=== PATIENT | female | born 1970 | race African-American/Black ===

== ENCOUNTER 2025-03-31 13:42 | Outpatient (CLI) | payer OTHER, MEDICAID, SELFPAY ==
--- OUTSIDE RECORDS SUMMARY | 2025-03-31 13:49 | XMS_ITS | Encounter Summary ---
Author Organization [facility] Address 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
--- OUTSIDE RECORDS SUMMARY | 2025-03-31 13:49 | XMS_ITS | Encounter Summary ---
Author Organization [facility] Address [address] [place] [address] Care Team Providers Care Validation Leader Name Role Phone Mannie Bhakta MD Primary Care Provider [phone] Encounter Details Date Type Department Care Team (Latest Contact Info) Description 06/18/[address] 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
--- OUTSIDE RECORDS SUMMARY | 2025-03-31 13:50 | XMS_ITS | CONTINUITY OF CARE DOCUMENT ---
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 completed - Dov Macario DO Syncope vasovagal seems likely active Dov Macario DO Palpitations active Dov Macario DO Dizziness completed - Dov Macario DO Carotid artery stenosis - bilateral active Dov Macario DO Hypercholesterolemia active Dov Macario DO Chest pain-type to be determined completed - Dov Macario DO Cardiology examination active Greg Macario DO ENCOUNTERS Date Type Provider Location Encounter Diag nosis 1 - 1 In-person encounter Office Visit Dov Barry Renaldo DO [place] [facility] 0 - 0 In-person encounter Office Visit Dov Presleyon Renaldo [place] [facility] Cardiology examination 9 - 9 In-person encounter Office Visit Dov Presleyon Renaldo DO [place] [facility] 9 - 9 In-person encounter Office Visit Dov Macario DO [facility] Office Leukopenia to see hematologi . 2 - 2 In-person encounter Office Visit Dov Macario DO [facility] 8 - 8 In-person encounter Office Visit Dov Macario DO [facility] Chest pain-type to be determined 9 - 7 In-person encounter Office Visit Allan [facility] 1 - 1 In-person encounter Office Visit Dov Macario DO [facility] 5 - 5 In-person encounter Office Visit Dov Macario DO [facility] Office 1 - 1 In-person encounter Office Visit Dov Macario DO [facility] DizzinessChest pain-type to be determined 9 - 9 In-person encounter Office Visit Dov Macario DO [facility] 8 - 8 In-person encounter Office Visit Dov Macario DO [facility] Office Dyspnea on exertionChest mary ann n atypicalCarotid artery stenosis - bilateralHypercholesterolemia 6 - 6 In-person encounter Office Visit Dov Macario DO [facility] Syncope vasovagal seems likelyPalpitations 4 - 4 In-person encounter Office Visit Dov [facility] Chest pain-type to be determinedClaudication Intermittent 5 - 5 In-person encounter Office Visit Dov Macario DO [facility] Family Hx heart disease VITAL SIGNS Date Observation Value Provider Body Mass Index (Ratio) 24.62 kg/m2 [facility] Barry Renaldo blood pressure, diastolic 73 mm[Hg] [facility], systolic 120 mm[Hg] Maggie [facility]St[facility] oxygen saturation, oximetry 99 % [facility] pulse rate 66 /min [facility] respiratory rate E&M 12 /min [facility] weight E&M 139 [lb_av] [facility] height E&M 63 [in_i] [facility] blood pressure, cuff size regular chicho Worrell Body Mass Index (Ratio) 25.15 kg/m2 [facility] Barry Renaldo blood pressure, diastolic 70 mm[Hg] Li nkLogic blood pressure, systolic 104 mm[Hg] Delilah kLogic blood pressure, diastolic 70 mm[Hg] Luanne motta Jaramillo blood pressure, systolic 104 mm[Hg] Yoli sin Jaramillo blood pressure, cuff size regular Luanne arorae Jaramillo pulse rate 70 /min [facility] Conrad s oxygen saturation, oximetry 98 % Janina Jaramillo weight E&M 142 [lb_av] Janina Conrad s height E&M 63 [in_i] Haigler Conrad s Body Mass Index (Ratio) 26.04 kg/m2 [facility] Barry Renaldo [place] blood pressure, diastolic 75 mm[Hg] Anju Frey blood pressure, systolic 102 mm[Hg] [facility] in [facility] pulse rate 62 /min [facility] oxygen saturation, oximetry 97 % [facility] respiratory rate E&M 16 /min [facility] blood pressure, cuff size regular [facility] weight E&M 147 [lb_av] [facility] height E&M 63 [in_i] [facility] Body Mass Index (Ratio) 27.63 kg/m2 [facility] blood pressure, diastolic 66 mm[Hg] An [facility] blood pressure, systolic 97 mm[Hg] Any pooja Max pulse rate 65 /min Radha Max oxygen saturation, oximetry 99 % Radha Max weight E&M 156 [lb_av] Radha Max blood pressure, cuff size large An marialuisa Max height E&M 63 [in_i] Radha Max Body Mass Index (Ratio) 27.81 kg/m2 [facility] Barry [facility] blood pressure, diastolic 62 mm[Hg] Yenni nkLog blood pressure, systolic 94 mm[Hg] Delilah kLog blood pressure, cuff size regular [facility] blood pressure, diastolic 62 mm[Hg] Ke rri [facility]he [facility] blood pressure, systolic 94 mm[Hg] Melania ri Jno oxygen saturation, oximetry 99 % Connie Jon respiratory rate E&M 14 /min Connie esparza pulse rate 74 /min Connie Suhail [facility] weight E&M 157 [lb_av] Connie Kimberleynenfe lder height E&M 63 [in_i] Connie Jang lder Body Mass Index (Ratio) 26.32 kg/m2 Allan Hancock MD blood pressure, diastolic 60 mm[Hg] Polly Zayas blood pressure, systolic 110 mm[Hg] Nelly Zayas oxygen saturation, oximetry 98 % Raji Zayas respiratory rate E&M 16 /min Floridalma Zayas pulse rate 86 /min Raji Edouard nssebastian weight E&M 148.6 [lb_av] Raji sommerson height E&M 63 [in_i] Raji Edouard nson Body Mass Index (Ratio) 26.04 kg/m2 Pramichell Leera DO blood pressure, diastolic 54 mm[Hg] Li nkLogic blood pressure, systolic 92 mm[Hg] Delilah kLogic blood pressure, resting No Rey ty [place] blood pressure, cuff size regular Kr isty Jose E weight E&M 147 [lb_av] Corazon Jose E respiratory rate E&M 18 /min Corazon [place] pulse rate 67 /min Corazon Jose E blood pressure, diastolic 54 mm[Hg] Kr isty [place] blood pressure, systolic 92 mm[Hg] Kri sty Jose E oxygen saturation, oximetry 99 % Corazon Jose E height E&M 63 [in_i] Corazon Jose E Body Mass Index (Ratio) 22.49 kg/m2 April Reddy Renaldo DO blood pressure, cuff size regular Kr isty [place] blood pressure, diastolic 60 mm[Hg] Kr isty [place] blood pressure, systolic 100 mm[Hg] Kri sty [place] pulse rate 87 /min Corazon oxygen saturation, oximetry 100 % Corazon respiratory rate E&M 19 /min Cor[place]on weight E&M 127 [lb_av] Corazon height E&M 63 [in_i] Corazon Body Mass Index (Ratio) 21.61 kg/m2 [facility] Barry Macario weight E&M 122 [lb_av] [facility] E&M 63 [in_i] [facility] Body Mass Index (Ratio) 23.03 kg/m2 [facility] Barry [facility] blood pressure, diastolic 70 mm[Hg] Jerry Northby blood pressure, systolic 102 mm[Hg] Jasmyne dario oxygen saturation, oximetry 95 % Corazon respiratory rate E&M 16 /min Corazon pulse rate 58 /min [place] blood pressure, cuff size regular Jerry sanford weight E&M 130 [lb_av] Corazon height E&M 63 [in_i] Corazon Body Mass Index (Ratio) 23.38 kg/m2 [facility] Barry [facility] pulse rate 57 /min [facility]ei [facility] oxygen saturation, oximetry 98 % Alexei Rodriguez blood pressure, diastolic 58 mm[Hg] Chaz Rodriguez blood pressure, systolic 94 mm[Hg] Rhiannon Rodriguez blood pressure, resting No Rhiannonr martha Rodriguez respiratory rate E&M 16 /min Alexei Rodriguez height E&M 63 [in_i] Alexei [facility] weight E&M 132 [lb_av] Alexei Mayers ski ALLERGIES No Known Drug Allergies RESULTS Date Observation Value Provider Reference Range Interpretation Location free thyroxine index 2.5 LinkLogic 1.2-4.9 triiodothyronine resin uptake 30 % LinkLogic 24-39 thyroxine, serum, total 8.4 ug/dL LinkLogic 4.5-12.0 thyroid stimulating hormone, serum 0.631 u[IU]/mL LinkLogic 0.450-4.500 lipoprotein, beta, serum, point, quantitative, calculated 163 mg/dL Link[facility]ic 0-99 High HDL cholesterol, serum 62 mg/dL LinkLogic >39 triglyceride, serum, random 63 mg/dL LinkLogic 0-149 cholesterol, serum 236 mg/dL Link[facility]ic 100-199 High alanine aminotransferase (SGPT), serum 16 1/L Link[facility]ic 0-32 aspartate aminotransferase (SGOT), serum 17 1/L Link[facility]ic 0-40 alkaline phosphatase, serum 73 1/L [facility] 44-121 bilirubin, serum, total 0.8 mg/dL [facility] 0.0-1.2 globulin, serum 2.9 [facility] 1.5-4.5 albumin, serum 4.8 g/dL [facility]ic 3.8-4.9 protein, total, serum 7.7 g/dL [facility] 6.0-8.5 calcium, serum 9.8 mg/dL [facility]ic 8.7-10.2 carbon dioxide, venous blood 21 mmol/L Link[facility]ic 20-29 chloride, serum 103 mmol/L Link[facility]ic 96-106 potassium, serum 4.1 mmol/L LinkLogic 3.5-5.2 sodium, serum 141 mmol/L Link[facility]ic 026-405 2136/03/ 16 urea nitrogen/creatinine ratio, serum 18 Link[facility]ic 9-23 creatinine, serum 0.76 mg/dL [facility]ic 0.57-1.00 urea nitrogen, blood 14 mg/dL Link[facility]ic 6-24 blood glucose, random 83 mg/dL Link[facility]ic 70-99 basophil count, absolute 0.0 x10E3/uL LinkLogic 0.0-0.2 Eosinophil Absolute Count 0.0 X10E3/UL LinkLogic 0.0-0.4 monocyte count, blood, automated 0.4 X10E3/UL LinkLogic 0.1-0.9 lymphocyte count, blood, automated 0.9 X10E3/UL Link[facility]ic 0.7-3.1 Absolute Neutrophils 2.1 X10E3/UL LinkLogic 1.4-7.0 basophils as percent of blood leukocytes 0 % LinkLogic Not Estab. eosinophils as percent of blood leukocytes 1 % LinkLogic Not Estab. monocytes as percent of blood leukocytes 10 % LinkLogic Not Estab. lymphocytes as percent of blood leukocytes 27 % LinkLogic Not Estab. neutrophils as percent of blood leukocytes 62 % LinkLogic Not Estab. platelet count 235 X10E3/UL [facility] 704-853 5677/03/ 15 red blood cell distribution width 12.3 % Link[facility]ic 11.7-15.4 mean corpuscular hemoglobin concentration, RBC 33.5 G/DL Link[facility]ic 31.5-35.7 mean corpuscular hemoglobin, RBC 32.9 pg LinkLogic 26.6-33.0 mean corpuscular volume, RBC 98 fL LinkLogic 79-97 High hematocrit, blood 38.2 % LinkLogic 34.0-46.6 hemoglobin, blood 12.8 g/dL LinkLogic 11.1-15.9 erythrocyte (RBC) count 3.89 X10E6/UL LinkLogic 3.77-5.28 leukocyte count, blood 3.4 X10E3/UL LinkLogic 3.4-10.8 Estimated Glomerular Filtration Rate (calc) 105 mL/min/{ 1.73_m2} [place] [address] cholesterol, non-HDL, total 95 mg/dL [place] [address] HDL CHOLESTEROL 54 mg/dL LinkLogic >=40 Normal , [place] [address] triglyceride, serum, fasting 54 mg/dL LinkLogic <=149 Normal , [place] [address] cholesterol, serum 149 mg/dL LinkLogic 30-199 Normal , [place] [address] aspartate aminotransferase (SGOT), serum 30 1/L LinkLogic 10-45 Normal [place] [address] alanine aminotransferase (SGPT), serum 30 1/L LinkLogic 7-45 Normal , [place] [address] Alkaline phosphatase 62 LinkLogic 40-130 Normal C, [place] [address] albumin, serum 4.3 g/dL LinkLogic 3.5-5.0 Normal [place] [address] protein, total, serum 7.3 g/dL LinkLogic 6.5-8.5 Normal [place] [address] bilirubin, serum, total 0.4 mg/dL LinkLogic 0.1-1.2 Normal [place] [address] calcium, serum 8.4 mg/dL LinkLogic 8.5-10.3 Low C, [place] [address] blood glucose, random 107 mg/dL LinkLogic 70-199 Normal , [place] [address] creatine, serum 0.66 mg/dL LinkLogic 0.60-1.10 Normal C, [place] [address] urea nitrogen, blood 11 mg/dL LinkLogic 8-25 Normal C, [place] [address] anion gap, serum 12 mmol/L LinkLogic 2-15 Normal C, [place] [address] carbon dioxide, venous blood 20 mmol/L LinkLogic 22-32 Low C, [place] [address] chloride, serum 105 mmol/L LinkLogic 97-110 Normal , [place] [address] potassium, serum 4.3 MMOL/L LinkLogic 3.3-4.9 Normal , [place] [address] sodium, serum 137 mmol/L LinkLogic 135-145 Normal C, [place] [address] thyroid stimulating hormone, serum 1.40 MCIUNIT/ ML LinkLogic 0.30-4.20 Normal , [place] [address] Absolute Basophils 0.0 K/CUMM LinkLogic 0.0-0.1 Normal , [place] [address] Absolute Monocytes 0.4 K/CUMM LinkLogic 0.2-0.8 Normal , [place] [address] Absolute Lymphocytes 1.1 K/CUMM LinkLogic 0.8-3.3 Normal , [place] [address] Absolute Neutrophils 2.5 K/CUMM LinkLogic 1.7-6.5 Normal C, [place] [address] nucleated red blood cells as percent of blood leukocytes 0.00 K/CUMM LinkLogic 0.00-0.01 Normal red blood cell distribution width, size density 39.4 fL LinkLogic 35.7-48.1 Normal mean corpuscular hemoglobin concentration, RBC 34.4 G/DL LinkLogic 32.3-35.7 Normal mean corpuscular hemoglobin, RBC 32.6 pg LinkLogic 27.1-33.3 Normal mean corpuscular volume, RBC 94.9 fL LinkLogic 81.3-96.4 Normal erythrocyte count, whole blood 3.89 M/CUMM LinkLogic 3.90-5.20 Low mean platelet volume 9.8 fL LinkLogic 9.1-12.3 Normal platelet count 264 10*3/uL LinkLogic 150-400 Normal hematocrit, blood 36.9 % LinkLogic 35.6-45.5 Normal hemoglobin, blood 12.7 g/dL LinkLogic 11.9-15.5 Normal Estimated Glomerular Filtration Rate (calc) 108 mL/min/{ 1.73_m2} LinkLogic C, [place] [address] cholesterol, non-HDL, total 102 mg/dL LinkLogic C, [place] [address] HDL CHOLESTEROL 63 mg/dL LinkLogic >=40 Normal , [place] [address] triglyceride, serum, fasting 51 mg/dL LinkLogic <=149 Normal C, [place] [address] cholesterol, serum 165 mg/dL LinkLogic 30-199 Normal , [place] [address] aspartate aminotransferase (SGOT), serum 17 1/L LinkLogic 10-45 Normal C, [place] [address] alanine aminotransferase (SGPT), serum 21 1/L LinkLogic 7-45 Normal C, [place] [address] Alkaline phosphatase 66 LinkLogic 40-130 Normal C, [place] [address] albumin, serum 4.3 g/dL LinkLogic 3.5-5.0 Normal C, [place] [address] protein, total, serum 7.1 g/dL LinkLogic 6.5-8.5 Normal , [place] [address] bilirubin, serum, total 0.9 mg/dL LinkLogic 0.1-1.2 Normal , [place] [address] calcium, serum 8.4 mg/dL LinkLogic 8.5-10.3 Low C, [place] [address] blood glucose, random 102 mg/dL LinkLogic 70-199 Normal , [place] [address] creatine, serum 0.62 mg/dL LinkLogic 0.60-1.10 Normal , [place] [address] urea nitrogen, blood 12 mg/dL LinkLogic 8-25 Normal C, [place] [address] anion gap, serum 12 mmol/L LinkLogic 2-15 Normal C, [place] [address] carbon dioxide, venous blood 22 mmol/L LinkLogic 22-32 Normal C, [place] [address] chloride, serum 105 mmol/L LinkLogic 97-110 Normal C, [place] [address] potassium, serum 4.1 MMOL/L LinkLogic 3.3-4.9 Normal C, [facility] [address] [facility] [address] sodium, serum 139 mmol/L LinkLogic 135-145 Normal C, [address] [address] lipoprotein, beta, serum, point, quantitative, calculated 135 mg/dL LinkLogic 0-99 High HDL cholesterol, serum 65 mg/dL LinkLogic >39 triglyceride, serum, random 73 mg/dL LinkLogic 0-149 cholesterol, serum 213 mg/dL LinkLogic 100-199 High alanine aminotransferase (SGPT), serum 10 1/L LinkLogic 0-32 aspartate aminotransferase (SGOT), serum 13 1/L LinkLogic 0-40 alkaline phosphatase, serum 52 1/L LinkLogic 39-117 bilirubin, serum, total 0.9 mg/dL LinkLogic 0.0-1.2 albumin/globulin ratio, serum 1.7 LinkLogic 1.2-2.2 globulin, serum 2.5 LinkLogic 1.5-4.5 albumin, serum 4.2 g/dL LinkLogic 3.8-4.8 protein, total, serum 6.7 g/dL LinkLogic 6.0-8.5 calcium, serum 8.8 mg/dL LinkLogic 8.7-10.2 carbon dioxide, venous blood 23 mmol/L LinkLogic 20-29 chloride, serum 105 mmol/L LinkLogic 96-106 potassium, serum 4.4 mmol/L LinkLogic 3.5-5.2 sodium, serum 137 mmol/L LinkLogic 458-595 8055/04/ 17 urea nitrogen/creatinine ratio, serum 14 LinkLogic 9-23 eGFR if 109 mL/min/{ 1.73_m2} LinkLogic >59 eGFR if not 95 mL/min/{ 1.73_m2} LinkLogic >59 creatinine, serum 0.74 mg/dL LinkLogic 0.57-1.00 urea nitrogen, blood 10 mg/dL LinkLogic 6-24 blood glucose, random 104 mg/dL LinkLogic 65-99 High lipoprotein, beta, serum, point, quantitative, calculated 91 mg/dL LinkLogic 0-99 HDL cholesterol, serum 63 mg/dL LinkLogic >39 triglyceride, serum, random 47 mg/dL LinkLogic 0-149 cholesterol, serum 164 mg/dL LinkLogic 100-199 HISTORY OF MEDICATION USE Medication Status Instructions Dates Provider Indications Com ments magnesium oxide 250 mg magnesium tablet active Take 1 tablet by mouth every night Dov Macario DO Zetia 10 mg tablet active Take 1 tablet by mouth once a day Dov Macario DO rosuvastatin 20 mg tablet completed Take 1 tablet by mouth every night due for follow up - Dov Macario DO rosuvastatin 20 mg tablet completed Take 1 tablet by mouth every night - Connie Webb Protonix 40 mg tablet,delayed release (DR/EC) completed Take 1 tablet by mouth once a day - Allan Hancock MD rosuvastatin 20 mg tablet completed Take 1 tablet by mouth once a day - Dov Macario DO Crestor 20 mg tablet completed 1 tablet by mouth once a day - Dov Macario DO aspirin 81 mg tablet,delayed release (DR/EC) active 1 tablet by mouth once a day Dov Macario DO IBUPROFEN 200 MG ORAL TABLET completed as needed - Eleanor Marcelo SOCIAL HISTORY Date Observation Value Provider smoking status Never smoker Radha Max smoking status Never smoker Connie tapia social history E&M S moking History: Adolfo mi has never smoked. Allan Hancock MD social history reviewed E&M philippe herreraed - no changes required Allan Hancock MD smoking status Never smoker Raji Tinoco smoking status Never smoker Corazon Dorantes smoking status Never smoker Corazon Dorantes smoking status Never smoker Eleanor sims smoking status Never smoker Corazon Dorantes smoking status Never smoker Alexei Gracie simeon FAMILY HISTORY Family Member Condition Father Family History of Co ronary Artery Disease: Mother Family History of Re nal Disease: Mother Family History of Hy pertension: INSURANCE PROVIDERS Payer name Policy type / Coverage type [place] [employer] party ID [employer] Commercial insurance co [facility] [id number] [facility] Medicaid 1 [id number] ADVANCE DIRECTIVES Name Date DISCUSSED - NO DECISION MADE TREATMENT PLAN Date Name Performer [id number],C, L DL 135 Trigs 73 in . L abs 03/23: chem ok, LDL 92 Trigs 51 r echeck in this upcoming march range g oal LDL < 70 Her updated medication list for this problem includes: Rosuvastatin 20 Mg Tablet (Rosuvastatin) ..... Take 1 tablet by mouth once a day Dov Barry Renaldo [place] [id number],C, m oderate bilateral 02/2020 c ta denied r epeat duplex moderate ica dz bilaterally r epeat in Carotid duplex 02/21 moderate LICA stenosis. a spirin o n statin Dov Macario DO [id number],C, n ormal telesentry i advised her to decrease caffeine intake. H er updated medication list for this problem includes: Aspirin 81 Mg Tablet,delayed Release (dr/ec) (Aspirin) ..... 1 tablet by mouth once a day Dov Macario DO [id number],C, n ormal telesentry i advised her to decrease caffeine intake. H er updated medication list for this problem includes: Aspirin 81 Mg Tablet,delayed Release (dr/ec) (Aspirin) ..... 1 tablet by mouth once a day Dov Macario [id number],C,L DL 135 Trigs 73 in 21. H er updated medication list for this problem includes: Rosuvastatin 20 Mg Tablet (Rosuvastatin) ..... Take 1 tablet by mouth once a day Dov Macario DO [id number],C, m oderate bilateral 02/2020 c ta denied r epeat duplex 21 moderate ica dz bilaterally r epeat in Carotid duplex 02/21 moderate LICA stenosis. a spirin o n statin Dov Barrysebastian Macario DO [id number],B, n ormal telesentry last month i advised her to decrease caffeine intake. H er updated medication list for this problem includes: Aspirin 81 Mg Tablet,delayed Release (dr/ec) (Aspirin) ..... 1 tablet by mouth once a day Allan Hancock MD [id number],B, n ormal telesentry last month i advised her to decrease caffeine intake. Allan Hancock MD [id number],C, m oderate bilateral 02/2020 c ta denied r epeat duplex 21 moderate ica dz bilaterally per Dr Macario r epeat in a spirin o n statin Allan Hancock MD [id number],C, H er updated medication list for this problem includes: Rosuvastatin 20 Mg Tablet (Rosuvastatin) ..... Take 1 tablet by mouth once a day Allan Hancock MD [id number],C, R derrickiewed her past testing including negative nuc reg 08/2020, CCS 0 in 08/2020, normal telesentry 07/2021, normal echo 02/2020. I suspect her symptoms are noncardiac etiology. Will try her on protonix which may help if GERD Prevention / risk reduction of CAD based on AHA/ACC guidelines involving Smoking, Blood Pressure control, Lipid management, Physical activity, Weight management, Diabetes management, use of antiplatelet / anticoagulant agents, Renin Angiotensin-aldosterone system blockers, beta blockers, and compliance with medications discussed with patient. Her updated medication list for this problem includes: Aspirin 81 Mg Tablet,delayed Release (/ec) (Aspirin) ..... 1 tablet by mouth once a day Allan Hancock MD [id number],C, t gab in 02/2020 was nml, nsr h aving more palps Dov Macario DO [id number],C, m oderate bilateral 02/2020 c ta denied r epeat duplex 21 moderate ica dz bilaterally r epeat in a spirin o n statin Dov Macario DO [id number],C, L abs 08/21 LDL 91, Trigs 47 h as pvd started crestor 20 takes every other day r echeck 21: LDL 135 Trigs 73 h ad been off statin will resume (has carotid dz) Her updated medication list for this problem includes: Rosuvastatin 20 Mg Tablet (Rosuvastatin) ..... Take 1 tablet by mouth once a day Dov Macario DO Cardiology: L DL 135 Trigs 73 in . L abs 03/23: chem ok, LDL 92 Trigs 51 r echeck in this upcoming march range L DL 84 in 11/24 n ot tolerating rosuvastatin - does not tolerate L abs 12/26: LDL 158, chem ok LFTs ok g oal LDL < 70 t ry zetia L abs : LDL 163, tsh ok, chem ok, cbc ok. h as not been on zetia will resend. This visit has been a part of the consistent, comprehensive, and ongoing management of the chronic medical condition(s) listed above for patient. Dov Macario DO Cardiology: n ormal telesentry i advised her to decrease caffeine intake. she feels like its' caffeine related. 1 week tele pending try mg at night m ay consider low dose bb but has resting hr 60s and hesitant to try new meds. Her updated medication list for this problem includes: Aspirin 81 Mg Tablet,delayed Release (dr/ec) (Aspirin) ..... 1 tablet by mouth once a day Dov Macario DO Cardiology: m oderate bilateral 02/2020 c ta denied r epeat duplex 21 moderate ica dz bilaterally r epeat in 22 Carotid duplex 02/21 moderate LICA stenosis. m oderate in 23 r echeck 24 mild plaque r epeat 26 range. a spirin dnt statin t ry zetia L abs : LDL 163, tsh ok, chem ok, cbc ok h as not been on zetia will resend. Dov Macario DO Cardiology: m oderate bilateral 02/2020 c ta denied r epeat duplex 21 moderate ica dz bilaterally r epeat in 22 Carotid duplex 02/21 moderate LICA stenosis. m oderate in 23 r echeck 24 mild plaque r epeat 26 range. a spirin dnt statin t ry zetia r echeck lipid Dov Macario DO Cardiology: L DL 135 Trigs 73 in . L abs 03/23: chem ok, LDL 92 Trigs 51 r echeck in this upcoming march range L DL 84 in 11/24 n ot tolerating rosuvastatin - does not tolerate L abs 12/26: LDL 158, chem ok LFTs ok g oal LDL < 70 t ry zetia r echeck per pcp around fall 2023 range. This visit has been a part of the consistent, comprehensive, and ongoing management of the chronic medical condition(s) listed above for patient. Dov Macario DO Cardiology:normal te lesentry i advised her to decrease caffeine intake. 1 week tele try mg at night m vonnie millersider low dose bb Her updated medication list for this problem includes: Aspirin 81 Mg Tablet,delayed Release (dr/ec) (Aspirin) ..... 1 tablet by mouth once a day Dov Macario DO Cardiology: n ormal telesentry i advised her to decrease caffeine intake. H er updated medication list for this problem includes: Aspirin 81 Mg Tablet,delayed Release (dr/ec) (Aspirin) ..... 1 tablet by mouth once a day Dov Macario DO Cardiology: m oderate bilateral 02/2020 c ta denied r epeat duplex 21 moderate ica dz bilaterally r epeat in 22 Carotid duplex 4 moderate LICA stenosis. m oderate in 23 r echeck 24 mild plaque r epeat 26 range. a spirin dnt statin t ry zetia r echeck lipid This visit has been a part of the consistent, comprehensive, and ongoing management of the chronic medical condition(s) listed above for patient. Dov Macario DO Cardiology: L DL 135 Trigs 73 in 21. L abs 03/23: chem ok, LDL 92 Trigs 51 r echeck in this upcoming march range L DL 84 in 11/24 n ot tolerating rosuvastatin - does not tolerate L abs 12/26: LDL 158, chem ok LFTs ok g oal LDL < 70 t ry zetia r echeck per pcp around fall 2023 range. This visit has been a part of the consistent, comprehensive, and ongoing management of the chronic medical condition(s) listed above for patient. Dov Macario DO Cardiology: n ormal telesentry i advised her to decrease caffeine intake. H er updated medication list for this problem includes: Aspirin 81 Mg Tablet,delayed Release (dr/ec) (Aspirin) ..... 1 tablet by mouth once a day Dov Macario DO Cardiology: m oderate bilateral 02/2020 c ta denied r epeat duplex 21 moderate ica dz bilaterally r epeat in 22 Carotid duplex 4 moderate LICA stenosis. m oderate in 23 r echeck 24 a spirin o n statin Dov Macario DO Cardiology: L DL 135 Trigs 73 in 21. L abs 03/23: chem ok, LDL 92 Trigs 51 r echeck in this upcoming march range L DL 84 in 11/24 n ot tolerating rosuvastatin - does not tolerate L abs 12/26: LDL 158, chem ok LFTs ok g oal LDL < 70 c onsider [facility] prevent. she is interested. has first degree relatives with cad/mi < 55. will check lpa and crp. a scvd currently 1% H er updated medication list for this problem includes: Rosuvastatin 20 Mg Tablet (Rosuvastatin) ..... Take 1 tablet by mouth once a day Dov Macario TeleHealth: L DL 135 Trigs 73 in 21. L abs 03/23: chem ok, LDL 92 Trigs 51 r echeck in this upcoming march range g oal LDL < 70 Her updated medication list for this problem includes: Rosuvastatin 20 Mg Tablet (Rosuvastatin) ..... Take 1 tablet by mouth once a day Dov Macario TeleHealth: m oderate bilateral 02/2020 c ta denied r epeat duplex 21 moderate ica dz bilaterally r epeat in 22 Carotid duplex 02/21 moderate LICA stenosis. a spirin o n statin Dov Macario TeleHealth: n ormal telesentry i advised her to decrease caffeine intake. H er updated medication list for this problem includes: Aspirin 81 Mg Tablet,delayed Release (dr/ec) (Aspirin) ..... 1 tablet by mouth once a day Dov Macario Cardiology: n ormal telesentry i advised her to decrease caffeine intake. H er updated medication list for this problem includes: Aspirin 81 Mg Tablet,delayed Release (dr/ec) (Aspirin) ..... 1 tablet by mouth once a day Dovvalente Macario Cardiology:LDL 135 T rigs 73 in 21. H er updated medication list for this problem includes: Rosuvastatin 20 Mg Tablet (Rosuvastatin) ..... 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 a spirin o n statin Dov Macario Cardiology: n ormal telesentry last month i advised her to decrease caffeine intake. H er updated medication list for this problem includes: Aspirin 81 Mg Tablet,delayed Release (dr/ec) (Aspirin) ..... 1 tablet by mouth once a day Allan Hancock MD Cardiology: n ormal telesentry last month i advised her to decrease caffeine intake. 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 Take 1 tablet by mouth once a day Allan Hancock MD Cardiology: R eviewed her past testing including negative nuc reg 08/2020, CCS 0 in 08/2020, normal telesentry 07/2021, normal echo 02/2020. I suspect her symptoms are noncardiac etiology. Will try her on protonix which may help if GERD Prevention / risk reduction of CAD based on AHA/ACC guidelines involving Smoking, Blood Pressure control, Lipid management, Physical activity, Weight management, Diabetes management, use of antiplatelet / anticoagulant agents, Renin Angiotensin-aldosterone system blockers, beta blockers, and compliance with medications discussed with patient. Her updated medication list for this problem includes: Aspirin 81 Mg Tablet,delayed Release (/ec) (Aspirin) ..... 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 Take 1 tablet by mouth once a day Dov Macario DO TeleHealth: t gab in 02/2020 was nml, nsr no significant arrhtyhmias Dov Macario DO TeleHealth: L abs 08/21 LDL 91, Trigs 47 h as pvd started crestor 20 takes every other day r echspring I spent between 11-20 minutes discussing with the patient regarding symptoms, available test results, and plan of care. Her updated medication list for this problem includes: Crestor 20 Mg Oral Tablet (Rosuvastatin calcium) ..... One tab. daily Dov Macario DO TeleHealth: m oderate bilateral 02/2020 c ta denied r epeat duplex 21 a spirin o n statin Dov Macario DO TeleHealth: t gab in 02/2020 was nml, nsr no significant arrhtyhmias Dov Macario DO TeleHealth: m oderate bilateral c ta denied r epeat duplex 21 a spirin n eeds statin Dov Macario DO TeleHealth: L abs 08/21 LDL 91, Trigs 47 h as pvd started crestor 20 r echspring I spent between 11-20 minutes discussing with the patient regarding symptoms, available test results, and plan of care. Her updated medication list for this problem includes: Crestor 20 Mg Oral Tablet (Rosuvastatin calcium) ..... One tab. daily Dov Macario DO Cardiology:stress te st c oronary ca score c ont aspirin s tatin s eilo family history of heart dz Dov Macario DO Cardiology: n o meds o n tele e cho ok s tress test ok e nt eval? Dov Macario DO Cardiology: c heck panel now then in f/u h as pvd start crestor 20 Dov Macario DO Cardiology: m oderate bilaterl c ta denied r epeat duplex 21 a spirin n eeds statin Dov Macario DO TeleHealth:check bowen el l ikely needs statin has pvd Dov Macario DO TeleHealth:tele pending Dov Macario DO TeleHealth:no meds o n tele e cho ok s tress test ok e nt eval? Dov Macario DO TeleHealth:moderate bilaterl c ta denied r epeat duplex 21 a spirin l ikely needs statin Dov Macario DO TeleHealth: l ess likely cardiac r eassuring tests I spent greater than 20 minutes discussing with the patient regarding symptoms, available test results, and plan of care. Dov Macario DO TeleHealth: e cho s tress c xr all good Dov Macario DO TeleHealth: l ess likely cardiac r eassuring tests I spent between 10-20 minutes discussing with the patient regarding symptoms, available test results, and plan of care. Dov Macario DO Cardiology:less like ly cardiac r eassuring tests Dov Macario DO Cardiology: e cho s tress c xr all good Dov Macario DO Cardiology:adolph Dov ventura DO Cardiology:echo s tress n eed labs c xr Dov Macario DO Cardiology:echo s tress n eed labs c xr Dov Macario Date Name LIPID PANEL CBC (INCLUDES DIFF/P LT) TSH, free T4, total T3 COMPREHENSIVE METABO LIC PANEL, W/EGFR Monitor - Telemetry (Mobile Cardiac) EKG Carotid Duplex Bilat eral Lipoprotein (a) LIPID PANEL CRP, high sensitivit y Monitor - Telemetry (Mobile Cardiac) Carotid Duplex Bilat eral TSH, free T4, total T3 HEMOGLOBIN A1c COMPREHENSIVE METABO LIC PANEL, W/EGFR CBC (INCLUDES DIFF/P LT) LIPID PANEL LIPID PANEL COMPREHENSIVE METABO LIC PANEL, W/EGFR Carotid Duplex Bilat eral Monitor - Telemetry (Mobile Cardiac) COMPREHENSIVE METABO LIC PANEL, W/EGFR LIPID PANEL COMPREHENSIVE METABO LIC PANEL, W/EGFR LIPID PANEL Carotid Duplex Bilat eral LIPID PANEL COMPREHENSIVE METABO LIC PANEL, W/EGFR CT, Coronary Calcium Score Carotid Duplex Bilat eral Stress Exercise Card iolite LIPID PANEL CT Angio, Carotids Complete Echo Carotid Duplex Bilat eral Carotid Duplex Bilat eral Mobile Cardiac Tele X-Ray, Chest - Routi ne Arterial Duplex Bi-L ower EX STR - Nuclear Complete Echo HISTORY OF PROCEDURES Procedure Date Procedure Name Provider Procedure Notes S tatus Complex e/m visit ad d on Dov Barry Renaldo DO completed EKG Dov Barry Ch lorenzo DO completed Complex e/m visit ad d on Dov Barry Renaldo DO completed EKG Dov Barry Ch lorenzo DO completed Complex e/m visit ad d on Dov Barry Renaldo DO completed EKG Dov Barry Ch lorenzo DO completed Event Monitor Dov Barry Ch lorenzo DO completed Schedule Followup Allan Hancock MD PC 2 mo com pleted EKG Dov Barry Ch lorenzo DO completed CT- Coronary CA score Dovrojelio rawls Renaldo DO completed Stress EKG Dov Barry Ch lorenzo DO completed Cardiolite, 2 units Sandip Leone MD completed SPECT Images Sandip Leone MD complet ed CT- Coronary CA score Dov Macario DO completed EKG Dov Reddy Ch lorenzo DO completed Event Monitor Dov Reddy Ch lorenzo DO completed EKG Dov Reddy Ch lorenzo DO completed Cardiolite, 2 units Dov Macario DO completed SPECT Images Sandip Leone MD complet ed Stress EKG Sandip Leone MD completed EKG Dov ventura DO completed
--- OUTSIDE RECORDS SUMMARY | 2025-03-31 13:50 | XMS_ITS | Encounter Summary ---
Author Organization [facility] Health Address [address] [place] [address] Care Team Providers Care Manager Technical Services Name Role Phone Alie Stack NEMATOLOGY TEACHER-ROUSTABOUT HAND Primary Care Provider Encounter Details Date Type Department Care Team (Late st Contact Info) Description 08/04/2018 [facility] Outpatient Visit [facility] [address] [place] [address] [place] [id number] [id number] Social History Tobacco Use Types Packs/Day Years Used Date Smoking Tobacco: Never Smokeless Tobacco: Never Alcohol Use Standard Drinks/Week Comments Yes 2.5 (1 standard drink = 0.6 oz p ure alcohol) Comments No Sex and Gender Information Value Date Recorded Sex Assigned at Not on file Legal Sex Female 6:27 AM NANETTE Gender Identity Not on file Sexual Orientation Not on file documented as of this encounter Functional Status * Is person deaf or have serious hearing difficulty? Answer Date of Assessment Author No 11/13/2017 10:06 AM Yudith Sylvester RN * Is person blind or have serious difficulty seeing? Answer Date of Assessment Author No 11/13/2017 10:06 AM Yudith Sylvester RN * Does person have serious difficulty walking/climbing stairs? Answer Date of Assessment Author No 11/13/2017 10:06 AM Yudith Sylvester RN * Does person have difficulty dressing/bathing? Answer Date of Assessment Author No 11/13/2017 10:06 AM Yudith Sylvester RN * Does person have difficulty doing errands alone? Answer Date of Assessment Author No 11/13/2017 10:06 AM Yudith Sylvester RN documented as of this encounter Mental Status * Does person have difficulty concentrating/remembering/making decisions? Answer Entry Date Author No 11/13/2017 10:06 AM Yudith Sylvester RN documented in this encounter Plan of Treatment Not on file documented as of this encounter Visit Diagnoses Not on filedocumented in this encounter Additional Health Concerns Infection Onset Date Last Indicated Resolved Time COVID-19 Under Investigation 05/15/2020 05/15/2020 05/16/2020 2:18 PM CDT COVID-19 Under Investigation 08/03/2023 08/03/2023 08/04/2023 2:45 AM CDT documented as of this encounter Care Teams Manager Technical Services Relationship Specialty Start Date End Date Alie Stack, NEMATOLOGY TEACHER-ROUSTABOUT HAND [address] [facility] [address] [place] [phone] PCP - General 11/19/21 documented as of this encounter
--- OUTSIDE RECORDS SUMMARY | 2025-03-31 13:50 | XMS_ITS | Referral Summary ---
Author Organization [facility] Address [address] [place] [address] Care Team Providers Care Wood Die Maker Name Role Phone Nicky Woodard PT Unavailable Unavailable Kelsea Reyes PT Unavailable Unavailable Claude Alegria MD Unavailable [phone] Teo Reyes PT Unavailable Unavailable Niya Bush NP Primary Care Provider [phone] Encounters Date Type Department Care Team Description 03/27/20 6:40 PM CDT - 03/27/20 9:56 PM CDT Emergency [facility] Emergency Department [address] [place] [address] Lisa Frances MD Abdominal pain, generalized (Primary Dx); Enteritis Discharge Disposition: Discharge to home or self care 03/18/20 10:44 AM CDT - 03/18/20 11:59 PM CDT Hospital Encounter [facility] [address] [place] [address] Pelvic and perineal pain Discharge Disposition: Discharge to home or self care 02/29/20 Results Follow-Up [facility] Gastroenterology at [address] [place] [address] Rian Flores DO Surgical pathology 02/24/20 11:40 AM CDT - 02/24/20 12:20 PM CDT Surgery [facility] [address] [place] [address] Klucka, Rian T., DO ESOPHAGOGASTRODUODENOSCOPY BIOPSY 02/24/20 11:37 AM CDT Anesthesia Event [facility] [address] [place] [address] Mariangel Voss MD Zirkelbach, Cecilia A., CRNA 02/24/20 10:29 AM CDT - 02/24/20 1:17 PM CDT Hospital Encounter [facility] [address] [place] [address] Rian Flores, Gastroesophageal reflux disease, unspecified whether esophagitis present; Abdominal pain Discharge Disposition: Discharge to home or self care 02/22/20 Telephone [facility] Gastroenterology at [address] [place] [address] Suzy Herrera 02/11/20 Telephone [facility] Gastroenterology at [address] [place] [address] Suzy Herrera 01/04/20 Telephone [facility] Gastroenterology at [address] [place] [address] Lindsay Campoverde LPN 01/04/20 Telephone [facility] Gastroenterology at [address] [place] [address] Lindsay Campoverde LPN 01/04/20 Results Follow-Up [facility] Gastroenterology at [address] [place] [address] Rian Flores, DO CT Abdomen and Pelvis Enterography W Contrast 01/03/20 2:02 PM BEATER ENGINEER HELPER - 01/03/20 11:59 PM BEATER ENGINEER HELPER Hospital Encounter [facility] Imaging and Radiology [address] [place] [address] Abdominal pain; Abnormal finding on GI tract imaging Discharge Disposition: Discharge to home or self care from Last 3 Months Allergies Active Allergy Reactions Criticality Noted Date Comments Amoxicillin Dizziness Low 08/03/2023 Metronidazole Other (See comments),Rash High 03/30/2019 RASH WITH NAUSEA AND VOMITING Medications rosuvastatin (CRESTOR) 20 mg tablet Take 1 tablet (20 mg total) by mouth daily 11/12/19 21 Active lidocaine viscous (XYLOCAINE) 2 % solution Apply 15 mL to the mouth or throat every 4 (four) hours as needed (Sore throat) 100 mL 06/19/20 23 Active cyclobenzaprine (FLEXERIL) 5 mg tablet Take 1 tablet (5 mg total) by mouth 3 (three) times a day as needed for muscle spasms 30 tablet 08/04/20 23 Active aspirin 81 mg enteric coated tablet Take 1 tablet (81 mg total) by mouth daily Active ondansetron ODT (ZOFRAN-ODT) 4 mg disintegrating tablet Take 1 tablet (4 mg total) by mouth every 8 (eight) hours as needed for nausea or vomiting 30 tablet 10/15/20 23 Active ketoconazole (NIZORAL) 2 % cream Apply topically 2 (two) times a day 60 g 2 01/21/20 24 Active albuterol HFA (PROVENTIL HFA,VENTOLIN HFA,PROAIR HFA) 90 mcg/actuation inhaler Inhale 2 puffs every 6 (six) hours as needed for wheezing or shortness of breath 1 each 2 06/07/20 24 Active ezetimibe (ZETIA) 10 mg tablet Take 1 tablet (10 mg total) by mouth daily Active omeprazole (PriLOSEC) 40 mg capsule Take 1 capsule (40 mg total) by mouth daily 90 capsule 3 02/24/20 25 026 Active hyoscyamine (LEVSIN) 0.125 mg SL tabletIndications :Urinary Incontinence Take 1 tablet (0.125 mg total) by mouth every 6 (six) hours as needed for cramping 120 tablet 3 02/24/20 25 025 Active dicyclomine (BENTYL) 20 mg tablet Take 1 tablet (20 mg total) by mouth 2 (two) times a day 20 tablet 03/27/20 25 026 Active promethazine (PHENERGAN) 25 mg tablet Take 1 tablet (25 mg total) by mouth every 6 (six) hours as needed for nausea 20 tablet 03/27/20 25 Active traMADoL (ULTRAM) 50 mg tablet Take 1 tablet (50 mg total) by mouth every 6 (six) hours as needed for pain 12 tablet 03/27/20 25 Active dicyclomine (BENTYL) 10 mg capsule Take 1 capsule (10 mg total) by mouth 4 (four) times a day as needed (Pain.) 360 capsule 3 12/27/19 25 025 Discontinued Active Problems Problem Noted Date Diagnosed Date Lumbar facet arthropathy 02/16/2024 Statin intolerance 12/21/2023 Vitamin D deficiency 12/03/2023 Palpitations 09/01/2023 Vertigo 09/01/2023 MATTEO (obstructive sleep apnea) 09/01/2023 Multiple thyroid nodules 08/10/2023 Assessment & Plan (08/10/2023 10:40 AM CDT): Large TR3 nodule on L thyroid measuring 5.4 x 3.3 x 2.6 cm. She is currently euthyroid, with TSH 1.22 and FT4 1.07 and FT3 2.7. - Discussed possibility of FNA as per patient preference -- If she does not want to proceed with FNA, repeat thyroid US in 1 year - Asked patient to bring in herbs that she takes to next visit to determine if any may contain iodine Low vitamin D level 08/10/2023 Assessment & Plan (08/10/2023 10:40 AM CDT): Last 25-OH D was 13. Fatigue likely 2/2 vit D deficiency. - Continue vitamin D 2000 IU daily - Start vitamin D 28061 IU weekly Bilateral carotid artery stenosis 06/22/2023 Neurological symptoms 06/22/2023 Encounter for screening for malignant neoplasm o f colon 04/24/2023 Abdominal pain 04/24/2023 Pharyngoesophageal dysphagia 02/24/2023 Prediabetes 01/19/2023 Overview (01/19/2023): at goal and unlikely to be contributing Assessment & Plan (12/21/2023 2:39 PM BEATER ENGINEER HELPER): Lab Results Component Value Date HGBA1C 5.4 12/03/2023 HGBA1C 5.7 (H) 11/04/2022 HGBA1C 5.4 10/14/2017 Lab Results Component Value Date LDLCALC 158 (H) 12/03/2023 CREATININE 0.80 12/03/2023 Stable continue same regimen Assessment & Plan (12/03/2023 3:07 PM BEATER ENGINEER HELPER): Lab Results Component Value Date HGBA1C 5.7 (H) 11/04/2022 HGBA1C 5.4 10/14/2017 Lab Results Component Value Date LDLCALC 84 11/04/2022 CREATININE 0.71 11/25/2023 Stable continue same regimen Assessment & Plan (10/15/2023 3:12 PM BEATER ENGINEER HELPER): Lab Results Component Value Date HGBA1C 5.7 (H) 11/04/2022 HGBA1C 5.4 10/14/2017 Lab Results Component Value Date LDLCALC 84 11/04/2022 CREATININE 0.73 06/19/2023 Stable continue same regimen Assessment & Plan (07/16/2023 12:05 PM CDT): Lab Results Component Value Date HGBA1C 5.7 (H) 11/04/2022 HGBA1C 5.4 10/14/2017 Lab Results Component Value Date LDLCALC 84 11/04/2022 CREATININE 0.73 06/19/2023 Stable continue same regimen Interstitial cystitis 12/02/2022 Assessment & Plan (12/02/2022 4:53 PM BEATER ENGINEER HELPER): Not quite at goal - states that she knows what triggers it Mixed hyperlipidemia 08/26/2022 Assessment & Plan (12/21/2023 2:39 PM BEATER ENGINEER HELPER): Lab Results Component Value Date CHOL 245 (H) 12/03/2023 CHOL 149 11/04/2022 CHOL 207 (H) 08/26/2022 Lab Results Component Value Date HDL 61 12/03/2023 HDL 54 11/04/2022 HDL 60 08/26/2022 Lab Results Component Value Date LDLCALC 158 (H) 12/03/2023 LDLCALC 84 11/04/2022 LDLCALC 127 08/26/2022 Lab Results Component Value Date TRIG 130 12/03/2023 TRIG 54 11/04/2022 TRIG 99 08/26/2022 No results found for: POCCHDLR No results found for: POCNONHDL No results found for: POCCHLPL Elevated and worse ldl Diet and exericse discussed States she can't take statins Assessment & Plan (01/19/2023 2:54 PM CDT): Lab Results Component Value Date CHOL 149 11/04/2022 CHOL 207 (H) 08/26/2022 CHOL 165 03/03/2022 Lab Results Component Value Date HDL 54 11/04/2022 HDL 60 08/26/2022 HDL 63 03/03/2022 Lab Results Component Value Date LDLCALC 84 11/04/2022 LDLCALC 127 08/26/2022 LDLCALC 92 03/03/2022 Lab Results Component Value Date TRIG 54 11/04/2022 TRIG 99 08/26/2022 TRIG 51 03/03/2022 No results found for: POCCHDLR No results found for: POCNONHDL No results found for: POCCHLPL Chronic bilateral low back pain with left-sided sciatica 08/26/2022 Assessment & Plan (12/21/2023 2:27 PM BEATER ENGINEER HELPER): Worsening sx Was not called by pain mgmt Will place new referral Assessment & Plan (12/02/2022 4:54 PM BEATER ENGINEER HELPER): Not at goal at this time - has tried gabapentin previously with no improvement Pain in joints of both feet 10/29/2020 Nausea 09/03/2020 Fatigue 09/03/2020 Plantar fasciitis 11/10/2019 S/P total hysterectomy 07/12/2019 Mass of left breast 11/13/2017 Numbness and tingling of left upper extremity 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 GERD (gastroesophageal reflux disease) 4 Assessment & Plan (12/03/2023 3:08 PM BEATER ENGINEER HELPER): New sx Likely gerd Start omeprazole 40 mg bid x 2 weeks 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 4 or more times a week 02/22/2025 Q2: How many drinks containi ng alcohol do you have on a typical day when you are drinking? 3 or 4 Q3: How often do you have si x or more drinks on one occasion? Less than monthly 02/22/2025 PHQ-2 Answer Date Recorded PHQ-2 Total Score (If total score is 3 or more points, staff should administer the PHQ-9) 1 02/16/2024 PHQ-9 Answer Date Recorded PHQ-9 Total Score 2 02/16/2024 Personal Safety Answer Date Recorded Have you ever been in or are you currently in a harmful physical or emotional relationship or is someone making you feel afraid or unsafe? Denies 03/27/2025 Comments No Sex and Gender Information Value Date Recorded Sex Assigned at Not on file Legal Sex Female 12:33 PM BEATER ENGINEER HELPER Gender Identity Not on file Sexual Orientation Not on file Last Filed Vital Signs Vital Sign Reading Time Taken Comments Blood Pressure 113/68 03/27/2025 9:35 PM CDT Pulse 70 03/27/2025 9:30 PM CDT Temperature 36.9 C (98.5 F) 03/27/2025 6:14 PM CDT Respiratory Rate 18 03/27/2025 8:15 PM CDT Oxygen Saturation 98% 03/27/2025 9:30 PM CDT Inhaled Oxygen Concentration - - Weight 61.2 kg (135 lb) 03/27/2025 6:14 PM CDT Height 157.5 cm (5' 2) 03/27/2025 6:14 PM CDT Body Mass Index 24.69 03/27/2025 6:14 PM CDT Plan of Treatment Not on file Procedures Procedure Name Priority Date/Time Associated Diagnosis Comments URINALYSIS AND REFLEX TO MICROSCOPIC AND CULTURE Routine 03/27/2025 9:[address] ABDOMEN PELVIS W CONTRAST ED 8:29 PM CDT EGFR STAT 03/27/2025 7:28 PM CDT DIFFERENTIAL AUTO STAT 03/27/2025 7:28 PM CDT LIPASE STAT 03/27/2025 7:28 PM CDT COMPREHENSIVE METABOLIC PANEL STAT 7:28 PM CDT CBC WITH AUTO DIFFERENTIAL STAT 03/27 7:28 PM CDT POCT HCG, URINE Routine 03/27/2025 7:03 PM CDT US PELVIS W ENDOVAGINAL Schedule Routine, Read Routine (OP Routine) 03/18/2025 11:31 AM CDT Pelvic and perineal pain COLONOSCOPY 02/23/2025 11:32 AM CDT Gastroesophagea l reflux disease, unspecified whether esophagitis present Abdominal pain Case Notes PATIENT DOES NOT WANT BIOPSIES TAKEN OR HER ESOPHAGUS DILATED DURING PROCEDURE ESOPHAGOGASTRODUODENOSCOPY BIOPSY 02/23/2025 11:32 AM CDT Gastroesophagea l reflux disease, unspecified whether esophagitis present Abdominal pain Case Notes PATIENT DOES NOT WANT BIOPSIES TAKEN OR HER ESOPHAGUS DILATED DURING PROCEDURE EGD 02/23/2025 10:40 AM CDT COLONOSCOPY 02/23/2025 10:38 AM CDT SURGICAL PATHOLOGY STAT 02/23/2025 10:38 AM CDT Gastroesophagea l reflux disease, unspecified whether esophagitis present Abdominal pain SCAN - LABS 01/13/2025 CT ENTEROGRAPHY W CONTRAST Schedule Routine, Read Routine (OP Routine) 01/02/2025 4:16 PM BEATER ENGINEER HELPER Abdominal pain Abnormal finding on GI tract imaging from Last 3 Months Results * (ABNORMAL) Urinalysis reflex to microscopic and culture Urine (03/27/2025 9:12 PM CDT) Color, ur Straw Yellow Comment:[facility] [place] [address] Clarity, ur Clear Clear CERNER CH Comment:Testing performed by : [facility], [place] [address] Specific gravity, ur >1.050(A) 1.003 - 1.030 CERNER CH Comment:[facility] [address] [place] [address] pH, urine 7.0 CERNER CH Comment: Interpretive Data U rine pH is affected by diet, medications, systemic acid-base disturbances, and renal tubular function. pH may affect urinary stone formation. For example, urine pH below 6.0 may help reduce the tendency for calcium phosphate stones and pH greater than 6.0 may reduce the tendency for uric acid stone formation. Source: [facility] [employer] Current Interpretive Data was last revised on 2017 Testing [facility] [place] [address] Protein, ur ql Negative Negative CERNER CH Comment:Testing performed [facility], [place] [address] Glucose, ur ql Negative Negative CERNER CH Comment:Testing performed [facility] : [facility], [place] [address] Ketones, ur Negative Negative CERNER CH Comment:Testing performed [facility] : [facility], [place] [address] Bilirubin, ur Negative Negative CERNER CH Comment:Testing performed [facility], [place] [address] Blood, ur Negative Negative CERNER CH Comment:Testing performed [facility], [place] [address] Urobilinogen, ur <2.0 <2.0 mg/dL CERNER CH Comment:Testing performed [facility], [place] [address] Nitrite, ur Negative Negative CERNER CH Comment:Testing performed [facility], [place] [address] Leukocyte esterase, ur Negative Negative CERNER CH Comment:Testing performed [facility], [place] [address] UA reflex comment Reflex conditions for microscopic UA and culture not met. CERNER CH Comment:Testing performed by : [facility], [address], [place] [address] Urine 03/27/2025 9:12 PM CDT 03/27/2025 9:14 PM CDT Lisa Frances MD LAB MICROBIOLOGY - GENE RAL ORDERABLES Final Result [facility] [address] [place] [address] * CT Abdomen Pelvis W Contrast (03/27/2025 8:29 PM CDT) Anatomical Region Laterality Modality Body N/A Computed Tomogra phy 03/27/2025 8:23 PM CDT Impressions 03/28/2025 8:15 AM CDT NO ACUTE INTRA-ABDOMINAL FINDINGS Stat report by [facility] Electronically signed by: Mike Alvarado M.D. Narrative 03/28/2025 8:15 AM CDT EXAMINATION: CT ABDOMEN PELVIS W CONTRAST DATE: 03/27/2025 8:10 PM CLINICAL HISTORY: Abdominal pain, acute, nonlocalized TECHNIQUE: Axial CT imaging of the abdomen and pelvis performed with 75mL of Optiray 350 intravenous contrast. 2-D Reformatted images are obtained. COMPARISON: None FINDINGS: LOWER THORAX: The lung bases are clear. LIVER: Normal in appearance as visualized. BILIARY: Normal appearance of the gallbladder with no biliary ductal dilatation. as visualized. SPLEEN: Normal in appearance as visualized. PANCREAS: Normal in appearance ADRENALS: Normal in appearance KIDNEYS: Normal renal outlines. No sign of hydronephrosis. GI TRACT: There is no gastric antral mucosal and/or wall thickening. The small bowel is normal in caliber with minimal fluid retention. The colon is unremarkable. No free intraperitoneal air is present. APPENDIX: Normal in appearance ABDOMINAL WALL: Unremarkable RETROPERITONEUM/LYMPH/MESENTERIC NODES: No retroperitoneal or mesenteric lymphadenopathy identified. VESSELS: The great vessels of the abdomen are unremarkable. PELVIC ORGANS: There is a decompressed under distended urinary bladder, unable to evaluate the significance of the wall thickening. BONES: The visualized osseous structures are intact. No suspicious osteolytic or osteoblastic lesions. . Procedure Note Mike Alvarado MD - 03/28/2025 EXAMINATION: CT ABDOMEN PELVIS W CONTRAST DATE: 03/27/2025 8:10 PM CLINICAL HISTORY: Abdominal pain, acute, nonlocalized TECHNIQUE: Axial CT imaging of the abdomen and pelvis performed with 75mL of Optiray 350 intravenous contrast. 2-D Reformatted images are obtained. COMPARISON: None FINDINGS: LOWER THORAX: The lung bases are clear. LIVER: Normal in appearance as visualized. BILIARY: Normal appearance of the gallbladder with no biliary ductal dilatation. as visualized. SPLEEN: Normal in appearance as visualized. PANCREAS: Normal in appearance ADRENALS: Normal in appearance KIDNEYS: Normal renal outlines. No sign of hydronephrosis. GI TRACT: There is no gastric antral mucosal and/or wall thickening. The small bowel is normal in caliber with minimal fluid retention. The colon is unremarkable. No free intraperitoneal air is present. APPENDIX: Normal in appearance ABDOMINAL WALL: Unremarkable RETROPERITONEUM/LYMPH/MESENTERIC NODES: No retroperitoneal or mesenteric lymphadenopathy identified. VESSELS: The great vessels of the abdomen are unremarkable. PELVIC ORGANS: There is a decompressed under distended urinary bladder, unable to evaluate the significance of the wall thickening. BONES: The visualized osseous structures are intact. No suspicious osteolytic or osteoblastic lesions. . IMPRESSION: NO ACUTE INTRA-ABDOMINAL FINDINGS Stat report by [facility] Electronically signed by: Mike Alvarado M.D. Lisa Frances MD IMG CT PROCEDURES Final Result * eGFR (03/27/2025 7:28 PM CDT) eGFR >90 >=60 mL/min/1. 73 m2 Comment: Interpretive Data Reference Interval Normal >/= 90 mL/min/1.73m2 Mildly decreased* 60 - 89 mL/min/1.73m2 Mildly to moderately decreased 45 - 59 mL/min/1.73m2 Moderately to severely decreased 30 - 44 mL/min/1.73m2 Severely decreased 15 - 29 mL/min/1.73m2 Kidney Failure < 15 mL/min/1.73m2 *Relative to young adult level Estimated glomerular filtration rate is determined by the 2020 CKD-EPI equation recommended by the National Kidney Foundation (A Unifying Approach to GFR Estimation: Recommendations of the NKF-ASK Task Force on Reassessing the Inclusion of Race in Diagnosing Kidney Disease, JASN 202). The CKD-EPI equation should not be used for patients with unstable renal function and has not been validated in children and those over 70. Current interpretive data was last reviewed 2021. Testing performed by: [facility], [address] [place] [address] [place] [address] Blood 03/27/2025 7:28 PM CDT 03/27/2025 7:46 PM CDT us Cliff Grier MD LAB BLOOD ORDERABLES Fin al Result [facility] [address] [place] [address] * Differential, auto (03/27/2025 7:28 PM CDT) Neutrophil abs 2.62 1.50 - 6.50 K/cumm Comment:Testing performed by : [facility], [address] [place], [place] [address] [place] [address] Imm gran abs 0.01 0.00 - 0.10 K/cumm CERNER Comment:Testing performed by : [address] [place] [address] Lymphocyte abs 1.44 0.80 - 3.30 K/cumm CERNER Comment:Testing performed by : [address] [place] [address] Monocyte abs 0.60 0.20 - 0.80 K/cumm CERNER CH Comment:Testing performed by : [address] [place] [address] Eosinophil abs 0.01 0.00 - 0.50 K/cumm CERNER Comment:Testing performed by : [address] [place] [address] Basophil abs 0.02 0.00 - 0.10 K/cumm CERNER Comment:Testing performed by : [facility] [address] [place], [place] [address] [place] [address] Neutrophil pct 55.8 % CERNER Comment: Interpretive Data Percent cell count reference ranges are not reported, since discordance with absolute values may lead to misinterpretation of CBC data. Current Interpretive Data was last revised on 2018. Testing performed by: [facility], [address] [place] [address] Imm gran pct 0.2 % CERNER Comment: Interpretive Data Percent cell count reference ranges are not reported, since discordance with absolute values may lead to misinterpretation of CBC data. Current Interpretive Data was last revised on 2018. Testing performed by: [facility], [place] [address] Lymphocyte pct 30.6 % CERNER Comment: Interpretive Data Percent cell count reference ranges are not reported, since discordance with absolute values may lead to misinterpretation of CBC data. Current Interpretive Data was last revised on 2018. Testing performed by: [facility], [facility] [place] [address] Monocyte pct 12.8 % CERNER Comment: Interpretive Data Percent cell count reference ranges are not reported, since discordance with absolute values may lead to misinterpretation of CBC data. Current Interpretive Data was last revised on 2018. Testing performed by: [facility], [address] [place] [address] Eosinophil pct 0.2 % CERNER Comment: Interpretive Data Percent cell count reference ranges are not reported, since discordance with absolute values may lead to misinterpretation of CBC data. Current Interpretive Data was last revised on 2018. Testing performed by: [facility], [place] [address] Basophil pct 0.4 % CERNER Comment: Interpretive Data Percent cell count reference ranges are not reported, since discordance with absolute values may lead to misinterpretation of CBC data. Current Interpretive Data was last revised on 2018. Testing performed by: [facility], [facility] [place] [address] Blood 03/27/2025 7:28 PM CDT 03/27/2025 7:46 PM CDT us Cliff Grier MD LAB BLOOD ORDERABLES Fin al Result [facility] [address] [place] [address] * CBC with auto differential (03/27/2025 7:28 PM CDT) [facility] WBC 4.70 3.80 - 9.90 K/cumm Comment:Testing performed by : [facility] [place] [address] Hgb 13.0 11.9 - 15.5 g/dL CERNER CH Comment:Testing performed by : [facility] [place] [address] Hct 36.7 35.6 - 45.5 % CERNER CH Comment:Testing performed by : [facility] [place] [address] Plt 255 150 - 400 K/cumm CERNER CH Comment:Testing performed by : [facility] [place] [address] MPV 9.2 9.1 - 12.3 fL CERNER CH Comment:Testing performed by : [facility] [place] [address] RBC 3.90 3.90 - 5.20 M/cumm CERNER CH Comment:Testing performed by : [facility] [place] [address] MCV 94.1 81.3 - 96.4 fL CERNER CH Comment:Testing performed by : [facility] [place] [address] MCH 33.3 27.1 - 33.3 pg CERNER CH Comment:Testing performed by : [facility] [place] [address] MCHC 35.4 32.3 - 35.7 g/dL CERNER CH Comment:Testing performed by : [facility] [place] [address] [address] [address] RDW CV 11.6 11.1 - 14.9 % CERNER CH Comment:Testing performed by : [facility] [place] [address] RDW SD 39.7 35.7 - 48.1 fL CERNER CH Comment:Testing performed by : [facility] [place] [address] NRBC abs 0.00 0.00 - 0.01 K/cumm CERNER CH Comment:Testing performed by : [facility] [place] [address] Blood Venous blood specimen / Unknown 03/27/2025 7:28 PM CDT 03/27/2025 7:46 PM CDT Lisa Frances MD LAB BLOOD ORDERABLES Fi nal Result Performing Organization Address [facility] de Phone Number [facility] [phone] [address] [facility] [employer] [place] [address] * Lipase (03/27/2025 7:28 PM CDT) Pathologist [facility] Lipase 20 10 - 99 Units/L Comment:[facility] [place] [address] Blood Venous blood specimen / Unknown 03/27/2025 7:28 PM CDT 03/27/2025 7:46 PM CDT Lisa Frances MD LAB BLOOD ORDERABLES Fi nal Result Performing Organization Address [facility] Phone Number [facility] [phone] [address] [facility] [employer] [place] [address] * Comprehensive metabolic panel (03/27/2025 7:28 PM CDT) Pathologist [facility] Sodium 138 135 - 145 mmol/L Comment:Testing performed [facility] [address] [place] [address] Potassium, pl 4.0 3.3 - 4.9 mmol/L CERNER CH Comment:Testing performed [facility] : [facility] [address] [place] [address] Chloride 103 97 - 110 mmol/L CERNER CH Comment:Testing performed [facility] : [facility] [address] [place] [address] CO2 24 22 - 32 mmol/L CERNER CH Comment:Testing performed [facility] : [facility] [address] [place] [address] Anion gap 11 2 - 15 mmol/L CERNER CH Comment:Testing performed [facility] : [facility] [address] [place] [address] BUN 13 6 - 25 mg/dL CERNER CH Comment:Testing performed by : [facility] [address], [place] [address] Creatinine 0.77 0.60 - 1.10 mg/dL CERNER CH Comment:Testing performed [facility] : [facility] [address] [place] [address] Glucose 95 70 - 199 mg/dL CERNER CH Comment: Interpretive Data Fasting glucose >/= 126 mg/dl is diagnostic for diabetes. Fasting is defined as no caloric intake for at least 8 hours. Fasting glucose between 100 mg/dl to 125 mg/dl is diagnostic of prediabetes. In a patient with classic symptoms of hyperglycemia or hyperglycemic crisis, a random glucose >/= 200 mg/dl is diagnostic for diabetes. In the absence of unequivocal hyperglycemia, results should be confirmed by repeat testing. The classification and Diagnosis of Diabetes Diabetes Care 2021; 46: S19-S40. Current interpretive data was last revised 2022. Testing performed [facility] [address] [place] [address] Calcium 9.2 8.5 - 10.3 mg/dL CERNER CH Comment:Testing performed by : [facility] [address] [place] [address] Bilirubin, total 0.5 0.1 - 1.2 mg/dL CERNER CH Comment:Testing performed by : [facility] [address] [place] [address] Protein, pl 7.1 6.5 - 8.5 g/dL CERNER CH Comment:Testing performed by : [facility] [address] [place] [address] Albumin 4.3 3.5 - 5.0 g/dL CERNER CH Comment:Testing performed by : [facility] [address] [place] [address] Alk phos 73 40 - 130 Units/L CERNER CH Comment:Testing performed by : [facility] [address] [place] [address] ALT 23 7 - 45 Units/L CERNER CH Comment:Testing performed by : [facility] [address] [place] [address] AST 22 10 - 45 Units/L CERNER CH Comment:Testing performed by : [facility] [address] [place] [address] Blood 03/27/2025 7:28 PM CDT 03/27/2025 7:46 PM CDT us Lisa Frances MD LAB BLOOD ORDERABLES Fi nal Result [facility] [address] [place] [address] * POCT hCG, urine (03/27/2025 7:03 PM CDT) HCG, ur, POC Negative Negative Lot Number [id number] QC Backgroud Clear Acceptable QC Control Line Acceptable Urine 03/27/2025 7:03 PM CDT Lisa Frances MD POINT OF CARE TEST ORDE RABLES Final Result * US Pelvis W Endovaginal (03/18/2025 11:31 AM CDT) Anatomical Region Laterality Modality Pelvis N/A Ultrasound 03/18/2025 11:5 4 AM CDT Impressions 03/18/2025 11:54 AM CDT Uterus and ovaries not identified on the transabdominal and transvaginal images. Patient status post hysterectomy by history. Electronically signed by: Patricia Mai M.D. Narrative 03/18/2025 11:54 AM CDT ULTRASOUND PELVIS WITH ENDOVAGINAL DATE: 03/18/2025 11:00 AM INDICATION: Pain in pelvis. R 10.2. Question prior hysterectomy. COMPARISON: None available TECHNIQUE: Sonographic images through the pelvis were obtained with the transabdominal and transvaginal probe. Grayscale imaging, color Doppler imaging, and spectral waveform analysis of the ovaries were obtained. FINDINGS: Transabdominal images: Uterus and ovaries not seen. There is no free fluid. No pelvic masses identified. Images through bladder are unremarkable. Transvaginal images: Uterus and ovaries not identified. Patient status post hysterectomy by history. No pelvic masses seen. No free fluid. Procedure Note Patricia Mai MD - 03/18/2025 ULTRASOUND PELVIS WITH ENDOVAGINAL DATE: 03/18/2025 11:00 AM INDICATION: Pain in pelvis. R 10.2. Question prior hysterectomy. COMPARISON: None available TECHNIQUE: Sonographic images through the pelvis were obtained with the transabdominal and transvaginal probe. Grayscale imaging, color Doppler imaging, and spectral waveform analysis of the ovaries were obtained. FINDINGS: Transabdominal images: Uterus and ovaries not seen. There is no free fluid. No pelvic masses identified. Images through bladder are unremarkable. Transvaginal images: Uterus and ovaries not identified. Patient status post hysterectomy by history. No pelvic masses seen. No free fluid. IMPRESSION: Uterus and ovaries not identified on the transabdominal and transvaginal images. Patient status post hysterectomy by history. Electronically signed by: Patricia Mai M.D. Mack Gambino MD [facility] US PROCEDURES Adela l Result * EGD (02/23/2025 10:40 AM CDT) Anatomical Region Laterality Modality Other Narrative Procedure Note Rian Flores, - 02/23/2025 10:40 AM CDT [facility] Patient Name: Andria Magaña Procedure Date: 02/23/2025 10:40 AM Date of : 1970 Admit Type: Outpatient Age: 54 Gender: Female Attending MD: Rian Flores D.O. Room: [facility] ENDOSCOPY ROOM 3 Note Status: Finalized Patient Profile: Refer to note in patient chart for documentation of history and physical. Procedure: Upper GI endoscopy Indications: Follow-up of gastro-esophageal reflux disease Referring MD: Macario Omer Providers: Rian Flores D.O. Impression: - Normal esophagus. - Normal stomach. Biopsied. - Normal examined duodenum. - Normal examined jejunum. Recommendation: - Await pathology results. - Return to my office as previously scheduled. Medicines: Monitored Anesthesia Care Complications: No immediate complications. Estimated Blood Loss: Estimated blood loss was minimal. Procedure: Pre-Anesthesia Assessment: - As per anesthesia. The benefits, risks, and alternatives to theprocedure and sedation were discussed and informed consentwas obtained. The scope was passed under direct vision. The Endoscope GIF-H190 [id number] was introduced through the mouth, and advanced to the proximal jejunum. The upper GI endoscopy was accomplished without difficulty. The patient tolerated the procedure well. Findings: The examined esophagus was normal. The entire examined stomach was normal. Biopsies were taken with acold forceps for Helicobacter pylori testing. The examined duodenum was normal. The examined jejunum was normal. Electronically signed by Rian Flores M.D. Rian Flores D.O. 02/23/2025 12:26:52 PM Number of Addenda: 0 Note Initiated On: 02/23/2025 10:40 AM Procedure Code(s): --- Professional --- 72816, Esophagogastroduodenoscopy, flexible, transoral; with biopsy, single or multiple --- Technical --- 00717, Esophagogastroduodenoscopy, flexible, transoral; with biopsy, single or multiple Diagnosis Code(s): --- Professional --- K21.9, Gastro-esophageal reflux disease without esophagitis --- Technical --- K21.9, Gastro-esophageal reflux disease without esophagitis CPT copyright 2020 [employer]. All rights reserved. The codes documented in this report are preliminary and upon cpc coder reviewmay be revised to meet current compliance requirements. Recognized by the [place] [employer] for promoting quality in endoscopy Rian Flores DO ENDOSCOPY PROCEDURES Final Res ult * Colonoscopy (02/23/2025 10:38 AM CDT) Anatomical Region Laterality Modality Other Narrative Procedure Note Rian Flores, DO - 02/23/2025 10:38 AM CDT [facility] Patient Name: Andria Magaña Procedure Date: 02/23/2025 10:38 AM Date of : 1970 Admit Type: Outpatient Age: 54 Gender: Female Attending MD: Rian Flores D.O. Room: [facility] ENDOSCOPY ROOM 3 Note Status: Finalized Patient Profile: Refer to note in patient chart for documentation of history and physical. Procedure: Colonoscopy Indications: Last colonoscopy: June 2023, Abnormal CT of theGI tract Referring MD: Niya Bush, F.N.P. Providers: Rian Flores D.O. Impression: - The examined portion of the ileum was normal. - The entire examined colon is normal on direct and retroflexion views. - No specimens collected. Recommendation: - Discharge patient to home. - Resume previous diet. - Continue present medications. - Repeat colonoscopy in 10 years for screening purposes. - Return to GI office as previously scheduled. Hyoscamine as needed every 6 hours. Call 2 weeks for biopsy report. Medicines: Monitored Anesthesia Care Complications: No immediate complications. Estimated Blood Loss: Estimated blood loss: none. Procedure: Pre-Anesthesia Assessment: - As per anesthesia. The benefits, risks and alternatives of theprocedure and sedation were discussed and informed consentwas obtained. All questions were answered. Please referto the signed informed consent document in the medical record. The bowel preparation used was Miralax via split dose instruction. The bowel preparation usedwas bisacodyl tablets via split dose instruction. The scope was passed under direct vision. The Pediatric Colonoscope PCF-H190L [id number] was introducedthrough the anus and advanced to the 10 cm into the ileum.The colonoscopy was performed without difficulty. The patient tolerated the procedure well. The qualityof the bowel preparation was good. The terminal ileum, ileocecal valve, appendiceal orifice, and rectumwere photographed. Findings: The perianal and digital rectal examinations were normal. The terminal ileum appeared normal. The entire examined colon appeared normal on direct and retroflexion views. Electronically signed by Rian Flores M.D. Rian Flores D.O. 02/23/2025 12:31:06 PM Number of Addenda: 0 Note Initiated On: 02/23/2025 10:38 AM Procedure Code(s): --- Professional --- 61764, Colonoscopy, flexible; diagnostic, including collection of specimen(s) by brushing or washing, when performed (separateprocedure) --- Technical --- 89435, Colonoscopy, flexible; diagnostic, including collection of specimen(s) by brushing or washing, when performed (separateprocedure) Diagnosis Code(s): --- Professional --- R93.3, Abnormal findings on diagnostic imaging of other parts of digestive tract --- Technical --- R93.3, Abnormal findings on diagnostic imaging of other parts of digestive tract CPT copyright 2020 [employer]. All rights reserved. The codes documented in this report are preliminary and upon cpc coder reviewmay be revised to meet current compliance requirements. Recognized by the [place] [employer] for promoting quality in endoscopy Rian Flores DO ENDOSCOPY PROCEDURES Final Res ult * Surgical pathology (02/23/2025 10:38 AM CDT) Tissue (Gastric/Stomach biopsy) 02/23/2025 12:00 PM CDT Narrative [facility] - 02/27/2025 3:41 PM CDT EPIC results best viewed via link to PDF [facility] Department of Pathology [address] [place] [address] Note to Patients: This report may contain a detailed description of human tissue sent by a health care provider to the laboratory for pathologic evaluation. The content of this report is essential for diagnosis and may provide important critical findings. This information may be unfamiliar to patients to review without a medical professional present. It is advised that the patient review this report in the presence of a health care provider who can answer questions and explain the details. Final Report Patient Name: ANDRIA MAGAÑA Address: [address] [place] [address] , [place], [place] [address] Gender: F : 1970 (Age: 54) Service: Gastro Location: [facility] Hospital #: [id number] Patient Type: [facility] Taken: 02/23/2025 Received: 02/24/2025 Accessioned: 02/24/2025 Reported: 02/27/2025 Physician(s):Dr. Rian Flores, D.O. Diagnosis: Gastric, biopsy: - Minimal chronic inactive gastritis. - No evidence of intestinal metaplasia, dysplasia, or malignancy. - Negative Helicobacter immunostain. Sanju Sauceda MD Report Electronically Reviewed and Signed Out By Sanju Sauceda MD 02/27/2025 15:41:12 Specimen(s) Received: A: Gastric biopsies Microscopic Description: Microscopic examination shows a minimal chronic inactive gastritis. There is no evidence of intestinal metaplasia, dysplasia, or malignancy. No definitive Helicobacter organisms are identified on routine H&E staining. A Helicobacter immunostain is performed with appropriately reactive controls on block A1 and is negative. Clinical History: GERD. Abdominal pain. EGD. Colonoscopy. Gross Description: The specimen is submitted in a single formalin filled container labeled ANDRIA FOSTER and gastric biopsies. It is 4 fragments of sneed tissue, each measuring 1 mm. All in one cassette. Miki Mosley R.N., P.A./Claude Orona M.D. REPORT IMAGES AND SCANNED DOCUMENTS, IF INCLUDED, ONLY VIEWABLE IN PDF VERSION OF REPORT The performance characteristics of some immunohistochemical stains, fluorescence in-situ hybridization tests and immunophenotyping by flow cytometry cited in this report (if any) were determined by the Surgical Pathology Department at [facility] as part of an ongoing clinical quality analyst program and in compliance with federally mandated regulations drawn from the Clinical Laboratory Improvement Act of 1988 (CLIA '88). Some of these tests rely on the use of analyte specific reagents and are subject to specific labeling requirements by the US Food and Drug Administration. Such diagnostic tests may only be performed in a facility that is certified by the Department of Health and Human Services as a high complexity laboratory under CLIA '88. The FDA has determined that such clearance or approval is not necessary. This test is used for clinical purposes. It should not be regarded as investigational or for research. Nevertheless, federal rules concerning the medical use of analyte specific reagents require that the following disclaimer be attached to the report: This test was developed and its performance characteristics determined by the Surgical Pathology Department [facility]. It has not been cleared or approved by the U. S. Food and Drug Administration. Note for decalcified specimens: This assay has not been validated on decalcified tissues. Results should be interpreted with caution given the possibility of false negativity on decalcified specimens Rian Flores DO LAB PATHOLOGY ORDERABLES Final Result [facility]Y [facility] [address] [place] [address] * SCAN - Express Fit (01/13/2025) us Provider Scanning Final Result * CT Abdomen and Pelvis Enterography W Contrast (01/02/2025 4:16 PM BEATER ENGINEER HELPER) Anatomical Region Laterality Modality Abdomen N/A Computed Tomogra phy 01/03/2025 10:2 5 AM BEATER ENGINEER HELPER Impressions 01/03/2025 10:25 AM BEATER ENGINEER HELPER No evidence of inflammatory bowel disease. Electronically signed by: Florian Lopez II, D.O. Narrative 01/03/2025 10:25 AM BEATER ENGINEER HELPER EXAMINATION: CT ENTEROGRAPHY W CONTRAST DATE: 01/02/2025 2:30 PM HISTORY: Inflammatory bowel disease. COMPARISON: 10/27/2024. TECHNIQUE: Transaxial computed tomographic images of the abdomen and pelvis were obtained after the administration of 93 mL of Optiray 350 intravenously. Multiplanar coronal and sagittal images were reformatted. Enterography protocol with balloon administered orally. FINDINGS: Lung bases are unremarkable. There is diffuse hepatic steatosis. The spleen, pancreas, adrenal glands, and kidneys are unremarkable. Mild bilateral hydroureteronephrosis without obstructing nephrolithiasis. Bladder is unremarkable. Hysterectomy. Fluid in the colon consistent with recent administration of the lumen. Appendix is normal in appearance. No definitive small bowel wall thickening. No fistula. No pathologic by size criteria lymphadenopathy. Mild atherosclerotic calcifications in the aorta and branch vessels. No acute osseous abnormality. No suspicious lytic or sclerotic lesions. Mild multilevel endplate changes in the visualized spine. Procedure Note Florian Lopez II, DO - 01/03/2025 EXAMINATION: CT ENTEROGRAPHY W CONTRAST DATE: 01/02/2025 2:30 PM HISTORY: Inflammatory bowel disease. COMPARISON: 10/27/2024. TECHNIQUE: Transaxial computed tomographic images of the abdomen and pelvis were obtained after the administration of 93 mL of Optiray 350 intravenously. Multiplanar coronal and sagittal images were reformatted. Enterography protocol with balloon administered orally. FINDINGS: Lung bases are unremarkable. There is diffuse hepatic steatosis. The spleen, pancreas, adrenal glands, and kidneys are unremarkable. Mild bilateral hydroureteronephrosis without obstructing nephrolithiasis. Bladder is unremarkable. Hysterectomy. Fluid in the colon consistent with recent administration of the lumen. Appendix is normal in appearance. No definitive small bowel wall thickening. No fistula. No pathologic by size criteria lymphadenopathy. Mild atherosclerotic calcifications in the aorta and branch vessels. No acute osseous abnormality. No suspicious lytic or sclerotic lesions. Mild multilevel endplate changes in the visualized spine. IMPRESSION: No evidence of inflammatory bowel disease. Electronically signed by: Florian Lopez II, D.O. Rian Flores DO IMG CT PROCEDURES Final Result from Last 3 Months Insurance IDPA IDPA Advance Directives For more information, please contact: [phone] * Full Code (Latest Code Status on File) Date Activated Date Inactivated Comments 02/23/2025 10:31 AM 02/23/2025 5:22 PM * Full Code Date Activated Date Inactivated Comments 02/23/2025 10:31 AM 02/23/2025 10:31 AM Care Teams Wood Die Maker Relationship Specialty Start Date End Date Rachelle, Niya A., MANAGER DRILLING [address] [address] PCP - General Family Medicine 02/22/25 Nicky Woodard, PT Physical Therapist Physical Therapy 11/05/17 Kelsea Reyes, PT Physical Therapist Physical Therapy 12/03/17 Claude Alegria MD [address] [place] [address] DR [address] [facility] [place] [address] Consulting Physician Neurology 12/07/17 Teo Reyes, PT Physical Therapist Physical Therapy 02/25/23
--- OUTSIDE RECORDS SUMMARY | 2025-03-31 13:50 | XMS_ITS | Clinical Summary ---
Author Organization [facility] Address [address] [place] [address] Care Team Providers Care Mold Stamper And Repairer Name Role Phone Alie Stack ANALYTICAL TECHNICIAN-AIR MARSHAL Primary Care Provider Source Comments [facility],non-owned Affiliates and Associated Physician Practices is amultiple site organization consisting of ambulatory clinics and hospital sitesin [place], [place], [place] and [place]. This disclosure is being madepursuant to the Care Everywhere program and may not contain all information available regarding this patient. Last updated 18.[facility] Allergies Active Allergy Reactions Criticality Noted Date Comments Amoxicillin GI Discomfort 08/03/2023 Metronidazole Other High 03/30/2019 RASH WITH NAUSEA AND VOMITING Medications * Be aware that medications may not be up to date on this document. Alwaysverify current medications with the patient. albuterol HFA (PROVENTIL; VENTOLIN; PROAIR) 108 (90 Base) MCG/ACT inhaler Take 2 puffs by mouth every 4 hours as needed 08/12/2021 Active ASPIRIN 81 PO Take 81 mg by mouth once daily Active Active Problems Problem Noted Date Diagnosed Date Chest pain 04/13/2021 Hypercholesterolemia 02/08/2020 Palpitations 01/26/2020 S/P total hysterectomy 07/12/2019 Mass of left breast 11/13/2017 Numbness and tingling of both feet 10/14/2017 Depressive disorder, not elsewhere classified GERD (gastroesophageal reflux disease) 4 Family History Medical History Relation Name Comments CAD (Coronary Artery Disease) Brother 1 Other Father Heart Problems 3 Stents Cancer - Breast Maternal Aunt Other Maternal Grandmother Brain T umor Hypertension Mother Pulmonary Embolism Mother Cancer - Breast Other Pat cousin Diabetes Other Pat cousin Hypertension Other Pat cousin Cancer - Breast Paternal Grandmother Cancer - Colon Paternal Grandmother Cancer - Breast Sister 1 Ann Other Sister 2 Talita Blood Clotts on the Brain Relation Name Status Comments Brother 1 Brother 2 Alive Brother 3 Alive Brother 4 Alive Father Alive Maternal Aunt (Age 66) Maternal Grandfather Maternal Grandmother Mother Alive Other Pat cousin Paternal Grandfather Paternal Grandmother Sister 1 Ann Alive Sister 2 Talita Alive Sister 3 Alive Sister 4 Alive Sister 5 Alive Sister 6 Alive Sister 7 Alive Social History Tobacco Use Types Packs/Day Years Used Date Smoking Tobacco: Never Smokeless Tobacco: Never Alcohol Use Standard Drinks/Week Comments Yes 3 (1 standard drink = 0.6 oz pur e alcohol) 2-3x per month AUDIT-C Answer Date Recorded Frequency of Alcohol Consumption 2-3 times a wee k 07/12/2019 Average Number of Drinks Not on file 019 Frequency of Binge Drinking Not on file 07/03 Comments No Sex and Gender Information Value Date Recorded Sex Assigned at Not on file Legal Sex Female 6:27 AM TOMBSTONE SETTER Gender Identity Not on file Sexual Orientation Not on file Last Filed Vital Signs Vital Sign Reading Time Taken Comments Blood Pressure 111/67 08/04/2023 3:31 AM CDT Pulse 76 08/04/2023 3:31 AM CDT Temperature 36.7 C (98 F) 08/03/2023 6:54 PM CDT Respiratory Rate 20 08/04/2023 3:31 AM CDT Oxygen Saturation 99% 08/04/2023 3:31 AM CDT Inhaled Oxygen Concentration - - Weight 70.3 kg (155 lb) 09/07/2024 11:13 AM TOMBSTONE SETTER Height 162.6 cm (5' 4) 09/07/2024 11:13 AM TOMBSTONE SETTER Body Mass Index 26.61 09/07/2024 11:13 AM TOMBSTONE SETTER Plan of Treatment Health Maintenance Due Date Last Done Comments LEILA (AGES 45-75) - COLON CA SCREENING [address] COLONOGRAPHY - COLON CA SCREENING 1970 FIT - COLON CA SCREENING 1970 FLEX SIG - COLON CA SCREENING 1970 LIPID TESTING 1970 HIV SCREENING 1985 HEPATITIS C SCREENING 08/22/1988 DTAP/TDAP/TD VACCINES (1 - Tdap) 1989 HEPATITIS B VACCINE (1 of 3 - 19+ 3-dose series) 1989 PNEUMOCOCCAL VACCINE 50+ (1 of 1 - PCV) 2020 ZOSTER VACCINE (1 of 2) 2020 COVID-19 VACCINE (1 - season) 2024 DEPRESSION SCREENING 11/02/2024 INFLUENZA VACCINE (Season Ended) 2025 SCREENING FOR DIABETES 08/03/2026 , 06/11/2023, 04/14/2021, Additional history exists MAMMOGRAM 09/07/2026 09/07/2024, 07/04, 07/17/2022, Additional history exists COLONOSCOPY - COLON CA SCREENING 06/18/2033 06/18/2023 Colorectal Cancer Screening 06/18/2033 HIB VACCINE Aged Out No longer eligi ble based on patient's age to complete this topic HPV VACCINE Aged Out No longer eligi ble based on patient's age to complete this topic MENINGOCOCCAL (Group B) VACCINE SHARED DECISION-MAKING Aged Out No longer eligible based on patient's age to complete this topic MENINGOCOCCAL GROUPS A/C/Y/W VACCINE Aged Out No longer eligible based on patient's age to complete this topic Procedures Procedure Name Priority Date/Time Associated Diagnosis Comments MAMMO BILAT IMPLANT SCREEN W JUAN Routine 09/07/2024 11:14 AM TOMBSTONE SETTER Encounter for screening mammogram for breast cancer COMPREHENSIVE METABOLIC PANEL STAT 08/03/2023 8:01 PM CDT from Last 3 Months or Most Recently Relevant to Health Maintenance Results * MAMMO BILAT IMPLANT SCREEN W JUAN (09/07/2024 11:14 AM TOMBSTONE SETTER) Anatomical Region Laterality Modality Breast Bilateral Mammography 09/07/2024 12:5 9 PM TOMBSTONE SETTER Impressions 09/07/2024 1:01 PM TOMBSTONE SETTER IMPRESSION: There is no mammographic evidence of malignancy. OVERALL FINAL ASSESSMENT: BI-RADS Category 1: Negative. Annual screening mammography is recommended. > Interpreting Provider: Sully Bacon MD on 09/07/2024 1:01 PM Narrative 09/07/2024 1:01 PM TOMBSTONE SETTER EXAMINATION: BILATERAL DIGITAL SCREENING MAMMOGRAM AND BILATERAL BREAST TOMOSYNTHESIS HISTORY: Screening. COMPARISON: Serial examinations dating back to 2020. TECHNIQUE: BILATERAL digital breast tomosynthesis (DBT) and synthetic 2D digital mammogram images were obtained (bilateral craniocaudal and mediolateral oblique projections) including computer aided detection (CAD.) BREAST PARENCHYMAL COMPOSITION:Category C: The breasts are heterogeneously dense which may obscure small masses. MAMMOGRAM FINDINGS: Negative there are stable bilateral subpectoral saline implants. us Mack Gambino MD MAMMO ORDERABLES Final Result * (ABNORMAL) COMPREHENSIVE METABOLIC PANEL (08/03/2023 8:01 PM CDT) Glucose 119(H) 70 - 105 mg/dL 08/03/2023 9:11 PM CDT [facility] Sodium 142 136 - 145 mmol/L 08/03/2023 9:11 PM CDT [facility] Potassium 3.8 3.5 - 5.1 mmol/L 08/03/2023 9:11 PM CDT [facility] Chloride 109(H) 98 - 107 mmol/L 08/03/2023 9:11 PM CDT [facility] CO2 23 22 - 29 mmol/L 08/03/2023 9:11 PM CDT [facility] Calcium 9.3 8.4 - 10.4 mg/dL 08/03/2023 9:11 PM CDT [facility] Anion Gap 10 6 - 16 mmol/L 08/03/2023 9:11 PM CDT [facility] BUN 8 7 - 26 mg/dL 08/03/2023 9:11 PM CDT [facility] Creatinine 0.79 0.57 - 1.11 mg/dL 08/03/2023 9:11 PM CDT [facility] Alkaline Phosphatase 79 40 - 150 U/L 08/03/2023 9:11 PM CDT [facility] ALT 20 0 - 55 U/L 08/03/2023 9:11 PM CDT [facility] AST 16 5 - 34 U/L 08/03/2023 9:11 PM CDT [facility] Protein Total 7.5 6.4 - 8.3 gm/dL 08/03/2023 9:11 PM CDT [facility] Albumin 4.1 3.4 - 5.0 gm/dL 08/03/2023 9:11 PM CDT [facility] Bilirubin Total 0.5 0.2 - 1.2 mg/dL 08/03/2023 9:11 PM CDT [facility] eGFR by CKD-EPI 90 >=90 mL/min/1.7 3 m2 08/03/2023 9:11 PM CDT [facility] Blood BLOOD SPECIMEN / Unknown Venipuncture / Unknown 08/03/2023 8:01 PM CDT 08/03/2023 8:56 PM CDT Kalani Del Toro PA-C LAB - CHEMISTRY ORDERABLES Fi nal Result [facility] [id number] [id number] from Last 3 Months or Most Recently Relevant to Health Maintenance Advance Directives * Full Code (Latest Code Status on File) Date Activated Date Inactivated Comments 04/13/2021 10:27 PM 04/14/2021 11:38 AM Care Teams Mold Stamper And Repairer Relationship Specialty Start Date End Date Aile Stack, ANALYTICAL TECHNICIAN-AIR MARSHAL [address] [facility] [address] [place] [address] [phone] PCP - General 11/19/21
--- OUTSIDE RECORDS SUMMARY | 2025-03-31 13:50 | XMS_ITS | Clinical Summary ---
Author Organization [facility] Address [address] [facility], [place] [address] Phone Care Team Providers Care Curriculum Designer Name Role Phone Mario Alberto Bernstein DPM Unavailable [phone] Niya Bush APRN, FISCAL CLERK Primary Care Provider Allergies Active Allergy Reactions Criticality Noted Date Comments Metronidazole Other (see Comments) High 03/30/2019 RASH WITH NAUSEA AND VOMITING RASH WITH NAUSEA AND VOMITING Penicillins Other (see Comments),Vomiting,Hives ,Nausea High 08/03/2023 Medications acetaminophen (TYLENOL) 325 MG Tablet Take 325 mg by mouth every 4 hours as needed. Active omeprazole (PRILOSEC) 40 MG CAPSULE DELAYED RELEASE Take 40 mg by mouth daily. 9 Active raNITIdine (ZANTAC) 300 MG Tablet Take 1 Tab by mouth nightly. 30 Tab 3 9 Active Additional Information Patient not taking.Reported on 08/29/2019 ASPIRIN POIndications:pow paris Take by mouth. Indications: powder Active VITAMIN E PO Take 1 Tab by mouth daily. Active Calcium Polycarbophil (FIBER-CAPS PO) Take 1 Cap by mouth daily. Active Probiotic Product (PROBIOTIC DAILY PO) Take 1 Tab by mouth daily. Active ALBUTEROL SULFATE HFA IN take by inhalation. Active BISACODYL PO Take by mouth. Ac tive sucralfate (CARAFATE) 1 GM Tablet Take 1 g by mouth every 6 hours. Active traMADol (ULTRAM) 50 MG TabletIndications :Injury of jaw Take 1 Tablet by mouth every 6 hours as needed for Moderate or more severe pain. 15 Tablet 4 Active ondansetron (ZOFRAN-ODT) 4 MG TABLET DISPERSIBLE Take 1 Tablet by mouth every 8 hours as needed for Nausea - 1st line. 10 Tablet 4 Active dicyclomine (BENTYL) 20 MG Tablet Take 1 Tablet by mouth every 6 hours. 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 Heart Disease Father Hypertension Father Chronic Lung Disease Mother Congestive Heart Failure Mother Hypertension Mother Colon Cancer Paternal Grandmother Breast Cancer Sister Relation Name Status Comments Brother 1 Brother 2 Father Alive Mother Paternal Grandmother Sister Alive Social History Tobacco Use Types Packs/Day Years Used Date Smoking Tobacco: Never Smokeless Tobacco: Never Tobacco Cessation:Counseling Given: Not Answered Alcohol Use Standard Drinks/Week Comments Not Currently 0 (1 standard drink = 0.6 oz pure alcohol) use to drink 5 heavy drinks per day still drinks wine ONCE OR TWICE A MONTH PHQ-2 Answer Date Recorded PHQ-2 Score 0 07/11/2019 Sexually Active Control Partners Comments Not Currently Comments No Sex and Gender Information Value Date Recorded Sex Assigned at Not on file Legal Sex Female 9:15 PM CDT Gender Identity Not on file Sexual Orientation Not on file Last Filed Vital Signs Vital Sign Reading Time Taken Comments Blood Pressure 110/64 10/31/2024 4:30 PM MACHINE CRATER Pulse 65 10/31/2024 4:30 PM MACHINE CRATER Temperature 37 C (98.6 F) 10/31/2024 4:30 PM MACHINE CRATER Respiratory Rate 16 10/31/2024 4:30 PM MACHINE CRATER Oxygen Saturation 100% 10/31/2024 4:30 PM MACHINE CRATER Inhaled Oxygen Concentration - - Weight 63 kg (139 lb) 10/31/2024 12:03 PM MACHINE CRATER Height 157.5 cm (5' 2) 10/31/2024 12:03 PM MACHINE CRATER Body Mass Index 25.42 10/31/2024 12:03 PM MACHINE CRATER Plan of Treatment Health Maintenance Due Date Last Done Comments Hepatitis C Virus (HCV) Screening 1970 TdaP Immunization 1970 Hepatitis B Immunization (1 of 3 - 19+ 3-dose series) 1989 Cologuard 2020 Immunochemical Fecal Occult Blood 2020 Pneumococcal Immunization (50+ years) (1 of 1 - PCV) 2020 Zoster Immunization (1 of 2) 2020 Influenza Immunization (#1) 2024 SARS-COV-2 Immunization (1 - 2023- season) 2024 Mammogram 09/07/2025 09/07/2024, 04/2024, 07/29/2023, Additional history exists Colonoscopy 06/18/2028 06/18/2023, 10/04, 04/06/2019 Colorectal Cancer Screening 06/18/2028 Respiratory Syncytial Virus (RSV) Immunization (Adult) (1 - 1-dose 75+ series) 2045 06/18/2023, 10/04, 04/06/2019 Discussion re Starting/Frequency of Mammograms Discontinued 09/07/2024, 07/29/2023, 07/17/2022, Additional history exists Meningococcal Immunization (ACWY) Aged Out No longer eligible based on patient's age to complete this topic Rotavirus Immunization Aged Out No lo nger eligible based on patient's age to complete this topic Insurance [place]ID [place] Member Subscriber Plan / Payer (Ef fective 2024-Present) Name:Andria Magaña Relation to Subscriber:Self Name:Andria Magaña Payer ID:[id number] Group ID:Not on file Type:Not on file Address: [address] Care Teams Curriculum Designer Relationship Specialty Start Date End Date Niya Bush APRN, FISCAL CLERK [address] [place] [address] PCP - General Advanced Practice Nurse 10/31/24 Mario Alberto Bernstein DPM Consulting Physician Podiatry 07/14/17
--- OUTSIDE RECORDS SUMMARY | 2025-03-31 13:50 | XMS_ITS | Clinical Summary ---
Author Organization [facility] Address [address] [place] [address] Care Team Providers Care Nuclear Operator Name Role Phone Unavailable Primary Care Provider Unavailabl e Allergies Active Allergy Reactions Criticality Noted Date Comments Amoxicillin Dizziness,Nausea and Vomiting Low 08/03/2023 Metronidazole Other (See Comments),Rash High 03/30/2019 RASH WITH NAUSEA AND VOMITING RASH WITH NAUSEA AND VOMITING RASH WITH NAUSEA AND VOMITING Penicillins Hives High 04/11/2024 Medications ibuprofen (MOTRIN) 600 mg tablet TAKE 1 TABLET BY MOUTH EVERY 6 HOURS NEEDED FOR MILD PAIN 60 Tablet 1 08/21/2015 Active Active Problems Problem Noted Date Diagnosed Date GERD (gastroesophageal reflux disease) 4 Depressive disorder, not elsewhere classified 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 Encounters Date Type Department Care Team Description 03/23/2025 External Device Data [facility]CTION Provider, Abstract 03/22/2025 External Device Data [facility] Provider, Abstract 03/21/2025 External Device Data [facility] Provider, Abstract 03/07/2025 External Device Data [facility] Provider, Abstract 01/18/2025 External Device Data [facility] Provider, Abstract 01/10/2025 External Device Data [facility] Provider, Abstract 01/10/2025 External Device Data [facility] Provider, Abstract 01/07/2025 External Device Data [facility]CTION Provider, Abstract 01/06/2025 External Device Data [facility] ABSTRACTION Provider, Abstract 01/03/2025 External Device Data [facility] ABSTRACTION Provider, Abstract from Last 3 Months Family History Medical History Relation Name Comments Respiratory Disease Mother Relation Name Status Comments Father Alive Mother Alive Social History Tobacco Use Types Packs/Day Years Used Date Smoking Tobacco: Never Passive Smoke Exposure: Never Smokeless Tobacco: Never Tobacco Cessation:Counseling Given: Not Answered Alcohol Use Standard Drinks/Week Comments No 0 (1 standard drink = 0.6 oz pur e alcohol) Comments No Sex and Gender Information Value Date Recorded Sex Assigned at Not on file Legal Sex Female 4:15 AM LAMBSKIN TRIMMER Gender Identity Not on file Sexual Orientation Not on file Occupation Industry Job Start Date Job End Date Not on file Not on file Not on file Not on file Not on file Not on file Not on file Not on file Last Filed Vital Signs Vital Sign Reading Time Taken Comments Blood Pressure 101/63 10/07/2024 5:12 PM LAMBSKIN TRIMMER Pulse 76 10/07/2024 5:12 PM LAMBSKIN TRIMMER Temperature 36.6 C (97.9 F) 10/07/2024 5:12 PM LAMBSKIN TRIMMER Respiratory Rate 16 04/11/2024 12:31 PM CDT Oxygen Saturation 99% 10/07/2024 5:12 PM LAMBSKIN TRIMMER Inhaled Oxygen Concentration - - Weight 63.5 kg (140 lb) 10/07/2024 5:12 PM LAMBSKIN TRIMMER Height 157.5 cm (5' 2) 10/07/2024 5:12 PM LAMBSKIN TRIMMER Body Mass Index 25.61 10/07/2024 5:12 PM LAMBSKIN TRIMMER Plan of Treatment Health Maintenance Due Date Last Done Comments Pre-Diabetes and Diabetes Screening 1970 DTAP/TDAP/TD VACCINES (1 - Tdap) 1989 HEPATITIS B VACCINES (1 of 3 - 19+ 3-dose series) 1989 FIT-DNA Q 3 years 2015 FIT/FOBT Q 1 year 2015 Flex Sig/CT Colonography Q 5 years 2015 ZOSTER VACCINE (1 of 2) 2020 INFLUENZA VACCINE (#1) 2024 BREAST CANCER SCREENING 09/07/2025 09/07/20 24, 09/07/2024, 07/29/2023, Additional history exists COLORECTAL SCREENING 06/18/2033 06/18/2023, 06/18/2023, 11/01/2022 Colorectal Cancer Screening 06/18/2033 Insurance [facility] [id number] * Guarantor: [facility] (OM) Account Type Relation to Patient Date of Phone Billing Address Corporate Other [address] [address]
--- OUTSIDE RECORDS SUMMARY | 2025-03-31 13:50 | XMS_ITS | Encounter Summary ---
Author Organization [facility] Address [address] [place] [address] Care Team Providers Care Shearing Machine Operator Name Role Phone Alie Stack RETAIL GIFT CARD MERCHANDISING-HOUSE NURSE Primary Care Provider Reason for Visit * Reason Onset Date Comments Bladder Problem 10/18/2019 Encounter Details Date Type Department Care Team (Late st Contact Info) Description 10/18/2019 Telephone [facility] - PACKAGE LIFT OPERATOR [address] [address] Diana Hartman MD [facility] [address] Bladder Problem Social History Tobacco Use Types Packs/Day Years Used Date Smoking Tobacco: Never Smokeless Tobacco: Never Alcohol Use Standard Drinks/Week Comments Yes 2.5 (1 standard drink = 0.6 oz p ure alcohol) AUDIT-C Answer Date Recorded Frequency of Alcohol Consumption 2-3 times a wee k 07/12/2019 Average Number of Drinks Not on file 019 Frequency of Binge Drinking Not on file 07/03 Comments No Sex and Gender Information Value Date Recorded Sex Assigned at Not on file Legal Sex Female 6:27 AM KENO WRITER/RUNNER Gender Identity Not on file Sexual Orientation [...] Yudith Sylvester RN documented in this encounter Miscellaneous Notes * Telephone Encounter - Yung Mondragon RN - 10/18/2019 11:36 AM CST Referred by Dr. Green who believes her pain is r/t to her bladder per Ms. Magaña. Pt reports sharp pelvic pains and constant urination. Offered her a new pt appt today at 100 ( r/t cancellation). Agrees to be here early to complete new pt paperwork. Jeffry'michell w/ Dr Hartman. WRITER/RUNNER * Telephone Encounter - Terra Worrell - 10/18/2019 11:03 AM CST Pt calling to speak to the nurse regarding bladder pain WRITER/RUNNER documented in this encounter Plan of Treatment Not on file documented as of this encounter Visit Diagnoses Not on filedocumented in this encounter Additional Health Concerns Infection Onset Date Last Indicated Resolved Time COVID-19 Under Investigation 05/15/2020 05/15/2020 05/16/2020 2:18 PM CDT COVID-19 Under Investigation 08/03/2023 08/03/2023 08/04/2023 2:45 AM CDT documented as of this encounter Care Teams Shearing Machine Operator Relationship Specialty Start Date End Date Alie Stack, RETAIL GIFT CARD MERCHANDISING-HOUSE NURSE [address] [facility] [address] [place] [phone] PCP - General 11/19/21 documented as of this encounter
--- OUTSIDE RECORDS SUMMARY | 2025-03-31 13:50 | XMS_ITS | Clinical Summary ---
Author Organization [facility] Address [address] [place] [address] Care Team Providers Care Vehicle Trimmer Name Role Phone Nicky Woodard PT Unavailable Unavailable Kelsea Reyes PT Unavailable Unavailable Claude Alegria MD Unavailable [phone] Teo Reyes PT Unavailable Unavailable Niya Bush NP Primary Care Provider + [phone] Allergies Active Allergy Reactions Criticality Noted Date [...] 2000 IU daily - Start vitamin D 53161 IU weekly Bilateral carotid artery stenosis 06/22/2023 Neurological symptoms 06/22/2023 Encounter for screening for malignant neoplasm o f colon 04/24/2023 Abdominal pain 04/24/2023 Pharyngoesophageal dysphagia 02/24/2023 Prediabetes 01/19/2023 Overview (01/19/2023): at goal and unlikely to be contributing Assessment & Plan (12/21/2023 2:39 PM LIDAR SCIENTIST): Lab Results Component Value Date HGBA1C 5.4 12/03/2023 HGBA1C 5.7 (H) 11/04/2022 HGBA1C 5.4 10/14/2017 Lab Results Component Value Date LDLCALC 158 (H) 12/03/2023 CREATININE 0.80 12/03/2023 Stable continue same regimen Assessment & Plan (12/03/2023 3:07 PM LIDAR SCIENTIST): Lab Results Component Value Date HGBA1C 5.7 (H) 11/04/2022 HGBA1C 5.4 10/14/2017 Lab Results Component Value Date LDLCALC 84 11/04/2022 CREATININE 0.71 11/25/2023 Stable continue same regimen Assessment & Plan (10/15/2023 3:12 PM LIDAR SCIENTIST): Lab Results Component Value Date HGBA1C 5.7 [...] 12/02/2022 Assessment & Plan (12/02/2022 4:53 PM LIDAR SCIENTIST): Not quite at goal - states that she knows what triggers it Mixed hyperlipidemia 08/26/2022 Assessment & Plan (12/21/2023 2:39 PM LIDAR SCIENTIST): Lab Results Component Value Date CHOL 245 [...] 08/26/2022 Assessment & Plan (12/21/2023 2:27 PM LIDAR SCIENTIST): Worsening sx Was not called by pain mgmt Will place new referral Assessment & Plan (12/02/2022 4:54 PM LIDAR SCIENTIST): Not at goal at this time - has tried gabapentin previously with no improvement Pain in joints of both feet 10/29/2020 Nausea 09/03/2020 Fatigue 09/03/2020 Plantar fasciitis 11/10/2019 S/P total hysterectomy 07/12/2019 Mass of left breast 11/13/2017 Numbness and tingling of left upper extremity 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 GERD (gastroesophageal reflux disease) 4 Assessment & Plan (12/03/2023 3:08 PM LIDAR SCIENTIST): New sx Likely gerd Start omeprazole 40 mg bid x 2 weeks 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 Encounters Date Type Department Care Team Description 03/27/20 6:40 PM CDT - 03/27/20 9:56 PM CDT Emergency [facility] Emergency Department [address] [place] [address] Lisa Frances MD Abdominal pain, generalized (Primary Dx); Enteritis Discharge Disposition: Discharge to home or self care 03/18/20 10:44 AM CDT - 03/18/20 11:59 PM CDT Hospital Encounter [facility] [address] [place] [address] Pelvic and perineal pain Discharge Disposition: Discharge to home or self care 02/29/20 Results Follow-Up [facility] Gastroenterology at [address] [place] [address] Rian Flores DO Surgical pathology 02/24/20 11:40 AM CDT - 02/24/20 12:20 PM CDT Surgery [facility] [address] [place] [address] Klucka, Rian T., DO ESOPHAGOGASTRODUODENOSCOPY BIOPSY 02/24/20 11:37 AM CDT Anesthesia Event [facility] [address] [place] [address] Mariangel Voss MD Zirkelbach, Cecilia A., LATOYA 02/24/20 10:29 AM CDT - 02/24/20 1:17 PM CDT Hospital Encounter [facility] [address] [place] [address] Rian Flores, Gastroesophageal reflux disease, unspecified whether esophagitis present; Abdominal pain Discharge Disposition: Discharge to home or self care 02/22/20 Telephone [facility] Gastroenterology at [address] [place] [address] Suzy Herrera 02/11/20 Telephone [facility] Gastroenterology at [address] [place] [address] Suzy Herrera 01/04/20 Telephone [facility] Gastroenterology at [address] [place] [address] Lindsay Campoverde LPN 01/04/20 Telephone [facility] Gastroenterology at [address] [place] [address] Lindsay Campoverde LPN 01/04/20 Results Follow-Up [facility] Gastroenterology at [address] [place] [address] Rian Flores, DO CT Abdomen and Pelvis Enterography W Contrast 01/03/20 2:02 PM LIDAR SCIENTIST - 01/03/20 11:59 PM LIDAR SCIENTIST Hospital Encounter [facility] [address] [place] [address] Abdominal pain; Abnormal finding on GI tract imaging Discharge Disposition: Discharge to home or self care from Last 3 Months Immunizations Immunization Administration Dates Next Due Influenza, Unspecified 07/16/2023(Deferr ed: Patient Refused),06/02/2023(Deferred: Patient Refused),08/26/2022(Deferred: Patient Refused),01/01/2022(Deferred: Patient Refused) Surgical History Surgery Date Site/Laterality Comments TUBAL LIGATION COLONOSCOPY last 2016 TONSILLECTOMY BREAST SURGERY implants HYSTERECTOMY 11/02/2018 - 11/01/2019 BREAST BIOPSY 11/02/2016 - 11/01/2017 Right ESOPHAGOGASTRODUODENOSCOPY COLONOSCOPY 06/02/2023 - 07/02/2023 COLONOSCOPY 02/23/2025 UPPER GASTROINTESTINAL ENDOSCOPY 02/23/2025 Medical History Medical History Date Comments GERD (gastroesophageal reflux disease) Vitamin D deficiency HLD (hyperlipidemia) MATTEO (obstructive sleep apnea) Neuropathy Carotid artery stenosis Interstitial cystitis Esophageal stricture Erosive esophagitis Lactose intolerance Metabolic dysfunction-associated steatotic liver disease (MASLD) HLD (hyperlipidemia) Family History Medical History Relation Name Comments Heart disease Brother Hyperlipidemia Brother Hypertension Brother Thyroid disease Brother Crohn's disease Father Heart disease Father Hyperlipidemia Father Hypertension Father Stroke Father Thyroid disease Father Heart disease Mother Hyperlipidemia Mother Hypertension Mother Migraines Mother Stroke Mother Thyroid disease Mother Breast cancer Sister Cancer Sister Crohn's disease Sister Hyperlipidemia Sister Hypertension Sister Migraines Sister Stroke Sister Relation Name Status Comments Brother Father Mother Sister Social History Tobacco Use Types Packs/Day Years [...] on file Legal Sex Female 12:33 PM LIDAR SCIENTIST Gender Identity Not on file Sexual Orientation Not on file Obstetrics History Last Filed Vital Signs Vital Sign Reading [...] 03/27/2025 6:14 PM CDT Plan of Treatment Health Maintenance Due Date Last Done Comments Hepatitis C Screening 1970 DTaP/Tdap/Td Vaccine (1 - Tdap) 1981 Hepatitis B Screening 1988 Regular Well Visit/Exam 18-64 1988 Zoster Vaccine (1 of 2) 2020 Depression Screening 02/15/2025 02/16/2024, 02/16/2024, 01/13/2024, Additional history exists Influenza Vaccine (Season Ended) 2025 Breast Cancer Screening-Mammogram 09/07/2025 09/07/2024, 09/07/2024, 07/29/2023, Additional history exists Colon Cancer Screening-Colonoscopy 02/23/2035 02/23/2025, 06/18/2023 Pneumococcal vaccine <65 Aged Out No longer eligible based on [...] Read Routine (OP Routine) 01/02/2025 4:16 PM LIDAR SCIENTIST Abdominal pain Abnormal finding on GI tract imaging from Last 3 Months Results * (ABNORMAL) Urinalysis reflex to microscopic and culture Urine (03/27/2025 9:12 PM CDT) Color, ur Straw Yellow Comment:Testing performed by : [facility], [place] [address] Clarity, ur Clear Clear CERNER Comment:Testing performed by : [facility], [place] [address] Specific gravity, ur >1.050(A) 1.003 - 1.030 CERNER CH Comment:Testing performed by : [facility], [address] [place] [address] pH, urine 7.0 CERNER Comment: Interpretive Data U rine pH is affected by diet, medications, systemic acid-base disturbances, and renal tubular function. pH may affect urinary stone formation. For example, urine pH below 6.0 may help reduce the tendency for calcium phosphate stones and pH greater than 6.0 may reduce the tendency for uric acid stone formation. Source: [facility] Current Interpretive Data was last revised on 2017 Testing performed by: [facility], [place] [address] Protein, ur ql Negative Negative CERNER CH Comment:Testing performed by : [facility], [place] [address] Glucose, ur ql Negative Negative CERNER CH Comment:Testing performed by : [facility], [place] [address] Ketones, ur Negative Negative CERNER CH Comment:Testing performed by : [address], [place] [address] Bilirubin, ur Negative Negative CERNER CH Comment:Testing performed by : [facility], [place] [address] Blood, ur Negative Negative CERNER CH Comment:Testing performed by : [facility], [address] [place] [address] Urobilinogen, ur <2.0 <2.0 mg/dL CERNER CH Comment:Testing performed by : [facility] [address] [address] Nitrite, ur Negative Negative CERNER CH Comment:Testing performed by : [facility] [address], [place] [address] Leukocyte esterase, ur Negative Negative CERNER CH Comment:Testing performed by : [facility] [address] [place] [address] UA reflex comment Reflex conditions for microscopic UA and culture not met. CERNER CH Comment:Testing performed by : [facility] [address], [place] [address] Urine 03/27/2025 9:12 PM CDT 03/27/2025 9:14 PM CDT Lisa Frances MD LAB MICROBIOLOGY - GENE [facility] ORDERABLES Final Result [facility] [address] [facility] Department [place] [address] * CT Abdomen Pelvis W Contrast (03/27/2025 8:29 PM CDT) Anatomical Region Laterality Modality Body N/A Computed Tomogra phy 03/27/2025 8:23 PM CDT Impressions 03/28/2025 8:15 AM CDT NO ACUTE INTRA-ABDOMINAL FINDINGS Stat report by [facility] Electronically signed by: Mike Alvarado [...] NO ACUTE INTRA-ABDOMINAL FINDINGS Stat report by [facility] Electronically signed by: Mike Alvarado M.D. Lisa Frances MD IM CT PROCEDURES Final Result * eGFR (03/27/2025 [...] of Race in Diagnosing Kidney Disease, JASN 2020). The CKD-EPI equation should not be used for patients with unstable renal function and has not been validated in children and those over 70. Current interpretive data was last reviewed 2021. Testing performed by: [facility], [address], [place] [address] Blood 03/27/2025 7:28 PM CDT 03/27/2025 7:46 PM CDT Cliff Grier MD LAB BLOOD ORDERABLES Fin al Result [facility] [address] [address] Department [place] [address] * Differential, auto (03/27/2025 7:28 PM CDT) Neutrophil abs 2.62 1.50 - 6.50 K/cumm Comment:Testing performed by : [facility] [place] [address] Imm gran abs 0.01 0.00 - 0.10 K/cumm CERNER Comment:Testing performed by : [facility] [place] [address] Lymphocyte abs 1.44 0.80 - 3.30 K/cumm CERNER Comment:Testing performed by : [facility] [place] [address] Monocyte abs 0.60 0.20 - 0.80 K/cumm CERNER Comment:Testing performed by : [facility] [place] [address] Eosinophil abs 0.01 0.00 - 0.50 K/cumm CERNER Comment:Testing performed by : [facility] [place] [address] Basophil abs 0.02 0.00 - 0.10 K/cumm CERNER Comment:Testing performed by : [facility] [place] [address] Neutrophil pct 55.8 % CERNER Comment: Interpretive Data Percent cell count reference ranges are not reported, since discordance with absolute values may lead to misinterpretation of CBC data. Current Interpretive Data was last revised on 2018. Testing performed by: [facility] [place] [address] Imm gran pct 0.2 % CERNER Comment: Interpretive Data Percent cell count reference ranges are not reported, since discordance with absolute values may lead to misinterpretation of CBC data. Current Interpretive Data was last revised on 2018. Testing performed by: [facility] [address], [place] [address] Lymphocyte pct 30.6 % [facility] Comment: Interpretive Data Percent cell count reference ranges are not reported, since discordance with absolute values may lead to misinterpretation of CBC data. Current Interpretive Data was last revised on 2018. Testing performed by: [address], [place] [address] Monocyte pct 12.8 % [facility] Comment: Interpretive Data Percent cell count reference ranges are not reported, since discordance with absolute values may lead to misinterpretation of CBC data. Current Interpretive Data was last revised on 2018. Testing performed by: [facility] [address], [place] [address] Eosinophil pct 0.2 % [facility] Comment: Interpretive Data Percent cell count reference ranges are not reported, since discordance with absolute values may lead to misinterpretation of CBC data. Current Interpretive Data was last revised on 2018. Testing performed by: [address], [place] [address] Basophil pct 0.4 % [facility] Comment: Interpretive Data Percent cell count reference ranges are not reported, since discordance with absolute values may lead to misinterpretation of CBC data. Current Interpretive Data was last revised on 2018. Testing performed by: [facility] [address], [place] [address] Blood 03/27/2025 7:28 PM CDT 03/27/2025 7:46 PM CDT Cliff Grier MD LAB BLOOD ORDERABLES Fin al Result [facility] [address] [address] Department [place] [address] * CBC with auto differential (03/27/2025 7:28 PM CDT) WBC 4.70 3.80 - 9.90 K/cumm Comment:Testing performed by : [facility] [address], [place] [address] Hgb 13.0 11.9 - 15.5 g/dL ROSM[facility] Comment:[facility] : [facility] [address] Hct 36.7 35.6 - 45.5 % CERNER CH Comment:Testing performed by : [facility], [address] [place] [address] Plt 255 150 - 400 K/cumm CERNER CH Comment:Testing performed by : [facility] [address] [place] [address] MPV 9.2 9.1 - 12.3 fL CERNER CH Comment:Testing performed by : [facility], [facility] [place] [address] RBC 3.90 3.90 - 5.20 M/cumm CERNER CH Comment:Testing performed by : [place] [address] [place] [address] MCV 94.1 81.3 - 96.4 fL CERNER CH Comment:Testing performed by : [facility] [address] [place], [place] [address] MCH 33.3 27.1 - 33.3 pg CERNER CH Comment:Testing performed by : [facility] [place] [address] MCHC 35.4 32.3 - 35.7 g/dL CERNER CH Comment:Testing performed by : [address] [address] [place] [address] RDW CV 11.6 11.1 - 14.9 % CERNER CH Comment:Testing performed by : [facility] [place] [address] RDW SD 39.7 35.7 - 48.1 fL CERNER CH Comment:Testing performed by : [address] [address] [place] [address] NRBC abs 0.00 0.00 - 0.01 K/cumm CERNER CH Comment:Testing performed by : [facility] [place] [address] Blood Venous blood specimen / Unknown 03/27/2025 7:28 PM CDT 03/27/2025 7:46 PM CDT Lisa Frances MD LAB BLOOD ORDERABLES Fi nal Result [facility] [address] [address] Department [place] [address] * Lipase (03/27/2025 7:28 PM CDT) Lipase 20 10 - 99 Units/L Comment:Testing performed by : [facility] [address], [place] [address] Blood Venous blood specimen / Unknown 03/27/2025 7:28 PM CDT 03/27/2025 7:46 PM CDT Lisa Frances MD LAB BLOOD ORDERABLES Fi nal Result [facility] [address] [address] Department [place] [address] * Comprehensive metabolic panel (03/27/2025 7:28 PM CDT) Pathologist [facility] Sodium 138 135 - 145 mmol/L Comment:Testing performed by : [facility] [address], [place] [address] Potassium, pl 4.0 3.3 - 4.9 mmol/L CERNER CH Comment:Testing performed by : [facility] [address], [place] [address] Chloride 103 97 - 110 mmol/L CERNER Comment:Testing performed by : [address], [place] [address] CO2 24 22 - 32 mmol/L CERNER CH Comment:Testing performed by : [address], [place] [address] Anion gap 11 2 - 15 mmol/L CERNER Comment:Testing performed by : [facility] [address], [place] [address] BUN 13 6 - 25 mg/dL CERNER CH Comment:Testing performed by : [facility] [address], [place] [address] Creatinine 0.77 0.60 - 1.10 mg/dL CERNER CH Comment:Testing performed by : [facility] [address], [place] [address] Glucose 95 70 - 199 mg/dL CERNER [...] was last revised 2022. Testing performed by: [facility] [address], [place] [address] Calcium 9.2 8.5 - 10.3 mg/dL CERNER CH Comment:Testing performed by : [facility] [address], [place] [address] Bilirubin, total 0.5 0.1 - 1.2 mg/dL CERNER CH Comment:Testing performed by : [facility] [address], [place] [address] Protein, pl 7.1 6.5 - 8.5 g/dL CERNER CH Comment:Testing performed by : [facility] [address], [place] [address] Albumin 4.3 3.5 - 5.0 g/dL CERNER CH Comment:Testing performed by : [facility] [address], [place] [address] Alk phos 73 40 - 130 Units/L CERNER CH Comment:Testing performed by : [facility] [address], [place] [address] ALT 23 7 - 45 Units/L CERNER CH Comment:Testing performed by : [facility] [address], [place] [address] AST 22 10 - 45 Units/L CERNER CH Comment:Testing performed by : [facility] [place] [address] Blood 03/27/2025 7:28 PM CDT 03/27/2025 7:46 PM CDT Lisa Frances MD LAB BLOOD ORDERABLES Fi nal Result [facility] [address] [address] Department [place] [address] * POCT hCG, urine (03/27/2025 7:03 PM CDT) HCG, ur, POC Negative Negative Lot Number [id number] QC Backgroud Clear Acceptable QC Control Line Acceptable Urine 03/27/2025 7:03 PM CDT Lisa Frances MD POINT OF CARE TEST ORDE RABELEONORA Final Result * US Pelvis W Endovaginal [...] by: Patricia Mai M.D. Mack Gambino MD [facility] PROCEDURES Adela l Result * EGD (02/23/2025 10:40 AM CDT) Anatomical Region Laterality Modality Other Narrative Procedure Note Rian Flores, - 02/23/2025 10:40 AM CDT [facility] [[email or web address] Patient Name: Andria Magaña Procedure Date: 02/23/2025 10:40 AM Date of : 1970 Admit Type: Outpatient Age: 54 Gender: Female Attending MD: Rian Flores D.O. Room: [facility] ENDOSCOPY ROOM 3 Note Status: Finalized Patient Profile: Refer to note in patient chart for documentation of history and physical. Procedure: Upper GI endoscopy Indications: Follow-up of gastro-esophageal reflux disease Referring MD: Niya Bush F.N.PLogan Providers: Rian Flores D.O. Impression: - Normal [...] passed under direct vision. The Endoscope [id number]-[id number] was introduced through the mouth, and advanced [...] 10:40 AM Procedure Code(s): --- Professional --- 50791, Esophagogastroduodenoscopy, flexible, transoral; with biopsy, single or multiple --- Technical --- 67143, Esophagogastroduodenoscopy, flexible, transoral; with biopsy, single or multiple Diagnosis Code(s): --- Professional --- K21.9, Gastro-esophageal reflux disease without esophagitis --- Technical --- K21.9, Gastro-esophageal reflux disease without esophagitis CPT copyright 2020 [employer]. All rights reserved. The codes documented in this report are preliminary and upon road machine operator reviewmay be revised to meet current compliance requirements. Recognized by the [employer] for promoting quality in endoscopy us Rian Flores DO ENDOSCOPY PROCEDURES Final Res ult * Colonoscopy (02/23/2025 10:38 AM CDT) Anatomical Region Laterality Modality Other Narrative Procedure Note Rian Flores DO - 02/23/2025 10:38 AM CDT [facility] Patient Name: Andria Magaña Procedure Date: 02/23/2025 10:38 AM Date of : 1970 Admit Type: Outpatient Age: 54 Gender: Female Attending MD: Rian Flores D.O. Room: [facility] ENDOSCOPY ROOM 3 Note Status: Finalized Patient [...] under direct vision. The Pediatric Colonoscope [id number]-[id number] [id number] was introducedthrough the anus and advanced to [...] 10:38 AM Procedure Code(s): --- Professional --- 62629, Colonoscopy, flexible; diagnostic, including collection of specimen(s) by brushing or washing, when performed (separateprocedure) --- Technical --- 19175, Colonoscopy, flexible; diagnostic, including collection of specimen(s) by brushing or washing, when performed (separateprocedure) Diagnosis Code(s): --- Professional --- R93.3, Abnormal findings on diagnostic imaging of other parts of digestive tract --- Technical --- R93.3, Abnormal findings on diagnostic imaging of other parts of digestive tract CPT copyright 2020 [employer]. All rights reserved. The codes documented in this report are preliminary and upon road machine operator reviewmay be revised to meet current compliance requirements. Recognized by the [employer] for promoting quality in endoscopy Rian Flores DO ENDOSCOPY PROCEDURES Final Res ult * Surgical pathology (02/23/2025 10:38 AM CDT) Tissue (Gastric/Stomach biopsy) 02/23/2025 12:00 PM CDT Narrative PATHOLOGY [facility] - 02/27/2025 3:41 PM CDT EPIC results best viewed via link to PDF [facility] Department of Pathology [address] [place] [id number] Note to Patients: This report may contain [...] Final Report Patient Name: ANDRIA MAGAÑA Address: [address] [place] [address] , [place] [address] Gender: F : 1970 (Age: 54) Service: Gastro Location: [facility] Hospital #: [id number] Patient Type: [facility] Taken: 02/23/2025 Received: 02/24/2025 Accessioned: 02/24/2025 Reported: [...] determined by the Surgical Pathology Department at [facility] as part of an ongoing quality head program and in compliance with federally mandated [...] characteristics determined by the Surgical Pathology Department [facility]. It has not been cleared or approved by the U. S. Food and Drug Administration. Note for decalcified specimens: This assay has not been validated on decalcified tissues. Results should be interpreted with caution given the possibility of false negativity on decalcified specimens Rian Flores DO LAB PATHOLOGY ORDERABLES Final Result PATHOLOGY [facility] [address] [place] [address] * SCAN - LABS (01/13/2025) us Provider Scanning Final Result * CT Abdomen and Pelvis Enterography W Contrast (01/02/2025 4:16 PM LIDAR SCIENTIST) Anatomical Region Laterality Modality Abdomen N/A Computed Tomogra phy 01/03/2025 10:2 5 AM LIDAR SCIENTIST Impressions 01/03/2025 10:25 AM LIDAR SCIENTIST No evidence of inflammatory bowel disease. Electronically signed by: Florian Lopez II, D.O. Narrative 01/03/2025 10:25 AM LIDAR SCIENTIST EXAMINATION: CT ENTEROGRAPHY W CONTRAST DATE: 01/02/2025 [...] of inflammatory bowel disease. Electronically signed by: Asad Leitman II, D.O. us Rian T. Klucka DO IMG CT PROCEDURES Final Result from Last 3 Months Insurance IDPA IDPA Advance Directives For more information, please contact: [phone] * Full Code (Latest Code Status on File) Date Activated Date Inactivated Comments 02/23/2025 10:31 AM 02/23/2025 5:22 PM * Full Code Date Activated Date Inactivated Comments 02/23/2025 10:31 AM 02/23/2025 10:31 AM Care Teams Vehicle Trimmer Relationship Specialty Start Date End Date Niya Bush NP [id number] [address] [address] PCP - General Family Medicine 02/22/25 Nicky Woodard, PT Physical Therapist Physical Therapy 11/05/17 Kelsea Reyes, PT Physical Therapist Physical Therapy 12/03/17 Claude Alegria MD 4 [facility] [address] [place] [address] Consulting Physician Neurology 12/07/17 Teo Reyes, PT Physical Therapist Physical Therapy 02/25/23
[2025-03-31 14:44] LABS: Hematocrit 38.6 % (37.0-47.0); Mean Corpuscular HGB Conc 33.7 g/dl (32-36); Mean Corpuscular Hemoglobin 32.5 pg (26-34); Mean Corpuscular Volume 96.5 fl (80-100); Mean Platelet Volume 9.2 fl (7.4-10.4); Platelet Count Result 248 k/mm3 (150-375); Red Cell Distribution Width 11.9 % (11.5-14.5); White Blood Count 4.1 K/mm3 (4.5-10.0)
[2025-03-31 14:54] LABS: Iron 109 ug/dL (37-170)
[2025-03-31 14:59] LABS: Anion Gap 11 mmol/L (4-12); Blood Urea Nitrogen 10 mg/dL (7-17); CRP < 0.5 mg/dL (<1.0); Calcium 9.3 mg/dL (8.4-10.2); Carbon Dioxide 23 mmol/L (22-30); Chloride 105 mmol/L (98-107); Estimated Glomerular Filt Rate > 60; Glucose 125 mg/dL (65-110); Potassium 3.6 mmol/L (3.4-5.0); Sodium 139 mmol/L (137-145)
[2025-03-31 15:03] LABS: Percent Iron Saturation 39 % (20-50)
[2025-03-31 16:02] LABS: Folic Acid 7.7 ng/mL (2.76->20)
== END 2025-03-31 13:43 | disposition home or self-care (01) ==
PROVIDERS: PCP Nurse Practitioner Family; Visit Provider Nurse Practitioner Family
DX: R10.9 Unspecified abdominal pain (principal); R42 Dizziness and giddiness; R53.83 Other fatigue
CPT/HCPCS: 36415; 80048; 82607; 82728; 82746; 83540; 83550; 85027; 86140

== ENCOUNTER 2025-04-01 11:07 | Outpatient (NON) | payer OTHER, MEDICAID, SELFPAY ==
--- OUTSIDE RECORDS SUMMARY | 2025-04-01 11:09 | XMS_ITS | Clinical Summary ---
Author Organization [facility] Address [address] [place] [address] Care Team Providers Care Nozzle Operator Name Role Phone Nicky Woodard PT Unavailable Unavailable Kelsea Reyes PT Unavailable Unavailable Claude Alegria MD Unavailable [phone] Teo Reyes PT Unavailable Unavailable Niya Bush NP Primary Care Provider + [phone] Allergies Active Allergy Reactions Criticality Noted Date [...] 2000 IU daily - Start vitamin D 04278 IU weekly Bilateral carotid artery stenosis 06/22/2023 Neurological symptoms 06/22/2023 Encounter for screening for malignant neoplasm o f colon 04/24/2023 Abdominal pain 04/24/2023 Pharyngoesophageal dysphagia 02/24/2023 Prediabetes 01/19/2023 Overview (01/19/2023): at goal and unlikely to be contributing Assessment & Plan (12/21/2023 2:39 PM LIGHTING FIXTURES DECORATOR): Lab Results Component Value Date HGBA1C 5.4 12/03/2023 HGBA1C 5.7 (H) 11/04/2022 HGBA1C 5.4 10/14/2017 Lab Results Component Value Date LDLCALC 158 (H) 12/03/2023 CREATININE 0.80 12/03/2023 Stable continue same regimen Assessment & Plan (12/03/2023 3:07 PM LIGHTING FIXTURES DECORATOR): Lab Results Component Value Date HGBA1C 5.7 (H) 11/04/2022 HGBA1C 5.4 10/14/2017 Lab Results Component Value Date LDLCALC 84 11/04/2022 CREATININE 0.71 11/25/2023 Stable continue same regimen Assessment & Plan (10/15/2023 3:12 PM LIGHTING FIXTURES DECORATOR): Lab Results Component Value Date HGBA1C 5.7 [...] 12/02/2022 Assessment & Plan (12/02/2022 4:53 PM LIGHTING FIXTURES DECORATOR): Not quite at goal - states that she knows what triggers it Mixed hyperlipidemia 08/26/2022 Assessment & Plan (12/21/2023 2:39 PM LIGHTING FIXTURES DECORATOR): Lab Results Component Value Date CHOL 245 [...] 08/26/2022 Assessment & Plan (12/21/2023 2:27 PM LIGHTING FIXTURES DECORATOR): Worsening sx Was not called by pain mgmt Will place new referral Assessment & Plan (12/02/2022 4:54 PM LIGHTING FIXTURES DECORATOR): Not at goal at this time - has tried gabapentin previously with no improvement Pain in joints of both feet 10/29/2020 Nausea 09/03/2020 Fatigue 09/03/2020 Plantar fasciitis 11/10/2019 S/P total hysterectomy 07/12/2019 Mass of left breast 11/13/2017 Numbness and tingling of left upper extremity 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 GERD (gastroesophageal reflux disease) 4 Assessment & Plan (12/03/2023 3:08 PM LIGHTING FIXTURES DECORATOR): New sx Likely gerd Start omeprazole 40 mg bid x 2 weeks 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 Encounters Date Type Department Care Team Description 03/27/20 6:40 PM CDT - 03/27/20 9:56 PM CDT Emergency [facility] Emergency Department [address] [place] [address] Lisa Frances MD Abdominal pain, generalized (Primary Dx); Enteritis Discharge Disposition: Discharge to home or self care 03/18/20 10:44 AM CDT - 03/18/20 11:59 PM CDT Hospital Encounter [facility] [address] [place] [address] Pelvic and perineal pain Discharge Disposition: Discharge to home or self care 02/29/20 Results Follow-Up [facility] Gastroenterology at [address] [place] [address] Rian Flores DO Surgical pathology 02/24/20 11:40 AM CDT - 02/24/20 12:20 PM CDT Surgery [facility] [address] [place] [address] Klucka, Rian T., DO ESOPHAGOGASTRODUODENOSCOPY BIOPSY 02/24/20 11:37 AM CDT Anesthesia Event [facility] [address] [place] [address] Mariangel Voss MD Zirkelbach, Cecilia A., LATOYA 02/24/20 10:29 AM CDT - 02/24/20 1:17 PM CDT Hospital Encounter [facility] [address] [place] [address] Rian Flores, Gastroesophageal reflux disease, unspecified whether esophagitis present; Abdominal pain Discharge Disposition: Discharge to home or self care 02/22/20 Telephone [facility] Gastroenterology at [address] [place] [address] Suzy Herrera 02/11/20 Telephone [facility] Gastroenterology at [address] [place] [address] Suzy Herrera 01/04/20 Telephone [facility] Gastroenterology at [address] [place] [address] Lindsay Campoverde LPN 01/04/20 Telephone [facility] Gastroenterology at [address] [place] [address] Lindsay Campoverde LPN 01/04/20 Results Follow-Up [facility] Gastroenterology at [address] [place] [address] Rian Flores, DO CT Abdomen and Pelvis Enterography W Contrast 01/03/20 2:02 PM LIGHTING FIXTURES DECORATOR - 01/03/20 11:59 PM LIGHTING FIXTURES DECORATOR Hospital Encounter [facility] Imaging and Radiology [address] [place] [address] Abdominal pain; Abnormal finding on GI tract [...] on file Legal Sex Female 12:33 PM LIGHTING FIXTURES DECORATOR Gender Identity Not on file Sexual Orientation [...] Read Routine (OP Routine) 01/02/2025 4:16 PM LIGHTING FIXTURES DECORATOR Abdominal pain Abnormal finding on GI tract imaging from Last 3 Months Results * (ABNORMAL) Urinalysis reflex to microscopic and culture Urine (03/27/2025 9:12 PM CDT) Color, ur Straw Yellow Comment:Testing performed by : [facility], [place] [address] Clarity, ur Clear Clear CERNER Comment:Testing performed by : [facility], [place] [address] Specific gravity, ur >1.050(A) 1.003 - 1.030 CERNER CH Comment:Testing performed by : [facility], [address] [place] [address] pH, urine 7.0 CERNER Comment: Interpretive Data U rine pH is affected by diet, medications, systemic acid-base disturbances, and renal tubular function. pH may affect urinary stone formation. For example, urine pH below 6.0 may help reduce the tendency for calcium phosphate stones and pH greater than 6.0 may reduce the tendency for uric acid stone formation. Source: [facility] [employer] Current Interpretive Data was last revised on 2017 Testing performed by: [facility], [place] [address] Protein, ur ql Negative Negative CERNER CH Comment:Testing performed by : [facility], [place] [address] Glucose, ur ql Negative Negative CERNER CH Comment:Testing performed by : [facility], [place] [address] Ketones, ur Negative Negative CERNER CH Comment:Testing performed by : [facility] [address], [place] [address] Bilirubin, ur Negative Negative CERNER CH Comment:Testing performed by : [facility], [place] [address] Blood, ur Negative Negative CERNER CH Comment:Testing performed by : [facility], [address] [place] [address] Urobilinogen, ur <2.0 <2.0 mg/dL CERNER CH Comment:Testing performed by : [facility] [address] [address] Nitrite, ur Negative Negative CERNER CH Comment:Testing performed by : [facility] [address], [place] [address] Leukocyte esterase, ur Negative Negative CERNER CH Comment:Testing performed by : [facility] [address] [place] [address] UA reflex comment Reflex conditions for microscopic UA and culture not met. CERNER CH Comment:Testing performed by : [facility] [address], [place] [address] Urine 03/27/2025 9:12 PM CDT 03/27/2025 9:14 PM CDT Lisa Frances MD LAB MICROBIOLOGY - GENE [facility] ORDERABLES Final Result [facility] [address] [facility] [place] [address] * CT Abdomen Pelvis W Contrast (03/27/2025 8:29 PM CDT) Anatomical Region Laterality Modality Body N/A Computed Tomogra phy 03/27/2025 8:23 PM CDT Impressions 03/28/2025 8:15 AM CDT NO ACUTE INTRA-ABDOMINAL FINDINGS Stat report by [facility] Electronically signed by: Mike Alvarado M.D. [...] NO ACUTE INTRA-ABDOMINAL FINDINGS Stat report by [facility] Electronically signed by: Mike Alvarado M.D. [...] was last reviewed 2021. Testing performed by: [facility], [address], [place] [address] Blood 03/27/2025 7:28 PM CDT 03/27/2025 7:46 PM CDT Cliff Grier MD LAB BLOOD ORDERABLES Fin al Result [facility] [address] [address] [place] [address] * Differential, auto (03/27/2025 7:28 PM CDT) Neutrophil abs 2.62 1.50 - 6.50 K/cumm Comment:Testing performed by : [facility] [place] [address] Imm gran abs 0.01 0.00 - 0.10 K/cumm CERNER Comment:Testing performed by : [facility] [place] [address] Lymphocyte abs 1.44 0.80 - 3.30 K/cumm CERNER Comment:Testing performed by : [facility] [place] [address] Monocyte abs 0.60 0.20 - 0.80 K/cumm CERNER Comment:Testing performed by : [facility] [place] [address] Eosinophil abs 0.01 0.00 - 0.50 K/cumm CERNER Comment:Testing performed by : [facility] [place] [address] Basophil abs 0.02 0.00 - 0.10 K/cumm CERNER Comment:Testing performed by : [facility] [place] [address] Neutrophil pct 55.8 % CERNER Comment: Interpretive Data Percent cell count reference ranges are not reported, since discordance with absolute values may lead to misinterpretation of CBC data. Current Interpretive Data was last revised on 2018. Testing performed by: [facility] [place] [address] Imm gran pct 0.2 % CERNER Comment: Interpretive Data Percent cell count reference ranges are not reported, since discordance with absolute values may lead to misinterpretation of CBC data. Current Interpretive Data was last revised on 2018. Testing performed by: [facility] [address], [place] [address] Lymphocyte pct 30.6 % [facility] Comment: Interpretive Data Percent cell count reference ranges are not reported, since discordance with absolute values may lead to misinterpretation of CBC data. Current Interpretive Data was last revised on 2018. Testing performed [facility]: [facility] [address], [place] [address] Monocyte pct 12.8 % [facility] Comment: Interpretive Data Percent cell count reference ranges are not reported, since discordance with absolute values may lead to misinterpretation of CBC data. Current Interpretive Data was last revised on 2018. Testing performed [facility]: [facility] [address], [place] [address] Eosinophil pct 0.2 % [facility] Comment: Interpretive Data Percent cell count reference ranges are not reported, since discordance with absolute values may lead to misinterpretation of CBC data. Current Interpretive Data was last revised on 2018. Testing performed by: [facility] [address], [place] [address] Basophil pct 0.4 % [facility] Comment: Interpretive Data Percent cell count reference ranges are not reported, since discordance with absolute values may lead to misinterpretation of CBC data. Current Interpretive Data was last revised on 2018. Testing performed by: [facility] [address], [place] [address] Blood 03/27/2025 7:28 PM CDT 03/27/2025 7:46 PM CDT Cliff Grier MD LAB BLOOD ORDERABLES Fin al Result [facility] [address] [address] [place] [address] * CBC with auto differential (03/27/2025 7:28 PM CDT) WBC 4.70 3.80 - 9.90 K/cumm Comment:Testing performed by : [facility] [address], [place] [address] Hgb 13.0 11.9 - 15.5 g/dL ROSMERY Comment:Testing performed by : [facility] [place] [address] Hct 36.7 35.6 - 45.5 % CERNER CH Comment:Testing performed by : [facility], [address] [place] [address] Plt 255 150 - 400 K/cumm CERNER CH Comment:Testing performed by : [facility] [address] [place] [address] MPV 9.2 9.1 - 12.3 fL CERNER CH Comment:Testing performed by : [facility], [facility] [place] [address] RBC 3.90 3.90 - 5.20 M/cumm CERNER CH Comment:Testing performed by : [address] [address] [place] [address] MCV 94.1 81.3 - 96.4 fL CERNER CH Comment:Testing performed by : [facility] [address] [place], [place] [address] MCH 33.3 27.1 - 33.3 pg CERNER CH Comment:Testing performed by : [facility] [place] [address] MCHC 35.4 32.3 - 35.7 g/dL CERNER CH Comment:Testing performed by : [address] [address] [place] [address] RDW CV 11.6 11.1 - 14.9 % CERNER CH Comment:Testing performed by : [facility] [place] [address] RDW SD 39.7 35.7 - 48.1 fL CERNER CH Comment:Testing performed by : [address] [address] [place] [address] NRBC abs 0.00 0.00 - 0.01 K/cumm CERNER CH Comment:Testing performed by : [facility] [place] [address] Blood Venous blood specimen / Unknown 03/27/2025 7:28 PM CDT 03/27/2025 7:46 PM CDT Lisa Frances MD LAB BLOOD ORDERABLES Fi nal Result [facility] [address] [address] [place] [address] * Lipase (03/27/2025 7:28 PM CDT) Lipase 20 10 - 99 Units/L Comment:Testing performed by : [facility] [address], [place] [address] Blood Venous blood specimen / Unknown 03/27/2025 7:28 PM CDT 03/27/2025 7:46 PM CDT Lisa Frances MD LAB BLOOD ORDERABLES Fi nal Result [facility] [address] [address] Department [place] [address] * Comprehensive metabolic panel (03/27/2025 7:28 PM CDT) Pathologist [facility] Sodium 138 135 - 145 mmol/L Comment:Testing performed by : [facility] [address], [place] [address] Potassium, pl 4.0 3.3 - 4.9 mmol/L CERNER CH Comment:Testing performed by : [facility] [address], [place] [address] Chloride 103 97 - 110 mmol/L CERNER Comment:Testing performed by : [facility] [address], [place] [address] CO2 24 22 - 32 mmol/L CERNER CH Comment:Testing performed by : [facility] [address], [place] [address] Anion gap 11 2 - 15 mmol/L CERNER Comment:Testing performed by : [facility] [address], [place] [address] BUN 13 6 - 25 mg/dL CERNER CH Comment:Testing performed by : [facility] [address], [place] [address] Creatinine 0.77 0.60 - 1.10 mg/dL CERNER CH Comment:Testing performed by : [facility] [address], [place] [address] Glucose 95 70 - 199 mg/dL CERNER [...] was last revised 2022. Testing performed by: [facility] [address], [place] [address] Calcium 9.2 8.5 - 10.3 mg/dL CERNER CH Comment:Testing performed by : [facility] [address], [place] [address] Bilirubin, total 0.5 0.1 - 1.2 mg/dL CERNER CH Comment:Testing performed by : [facility] [address], [place] [address] Protein, pl 7.1 6.5 - 8.5 g/dL CERNER CH Comment:Testing performed by : [facility] [address], [place] [address] Albumin 4.3 3.5 - 5.0 g/dL CERNER CH Comment:Testing performed by : [facility] [address], [place] [address] Alk phos 73 40 - 130 Units/L CERNER CH Comment:Testing performed by : [facility] [address], [place] [address] ALT 23 7 - 45 Units/L CERNER CH Comment:Testing performed by : [facility] [address], [place] [address] AST 22 10 - 45 Units/L CERNER CH Comment:Testing performed by : [facility] [address] Blood 03/27/2025 7:28 PM CDT 03/27/2025 7:46 PM CDT Lisa Frances MD LAB BLOOD ORDERABLES Fi nal Result [facility] [address] [address] [place] [address] * POCT hCG, urine (03/27/2025 7:03 PM [...] by: Patricia Mai M.D. Mack Gambino MD [facility] PROCEDURES Adela l Result * EGD (02/23/2025 10:40 AM CDT) Anatomical Region Laterality Modality Other Narrative Procedure Note Rian Flores, - 02/23/2025 10:40 AM CDT [facility] Patient Name: Andria Magaña Procedure Date: 02/23/2025 10:40 AM Date of : 1970 Admit Type: Outpatient Age: 54 Gender: Female Attending MD: Rian Flores D.O. Room: [facility] ENDOSCOPY ROOM 3 Note Status: Finalized Patient [...] passed under direct vision. The Endoscope [id number]-[id number] was introduced through the mouth, and advanced [...] 10:40 AM Procedure Code(s): --- Professional --- 94172, Esophagogastroduodenoscopy, flexible, transoral; with biopsy, single or multiple --- Technical --- 88009, Esophagogastroduodenoscopy, flexible, transoral; with biopsy, single or multiple Diagnosis Code(s): --- Professional --- K21.9, Gastro-esophageal reflux disease without esophagitis --- Technical --- K21.9, Gastro-esophageal reflux disease without esophagitis CPT copyright 2020 [employer]. All rights reserved. The codes documented in this report are preliminary and upon import export agent reviewmay be revised to meet current compliance requirements. Recognized by the [employer] for promoting quality in endoscopy us Rian Flores DO ENDOSCOPY PROCEDURES Final Res ult * Colonoscopy (02/23/2025 10:38 AM CDT) Anatomical Region Laterality Modality Other Narrative Procedure Note Rian Flores DO - 02/23/2025 10:[address] [facility] Patient Name: Andria Magaña Procedure Date: 02/23/2025 10:38 AM Date of : 1970 Admit Type: Outpatient Age: 54 Gender: Female Attending MD: Rian Flores D.O. Room: [facility] ENDOSCOPY ROOM 3 Note Status: Finalized Patient [...] under direct vision. The Pediatric Colonoscope [id number] was introducedthrough the anus and advanced to [...] 10:38 AM Procedure Code(s): --- Professional --- 42232, Colonoscopy, flexible; diagnostic, including collection of specimen(s) by brushing or washing, when performed (separateprocedure) --- Technical --- 54210, Colonoscopy, flexible; diagnostic, including collection of specimen(s) by brushing or washing, when performed (separateprocedure) Diagnosis Code(s): --- Professional --- R93.3, Abnormal findings on diagnostic imaging of other parts of digestive tract --- Technical --- R93.3, Abnormal findings on diagnostic imaging of other parts of digestive tract CPT copyright 2020 [employer]. All rights reserved. The codes documented in this report are preliminary and upon import export agent reviewmay be revised to meet current compliance requirements. Recognized by the [employer] for promoting quality in endoscopy Rian Flores DO ENDOSCOPY PROCEDURES Final Res ult * Surgical pathology (02/23/2025 10:38 AM CDT) Tissue (Gastric/Stomach biopsy) 02/23/2025 12:00 PM CDT Narrative PATHOLOGY [facility] - 02/27/2025 3:41 PM CDT EPIC results best viewed via link to PDF [facility] Department of Pathology [address] [place] [address] Note to Patients: This report may contain [...] Final Report Patient Name: ANDRIA MAGAÑA Address: [address] [place] [address] , [place] Gender: F : 1970 (Age: 54) Service: Gastro Location: [facility] Hospital #: [id number] Patient Type: [facility] Taken: 02/23/2025 Received: 02/24/2025 Accessioned: 02/24/2025 Reported: [...] determined by the Surgical Pathology Department at [facility] as part of an ongoing manager quality improvement program and in compliance with federally mandated [...] characteristics determined by the Surgical Pathology Department [facility]. It has not been cleared or approved by the U. S. Food and Drug Administration. Note for decalcified specimens: This assay has not been validated on decalcified tissues. Results should be interpreted with caution given the possibility of false negativity on decalcified specimens Rian Flores DO LAB PATHOLOGY ORDERABLES Final Result PATHOLOGY [facility] ([place] [address] [place] [address] * SCAN - LABS (01/13/2025) us Provider Scanning Final Result * CT Abdomen and Pelvis Enterography W Contrast (01/02/2025 4:16 PM LIGHTING FIXTURES DECORATOR) Anatomical Region Laterality Modality Abdomen N/A Computed Tomogra phy 01/03/2025 10:2 5 AM LIGHTING FIXTURES DECORATOR Impressions 01/03/2025 10:25 AM LIGHTING FIXTURES DECORATOR No evidence of inflammatory bowel disease. Electronically signed by: Florian Lopez II, D.O. Narrative 01/03/2025 10:25 AM LIGHTING FIXTURES DECORATOR EXAMINATION: CT ENTEROGRAPHY W CONTRAST DATE: 01/02/2025 [...] Advance Directives For more information, please contact: [phone] * Full Code (Latest Code Status on File) Date Activated Date Inactivated Comments 02/23/2025 10:31 AM 02/23/2025 5:22 PM * Full Code Date Activated Date Inactivated Comments 02/23/2025 10:31 AM 02/23/2025 10:31 AM Care Teams Nozzle Operator Relationship Specialty Start Date End Date Niya Bush NP [address] [address] PCP - General Family Medicine 02/22/25 Nicky Woodard, PT Physical Therapist Physical Therapy 11/05/17 Kelsea Reyes, PT Physical Therapist Physical Therapy 12/03/17 Claude Alegria MD 4 [facility] [address] [place] [address] Consulting Physician Neurology 12/07/17 Teo Reyes, PT Physical Therapist Physical Therapy 02/25/23
--- OUTSIDE RECORDS SUMMARY | 2025-04-01 11:09 | XMS_ITS | Encounter Summary ---
Author Organization [employer] Address [address] [place] [address] Care Team Providers Care Food And Beverage Assistant Manager Name Role Phone Mannie Bhakta MD Primary Care Provider [phone] Encounter Details Date Type Department Care Team (Latest Contact Info) Description 06/18/2006 Outpatient Historical [facility] TH[facility]AP[facility] [place] Helio Gonzalez DO NO ADDRESS ON FILE Pain in Joint, Lower Leg (Primary Dx) Social History Tobacco Use Types Packs/Day Years Used Date Smoking Tobacco: Never Assessed Comments Unknown Sex and Gender Information Value Date Recorded Sex Assigned at Not on file Legal Sex Female 4:15 AM CASEWORK SUPERVISOR Gender Identity Not on file Sexual Orientation Not on file documented as of this encounter Plan of Treatment Not on file documented as of this encounter Visit Diagnoses Diagnosis Pain in joint, lower leg- Primary documented in this encounter Care Teams Food And Beverage Assistant Manager Relationship Specialty Start Date End Date Mannie Bhakta MD [address] [place] [address] PCP - General Internal Medicine 08/31/12 12/12/15 documented as of this encounter
--- OUTSIDE RECORDS SUMMARY | 2025-04-01 11:09 | XMS_ITS | Encounter Summary ---
Author Organization [employer] Address [address] [place] [address] Care Team Providers Care Glassworker Name Role Phone Mannie Bhakta MD Primary Care Provider [phone] Encounter Details Date Type Department Care Team (Late st Contact Info) Description 07/20/2006 Outpatient Historical [facility] Helio Gonzalez DO NO ADDRESS ON FILE Social History Tobacco Use Types Packs/Day Years Used Date Smoking Tobacco: Never Assessed Comments Unknown Sex and Gender Information Value Date Recorded Sex Assigned at Not on file Legal Sex Female 4:15 AM DOORSHAKER Gender Identity Not on file Sexual Orientation Not on file documented as of this encounter Plan of Treatment Not on file documented as of this encounter Visit Diagnoses Not on filedocumented in this encounter Care Teams Glassworker Relationship Specialty Start Date End Date Mannie Bhakta MD [address] [place] [address] PCP - General Internal Medicine 08/31/12 12/12/15 documented as of this encounter
--- OUTSIDE RECORDS SUMMARY | 2025-04-01 11:09 | XMS_ITS | Referral Summary ---
Author Organization [facility] Address [address] [place] [address] Care Team Providers Care Applications Architect Name Role Phone Nicky Woodard PT Unavailable Unavailable Kelsea Reyes PT Unavailable Unavailable Claude Alegria MD Unavailable [phone] Teo Reyes PT Unavailable Unavailable Niya Bush NP Primary Care Provider [phone] Encounters Date Type Department Care Team Description 03/27/20 6:40 PM CDT - 03/27/20 9:56 PM CDT Emergency [facility] [address] [place] [address] Lisa Frances MD Abdominal pain, generalized (Primary Dx); Enteritis Discharge Disposition: Discharge to home or self care 03/18/20 10:44 AM CDT - 03/18/20 11:59 PM CDT Hospital Encounter [facility] [address] [place] [address] Pelvic and perineal pain Discharge Disposition: Discharge to home or self care 02/29/20 Results Follow-Up [facility] Gastroenterology at [address] [place] [address] Rian Flores DO Surgical pathology 02/24/20 11:40 AM CDT - 02/24/20 12:20 PM CDT Surgery [facility] [address] [place] [address] Klucka, Rian T., DO ESOPHAGOGASTRODUODENOSCOPY BIOPSY 02/24/20 11:37 AM CDT Anesthesia Event [facility] [address] [place] [address] Mariangel Voss MD Zirkelbach, Cecilia A., CRNA 02/24/20 10:29 AM CDT - 02/24/20 1:17 PM CDT Hospital Encounter [facility] [address] [place] [address] Rian Flores, Gastroesophageal reflux disease, unspecified whether esophagitis present; Abdominal pain Discharge Disposition: Discharge to home or self care 02/22/20 Telephone [facility] Gastroenterology at [address] [place] [address] Suzy Herrera 02/11/20 Telephone [facility] Gastroenterology at [address] [place] [address] Suzy Herrera 01/04/20 Telephone [facility] Gastroenterology at [address] [place] [address] Lindsay Campoverde LPN 01/04/20 Telephone [facility] Gastroenterology at [address] [place] [address] Lindsay Campoverde LPN 01/04/20 Results Follow-Up [facility] Gastroenterology at [address] [place] [address] Rian Flores, DO CT Abdomen and Pelvis Enterography W Contrast 01/03/20 2:02 PM CERTIFIED ADDICTION COUNSELOR - 01/03/20 11:59 PM CERTIFIED ADDICTION COUNSELOR Hospital Encounter [facility] [address] [place] [address] Abdominal pain; Abnormal finding on GI tract [...] 2000 IU daily - Start vitamin D 26345 IU weekly Bilateral carotid artery stenosis 06/22/2023 Neurological symptoms 06/22/2023 Encounter for screening for malignant neoplasm o f colon 04/24/2023 Abdominal pain 04/24/2023 Pharyngoesophageal dysphagia 02/24/2023 Prediabetes 01/19/2023 Overview (01/19/2023): at goal and unlikely to be contributing Assessment & Plan (12/21/2023 2:39 PM CERTIFIED ADDICTION COUNSELOR): Lab Results Component Value Date HGBA1C 5.4 12/03/2023 HGBA1C 5.7 (H) 11/04/2022 HGBA1C 5.4 10/14/2017 Lab Results Component Value Date LDLCALC 158 (H) 12/03/2023 CREATININE 0.80 12/03/2023 Stable continue same regimen Assessment & Plan (12/03/2023 3:07 PM CERTIFIED ADDICTION COUNSELOR): Lab Results Component Value Date HGBA1C 5.7 (H) 11/04/2022 HGBA1C 5.4 10/14/2017 Lab Results Component Value Date LDLCALC 84 11/04/2022 CREATININE 0.71 11/25/2023 Stable continue same regimen Assessment & Plan (10/15/2023 3:12 PM CERTIFIED ADDICTION COUNSELOR): Lab Results Component Value Date HGBA1C 5.7 [...] 12/02/2022 Assessment & Plan (12/02/2022 4:53 PM CERTIFIED ADDICTION COUNSELOR): Not quite at goal - states that she knows what triggers it Mixed hyperlipidemia 08/26/2022 Assessment & Plan (12/21/2023 2:39 PM CERTIFIED ADDICTION COUNSELOR): Lab Results Component Value Date CHOL 245 [...] 08/26/2022 Assessment & Plan (12/21/2023 2:27 PM CERTIFIED ADDICTION COUNSELOR): Worsening sx Was not called by pain mgmt Will place new referral Assessment & Plan (12/02/2022 4:54 PM CERTIFIED ADDICTION COUNSELOR): Not at goal at this time - has tried gabapentin previously with no improvement Pain in joints of both feet 10/29/2020 Nausea 09/03/2020 Fatigue 09/03/2020 Plantar fasciitis 11/10/2019 S/P total hysterectomy 07/12/2019 Mass of left breast 11/13/2017 Numbness and tingling of left upper extremity 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 GERD (gastroesophageal reflux disease) 4 Assessment & Plan (12/03/2023 3:08 PM CERTIFIED ADDICTION COUNSELOR): New sx Likely gerd Start omeprazole 40 [...] on file Legal Sex Female 12:33 PM CERTIFIED ADDICTION COUNSELOR Gender Identity Not on file Sexual Orientation [...] Read Routine (OP Routine) 01/02/2025 4:16 PM CERTIFIED ADDICTION COUNSELOR Abdominal pain Abnormal finding on GI tract imaging from Last 3 Months Results * (ABNORMAL) Urinalysis reflex to microscopic and culture Urine (03/27/2025 9:12 PM CDT) Color, ur Straw Yellow Comment:[facility] [address] [place] [address] Clarity, ur Clear Clear CERNER CH Comment:Testing performed by : [facility], [place] [address] Specific gravity, ur >1.050(A) 1.003 - 1.030 CERNER CH Comment:Testing performed by : [facility] [address], [place] [address] pH, urine 7.0 CERNER CH Comment: Interpretive Data U rine pH is affected by diet, medications, systemic acid-base disturbances, and renal tubular function. pH may affect urinary stone formation. For example, urine pH below 6.0 may help reduce the tendency for calcium phosphate stones and pH greater than 6.0 may reduce the tendency for uric acid stone formation. Source: [facility] Current Interpretive Data was last revised on 2017 Testing performed by: [facility] [address], [place] [address] Protein, ur ql Negative Negative CERNER CH Comment:Testing performed by : [facility], [place] [address] Glucose, ur ql Negative Negative CERNER CH Comment:Testing performed by : [facility] [address], [place] [address] Ketones, ur Negative Negative CERNER CH Comment:Testing performed by : [facility] [address], [place] [address] Bilirubin, ur Negative Negative CERNER CH Comment:Testing performed by : [facility] [address], [place] [address] Blood, ur Negative Negative CERNER CH Comment:Testing performed by : [facility] [address], [place] [address] Urobilinogen, ur <2.0 <2.0 mg/dL CERNER CH Comment:Testing performed by : [facility] [address], [place] [address] Nitrite, ur Negative Negative CERNER CH Comment:Testing performed by : [facility] [address], [place] [address] Leukocyte esterase, ur Negative Negative CERNER CH Comment:Testing performed by : [facility] [address], [place] [address] UA reflex comment Reflex conditions for microscopic UA and culture not met. CERNER CH Comment:Testing performed by : [facility], [address], [place] [address] Urine 03/27/2025 9:12 PM CDT 03/27/2025 9:14 PM CDT Lisa Frances MD LAB MICROBIOLOGY - GENE RAL ORDERABLES Final Result [facility] [address] Department [place] [address] * CT Abdomen Pelvis W Contrast (03/27/2025 8:29 PM CDT) Anatomical Region Laterality Modality Body N/A Computed Tomogra phy 03/27/2025 8:23 PM CDT Impressions 03/28/2025 8:15 AM CDT NO ACUTE INTRA-ABDOMINAL FINDINGS Stat report by [facility] Electronically signed by: Mike Alvarado M.D. [...] NO ACUTE INTRA-ABDOMINAL FINDINGS Stat report by [facility] Electronically signed by: Mike Alvarado M.D. [...] was last reviewed 2021. Testing performed by: [facility], [address] [place] [address] [place] [address] Blood 03/27/2025 7:28 PM CDT 03/27/2025 7:46 PM CDT us Cliff Grier MD LAB BLOOD ORDERABLES Fin al Result [facility] [address] Department [place] [address] * Differential, auto (03/27/2025 7:28 PM CDT) Neutrophil abs 2.62 1.50 - 6.50 K/cumm Comment:Testing performed by : [facility], [address] [place], [place] [address] [place] [address] Imm gran abs 0.01 0.00 - 0.10 K/cumm CERNER Comment:Testing performed by : [address] [place] [address] Lymphocyte abs 1.44 0.80 - 3.30 K/cumm CERNER Comment:Testing performed by : [address] [place] [address] Monocyte abs 0.60 0.20 - 0.80 K/cumm CERNER CH Comment:Testing performed by : [address] [place] [address] Eosinophil abs 0.01 0.00 - 0.50 K/cumm CERNER Comment:Testing performed by : [address] [place] [address] Basophil abs 0.02 0.00 - 0.10 K/cumm CERNER Comment:Testing performed by : [facility] [address] [place], [place] [address] [place] [address] Neutrophil pct 55.8 % CERNER Comment: Interpretive Data Percent cell count reference ranges are not reported, since discordance with absolute values may lead to misinterpretation of CBC data. Current Interpretive Data was last revised on 2018. Testing performed by: [facility], [address] [place] [address] Imm gran pct 0.2 % CERNER Comment: Interpretive Data Percent cell count reference ranges are not reported, since discordance with absolute values may lead to misinterpretation of CBC data. Current Interpretive Data was last revised on 2018. Testing performed by: [facility], [place] [address] Lymphocyte pct 30.6 % CERNER Comment: Interpretive Data Percent cell count reference ranges are not reported, since discordance with absolute values may lead to misinterpretation of CBC data. Current Interpretive Data was last revised on 2018. Testing performed by: [facility], [facility] [place] [address] Monocyte pct 12.8 % CERNER Comment: Interpretive Data Percent cell count reference ranges are not reported, since discordance with absolute values may lead to misinterpretation of CBC data. Current Interpretive Data was last revised on 2018. Testing performed by: [facility], [address] [place] [address] Eosinophil pct 0.2 % CERNER Comment: Interpretive Data Percent cell count reference ranges are not reported, since discordance with absolute values may lead to misinterpretation of CBC data. Current Interpretive Data was last revised on 2018. Testing performed by: [facility], [place] [address] Basophil pct 0.4 % CERNER Comment: Interpretive Data Percent cell count reference ranges are not reported, since discordance with absolute values may lead to misinterpretation of CBC data. Current Interpretive Data was last revised on 2018. Testing performed by: [facility], [facility] [place] [address] Blood 03/27/2025 7:28 PM CDT 03/27/2025 7:46 PM CDT us Cliff Grier MD LAB BLOOD ORDERABLES Fin al Result [facility] [address] Department [place] [address] * CBC with auto differential (03/27/2025 7:28 PM CDT) [facility] WBC 4.70 3.80 - 9.90 K/cumm Comment:Testing performed by : [facility] [place] [address] Hgb 13.0 11.9 - 15.5 g/dL CERNER CH Comment:Testing performed by : [facility] [place] [address] Hct 36.7 35.6 - 45.5 % CERNER CH Comment:Testing performed by : [facility] [place] [address] Plt 255 150 - 400 K/cumm CERNER CH Comment:Testing performed by : [facility] [place] [address] MPV 9.2 9.1 - 12.3 fL CERNER CH Comment:Testing performed by : [facility] [place] [address] RBC 3.90 3.90 - 5.20 M/cumm CERNER CH Comment:Testing performed by : [facility] [place] [address] MCV 94.1 81.3 - 96.4 fL CERNER CH Comment:Testing performed by : [facility] [place] [address] MCH 33.3 27.1 - 33.3 pg CERNER CH Comment:Testing performed by : [facility] [place] [address] MCHC 35.4 32.3 - 35.7 g/dL CERNER CH Comment:Testing performed by : [facility] [place] [address] RDW CV 11.6 11.1 - 14.9 % CERNER CH Comment:Testing performed by : [facility] [place] [address] RDW SD 39.7 35.7 - 48.1 fL CERNER CH Comment:Testing performed by : [facility] [place] [address] NRBC abs 0.00 0.00 - 0.01 K/cumm CERNER CH Comment:Testing performed by : [facility] [place] [address] Blood Venous blood specimen / Unknown 03/27/2025 7:28 PM CDT 03/27/2025 7:46 PM CDT Lisa Frances MD LAB BLOOD ORDERABLES Fi nal Result Performing Organization Address [facility] de Phone Number [facility] [address] [address] [facility] [place] [address] * Lipase (03/27/2025 7:28 PM CDT) Pathologist [facility] Lipase 20 10 - 99 Units/L Comment:Testing performed by : [facility] [place] [address] Blood Venous blood specimen / Unknown 03/27/2025 7:28 PM CDT 03/27/2025 7:46 PM CDT Lisa Frances MD LAB BLOOD ORDERABLES Fi nal Result Performing Organization Address [facility] Phone Number [facility] [address] [address] [facility] [place] [address] * Comprehensive metabolic panel (03/27/2025 7:28 PM CDT) Pathologist [facility] Sodium 138 135 - 145 mmol/L Comment:Testing performed by : [facility] [address], [place] [address] Potassium, pl 4.0 3.3 - 4.9 mmol/L CERNER CH Comment:Testing performed by : [facility] [address], [place] [address] Chloride 103 97 - 110 mmol/L CERNER CH Comment:Testing performed by : [facility] [address], [place] [address] CO2 24 22 - 32 mmol/L CERNER CH Comment:Testing performed by : [facility] [address], [place] [address] Anion gap 11 2 - 15 mmol/L CERNER CH Comment:Testing performed by : [facility] [address], [place] [address] BUN 13 6 - 25 mg/dL CERNER CH Comment:Testing performed by : [facility] [address], [place] [address] Creatinine 0.77 0.60 - 1.10 mg/dL CERNER CH Comment:Testing performed by : [facility] [address], [place] [address] Glucose 95 [...] was last revised 2022. Testing performed by: [facility] [address], [place] [address] Calcium 9.2 8.5 - 10.3 mg/dL CERNER CH Comment:Testing performed by : [facility] [address], [place] [address] Bilirubin, total 0.5 0.1 - 1.2 mg/dL CERNER CH Comment:Testing performed by : [facility] [address], [place] [address] Protein, pl 7.1 6.5 - 8.5 g/dL CERNER CH Comment:Testing performed by : [facility] [address], [place] [address] Albumin 4.3 3.5 - 5.0 g/dL CERNER CH Comment:Testing performed by : [facility] [address], [place] [address] Alk phos 73 40 - 130 Units/L CERNER CH Comment:Testing performed by : [facility] [address], [place] [address] ALT 23 7 - 45 Units/L CERNER CH Comment:Testing performed by : [facility] [address], [place] [address] AST 22 10 - 45 Units/L CERNER CH Comment:Testing performed by : [facility] [address], [place] [address] Blood 03/27/2025 7:28 PM CDT 03/27/2025 7:46 PM CDT us Lisa Frances MD LAB BLOOD ORDERABLES Fi nal Result [facility] [address] Department [place] [address] * POCT hCG, urine (03/27/2025 [...] by: Patricia Mai M.D. Mack Gambino MD [facility] [place] PROCEDURES Adela l Result * EGD (02/23/2025 10:40 AM CDT) Anatomical Region Laterality Modality Other Narrative Procedure Note Rian Flores, - 02/23/2025 10:40 AM CDT [facility] Patient Name: Andria Magaña Procedure Date: 02/23/2025 10:40 AM Date of : 1970 Admit Type: Outpatient Age: 54 Gender: Female Attending MD: Rian Flores D.O. Room: [facility] ENDOSCOPY ROOM 3 Note Status: Finalized Patient Profile: Refer to note in patient chart for documentation of history and physical. Procedure: Upper GI endoscopy Indications: Follow-up of gastro-esophageal reflux disease Referring MD: Macraio Omer Providers: Rian Flores D.O. Impression: - [...] passed under direct vision. The Endoscope GIF-H190 [id number] was introduced through the mouth, and advanced [...] 10:40 AM Procedure Code(s): --- Professional --- 36030, Esophagogastroduodenoscopy, flexible, transoral; with biopsy, single or multiple --- Technical --- 47116, Esophagogastroduodenoscopy, flexible, transoral; with biopsy, single or multiple Diagnosis Code(s): --- Professional --- K21.9, Gastro-esophageal reflux disease without esophagitis --- Technical --- K21.9, Gastro-esophageal reflux disease without esophagitis CPT copyright 2020 [employer]. All rights reserved. The codes documented in this report are preliminary and upon senior product development manager reviewmay be revised to meet current compliance requirements. Recognized by the [employer] for promoting quality in endoscopy Rian Flores DO ENDOSCOPY PROCEDURES Final Res ult * Colonoscopy (02/23/2025 10:38 AM CDT) Anatomical Region Laterality Modality Other Narrative Procedure Note Rian Flores, DO - 02/23/2025 10:38 AM CDT [facility] Patient Name: Andria Magaña Procedure Date: 02/23/2025 10:38 AM Date of : 1970 Admit Type: Outpatient Age: 54 Gender: Female Attending MD: Rian Flores D.O. Room: [facility] ENDOSCOPY ROOM 3 Note Status: Finalized Patient [...] under direct vision. The Pediatric Colonoscope PCF-H190L [id number] was introducedthrough the anus and advanced to [...] 10:38 AM Procedure Code(s): --- Professional --- 37289, Colonoscopy, flexible; diagnostic, including collection of specimen(s) by brushing or washing, when performed (separateprocedure) --- Technical --- 84942, Colonoscopy, flexible; diagnostic, including collection of specimen(s) by brushing or washing, when performed (separateprocedure) Diagnosis Code(s): --- Professional --- R93.3, Abnormal findings on diagnostic imaging of other parts of digestive tract --- Technical --- R93.3, Abnormal findings on diagnostic imaging of other parts of digestive tract CPT copyright 2020 [employer]. All rights reserved. The codes documented in this report are preliminary and upon senior product development manager reviewmay be revised to meet current compliance requirements. Recognized by the [employer] for promoting quality in endoscopy Rian Flores DO ENDOSCOPY PROCEDURES Final Res ult * Surgical pathology (02/23/2025 10:38 AM CDT) Tissue (Gastric/Stomach biopsy) 02/23/2025 12:00 PM CDT Narrative PATHOLOGY [facility] - 02/27/2025 3:41 PM CDT EPIC results best viewed via link to PDF [facility] Department of Pathology [address] [place] [address] Note to Patients: This report may contain [...] Final Report Patient Name: ANDRIA MAGAÑA Address: [address] [place] [address] , [address], [address] Gender: F : 1970 (Age: 54) Service: Gastro Location: [facility] Hospital #: [id number] Patient Type: [facility] Taken: 02/23/2025 Received: 02/24/2025 Accessioned: 02/24/2025 Reported: [...] determined by the Surgical Pathology Department at [facility] as part of an ongoing software quality assurance engineer program and in compliance with federally mandated [...] characteristics determined by the Surgical Pathology Department [facility]. It has not been cleared or approved by the U. S. Food and Drug Administration. Note for decalcified specimens: This assay has not been validated on decalcified tissues. Results should be interpreted with caution given the possibility of false negativity on decalcified specimens Rian Flores DO LAB PATHOLOGY ORDERABLES Final Result PATHOLOGY [facility] [address] [place] [address] * SCAN - [employer] (01/13/2025) us Provider Scanning Final Result * CT Abdomen and Pelvis Enterography W Contrast (01/02/2025 4:16 PM CERTIFIED ADDICTION COUNSELOR) Anatomical Region Laterality Modality Abdomen N/A Computed Tomogra phy 01/03/2025 10:2 5 AM CERTIFIED ADDICTION COUNSELOR Impressions 01/03/2025 10:25 AM CERTIFIED ADDICTION COUNSELOR No evidence of inflammatory bowel disease. Electronically signed by: Florian Lopez II, D.O. Narrative 01/03/2025 10:25 AM CERTIFIED ADDICTION COUNSELOR EXAMINATION: CT ENTEROGRAPHY W CONTRAST DATE: 01/02/2025 [...] Advance Directives For more information, please contact: [phone] * Full Code (Latest Code Status on File) Date Activated Date Inactivated Comments 02/23/2025 10:31 AM 02/23/2025 5:22 PM * Full Code Date Activated Date Inactivated Comments 02/23/2025 10:31 AM 02/23/2025 10:31 AM Care Teams Applications Architect Relationship Specialty Start Date End Date Rachelle, Niya A., STAGE SETTING PAINTER APPRENTICE [address] [address] PCP - General Family Medicine 02/22/25 Nicky Woodard, PT Physical Therapist Physical Therapy 11/05/17 Kelsea Reyes, PT Physical Therapist Physical Therapy 12/03/17 Claude Alegria MD [address] [place] [address] [facility] [place] [address] Consulting Physician Neurology 12/07/17 Teo Reyes, PT Physical Therapist Physical Therapy 02/25/23
--- OUTSIDE RECORDS SUMMARY | 2025-04-01 11:10 | XMS_ITS | Encounter Summary ---
Author Organization [facility] Address [address] [place] [address] Care Team Providers Care Reconciling Clerk Name Role Phone Alie Stack CHARGE RN-WINDOW TINTER Primary Care Provider Reason for Visit * Reason Onset Date Comments Bladder Problem 10/18/2019 Encounter Details Date Type Department Care Team (Late st Contact Info) Description 10/18/2019 Telephone [facility] - KENNEL ASSISTANT [address] [address] Diana Hartman MD [facility] [address] [address] Bladder Problem Social History Tobacco Use Types [...] on file Legal Sex Female 6:27 AM DELIVERY AGENT Gender Identity Not on file Sexual Orientation [...] is r/t to her bladder per Ms. Mgaaña. Pt reports sharp pelvic pains and constant urination. Offered her a new pt appt today at 100 ( r/t cancellation). Agrees to be here early to complete new pt paperwork. Jeffry'michell w/ Dr Hartman. VERY AGENT * Telephone Encounter - Terra Worrell - 10/18/2019 11:03 AM CST Pt calling to speak to the nurse regarding bladder pain VERY AGENT documented in this encounter Plan of Treatment Not on file documented as of this encounter Visit Diagnoses Not on filedocumented in this encounter Additional Health Concerns Infection Onset Date Last Indicated Resolved Time COVID-19 Under Investigation 05/15/2020 05/15/2020 05/16/2020 2:18 PM CDT COVID-19 Under Investigation 08/03/2023 08/03/2023 08/04/2023 2:45 AM CDT documented as of this encounter Care Teams Reconciling Clerk Relationship Specialty Start Date End Date Alie Stack, CHARGE RN-WINDOW TINTER [address] [facility] [address] Barney [address] [place] [address] [phone] PCP - General 11/19/21 documented as of this encounter
--- OUTSIDE RECORDS SUMMARY | 2025-04-01 11:10 | XMS_ITS | Clinical Summary ---
Author Organization [facility] Address [address] [facility] [place] [address] Care Team Providers Care Build Technician Name Role Phone Alie Stack BICYCLE RENTAL CLERK-MANAGER OF PLANNING Primary Care Provider Source Comments [facility],non-owned Affiliates and Associated Physician Practices is amultiple site organization consisting of ambulatory clinics and hospital sitesin [place], [place], [place] and [place]. This disclosure is being madepursuant to the Care Everywhere program and may not contain all information available regarding this patient. Last updated 18.[facility] Allergies Active Allergy Reactions Criticality Noted Date [...] on file Legal Sex Female 6:27 AM CITRUS PICKER Gender Identity Not on file Sexual Orientation [...] 70.3 kg (155 lb) 09/07/2024 11:13 AM CITRUS PICKER Height 162.6 cm (5' 4) 09/07/2024 11:13 AM CITRUS PICKER Body Mass Index 26.61 09/07/2024 11:13 AM CITRUS PICKER Plan of Treatment Health Maintenance Due Date [...] SCREEN W JUAN Routine 09/07/2024 11:14 AM CITRUS PICKER Encounter for screening mammogram for breast cancer COMPREHENSIVE METABOLIC PANEL STAT 08/03/2023 8:01 PM CDT from Last 3 Months or Most Recently Relevant to Health Maintenance Results * MAMMO BILAT IMPLANT SCREEN W JUAN (09/07/2024 11:14 AM CITRUS PICKER) Anatomical Region Laterality Modality Breast Bilateral Mammography 09/07/2024 12:5 9 PM CITRUS PICKER Impressions 09/07/2024 1:01 PM CITRUS PICKER IMPRESSION: There is no mammographic evidence of malignancy. OVERALL FINAL ASSESSMENT: BI-RADS Category 1: Negative. Annual screening mammography is recommended. > Interpreting Provider: Sully Bacon MD on 09/07/2024 1:01 PM Narrative 09/07/2024 1:01 PM CITRUS PICKER EXAMINATION: BILATERAL DIGITAL SCREENING MAMMOGRAM AND BILATERAL [...] - 55 U/L 08/03/2023 9:11 PM CDT [facility] AST 16 5 - 34 U/L 08/03/2023 9:11 PM CDT [facility] Protein Total 7.5 6.4 - 8.3 gm/dL 08/03/2023 9:11 PM CDT [facility] Albumin 4.1 3.4 - 5.0 gm/dL 08/03/2023 9:11 PM CDT [facility] Bilirubin Total 0.5 0.2 - 1.2 mg/dL 08/03/2023 9:11 PM CDT [facility] eGFR by CKD-EPI 90 >=90 mL/min/1.7 3 m2 08/03/2023 9:11 PM CDT [facility] Blood BLOOD SPECIMEN / Unknown Venipuncture / Unknown 08/03/2023 8:01 PM CDT 08/03/2023 8:56 PM CDT Kalani Del Toro PA-C LAB - CHEMISTRY ORDERABLES Fi nal Result [facility] [id number] [place] [id number] from Last 3 Months or Most Recently Relevant to Health Maintenance Advance Directives * Full Code (Latest Code Status on File) Date Activated Date Inactivated Comments 04/13/2021 10:27 PM 04/14/2021 11:38 AM Care Teams Build Technician Relationship Specialty Start Date End Date Alie Stack, BICYCLE RENTAL CLERK-MANAGER OF PLANNING [address] [facility] [address] Barney [address] [place] [address] [phone] PCP - General 11/19/21
--- OUTSIDE RECORDS SUMMARY | 2025-04-01 11:10 | XMS_ITS | CONTINUITY OF CARE DOCUMENT ---
Author Name marion schultz Address Unknown Organization [facility] Address [address] [place] [address] Phone [phone] Care Team Providers Care Bead Flipper Name Role Phone Dov Macario DO Unavailable [...] - Dov Macario DO Leukopenia to see data steward. completed - Dov Macario DO Syncope vasovagal [...] 0 In-person encounter Office Visit Dov Presleyon Reanldo [place] [facility] Cardiology examination 9 - 9 In-person encounter Office Visit Dov Presleyon Renaldo DO [facility] 9 - 9 In-person encounter Office Visit Dov Macario DO [facility] Office Leukopenia to see hematologi . 2 - 2 In-person encounter Office Visit Dov Macario DO [facility] 8 - 8 In-person encounter Office Visit Dov Macario DO [facility] Chest pain-type to be determined 9 - 7 In-person encounter Office Visit Allan Pagan Office 1 - 1 In-person encounter Office Visit Dov Macario DO [facility] 5 - 5 In-person encounter Office Visit Dov Macario DO [facility] Office 1 - 1 In-person encounter Office Visit Dov Macario DO [facility] DizzinessChest pain-type to be determined 9 - 9 In-person encounter Office Visit Dov Macario DO [facility] 8 - 8 In-person encounter Office Visit Dov Macario DO [facility] Office Dyspnea on exertionChest mary ann n atypicalCarotid artery stenosis - bilateralHypercholesterolemia 6 - 6 In-person encounter Office Visit Dov Macario DO [facility] Syncope vasovagal seems likelyPalpitations 4 - 4 In-person encounter Office Visit Dov Guido Office Chest pain-type to be determinedClaudication Intermittent 5 - 5 In-person encounter Office Visit Dov Macario DO [facility] Family Hx heart disease VITAL SIGNS Date Observation Value Provider Body Mass Index (Ratio) 24.62 kg/m2 [facility] Barry Renaldo blood pressure, diastolic 73 mm[Hg] [facility], systolic 120 mm[Hg] Maggie [facility] oxygen saturation, oximetry 99 % [facility] pulse rate 66 /min [facility] respiratory rate E&M 12 /min [facility] weight E&M 139 [lb_av] [facility] height E&M 63 [in_i] [facility] blood pressure, cuff size regular chicho Worrell Body Mass Index (Ratio) 25.15 kg/m2 [facility] Barry Renaldo blood pressure, diastolic 70 mm[Hg] Li nkLogic blood pressure, systolic 104 mm[Hg] Delilah kLogic blood pressure, diastolic 70 mm[Hg] Luanne motta Jaramillo blood pressure, systolic 104 mm[Hg] Yoli sin Jaramillo blood pressure, cuff size regular Luanne arorae Jaramillo pulse rate 70 /min Redford Conrad s oxygen saturation, oximetry 98 % Janina Jaramillo weight E&M 142 [lb_av] Janina Conrad s height E&M 63 [in_i] Redford Conrad s Body Mass Index (Ratio) 26.04 kg/m2 [facility] Barry Renaldo [place] blood pressure, diastolic 75 mm[Hg] Anju Frey blood pressure, systolic 102 mm[Hg] [facility] pulse rate 62 /min [facility] oxygen saturation, oximetry 97 % [facility] respiratory rate E&M 16 /min [facility] blood pressure, cuff size regular [facility] weight E&M 147 [lb_av] [facility] height E&M 63 [in_i] [facility] Body Mass Index (Ratio) 27.63 kg/m2 [facility] blood pressure, diastolic 66 mm[Hg] An [facility] blood pressure, systolic 97 mm[Hg] Any pooja Max pulse rate 65 /min Radha Max oxygen saturation, oximetry 99 % Radha Max weight E&M 156 [lb_av] Radha Max blood pressure, cuff size large An marialuisa Max height E&M 63 [in_i] Radha Max Body Mass Index (Ratio) 27.81 kg/m2 [facility] blood pressure, diastolic 62 mm[Hg] Yenni nkLog blood pressure, systolic 94 mm[Hg] Delilah kLog blood pressure, cuff size regular [facility] blood pressure, diastolic 62 mm[Hg] Ke rri [facility] blood pressure, systolic 94 mm[Hg] Melania ri Jon oxygen saturation, oximetry 99 % Connie Jon respiratory rate E&M 14 /min Connie esparza pulse rate 74 /min Connie Suhail [facility] weight E&M 157 [lb_av] Connie Kimberleynenfe lder height E&M 63 [in_i] Connie Jang lder Body Mass Index (Ratio) 26.32 kg/m2 Allan Hancock MD blood pressure, diastolic 60 mm[Hg] Polly Zayas blood pressure, systolic 110 mm[Hg] Nelly Zayas oxygen saturation, oximetry 98 % Raji Zyaas respiratory rate E&M 16 /min Floridalma Zayas pulse rate 86 /min Raji Edouard nssebastian weight E&M 148.6 [lb_av] Rjai sommerson height E&M 63 [in_i] Raji Edouard nson Body Mass Index (Ratio) 26.04 kg/m2 Pramichell Leera DO blood pressure, diastolic 54 mm[Hg] Li nkLogic blood pressure, systolic 92 mm[Hg] Delilah kLogic blood pressure, resting No Rey ty [place] blood pressure, cuff size regular Kr isty Jose E weight E&M 147 [lb_av] Corazon Jose E respiratory rate E&M 18 /min Corazon [place] pulse rate 67 /min Corazon Jose E blood pressure, diastolic 54 mm[Hg] Kr isty [place] blood pressure, systolic 92 mm[Hg] Kri sty Jose E oxygen saturation, oximetry 99 % Corazon Jose E height E&M 63 [in_i] Corazon Jose E Body Mass Index (Ratio) 22.49 kg/m2 April Reddy Renaldo DO blood pressure, cuff size regular Kr isty [place] blood pressure, diastolic 60 mm[Hg] Kr isty [place] blood pressure, systolic 100 mm[Hg] Kri sty [place] pulse rate 87 /min Corazon oxygen saturation, oximetry 100 % Corazon respiratory rate E&M 19 /min Corazon weight E&M 127 [lb_av] Corazon height E&M 63 [in_i] Corazon Body Mass Index (Ratio) 21.61 kg/m2 [facility] Barry Macario weight E&M 122 [lb_av] [facility] height E&M 63 [in_i] [facility] Body Mass Index (Ratio) 23.03 kg/m2 [facility] Barry [facility] blood pressure, diastolic 70 mm[Hg] Jerry Northby blood pressure, systolic 102 mm[Hg] Jasmyne dario oxygen saturation, oximetry 95 % Corazon respiratory rate E&M 16 /min Corazon pulse rate 58 /min Corazon blood pressure, cuff size regular Jerry sanford weight E&M 130 [lb_av] Corazon height E&M 63 [in_i] Corazon Body Mass Index (Ratio) 23.38 kg/m2 [facility] Barry [facility] pulse rate 57 /min Alexei [facility] oxygen saturation, oximetry 98 % Alexei Rodriguez blood pressure, diastolic 58 mm[Hg] Chaz Rodriguez blood pressure, systolic 94 mm[Hg] Rhiannon Rodriguez blood pressure, resting No Rhiannonr martha Rodriguez respiratory rate E&M 16 /min Alexei Rodriguez height E&M 63 [in_i] Alexei [facility] weight E&M 132 [lb_av] Alexei Mayers [...] LinkLogic 3.5-5.2 sodium, serum 141 mmol/L LinkLogic [phone]/03/ 16 urea nitrogen/creatinine ratio, serum 18 LinkLogic [...] Not Estab. platelet count 235 X10E3/UL LinkLogic [phone]/03/ 15 red blood cell distribution width 12.3 [...] Filtration Rate (calc) 105 mL/min/{ 1.73_m2} [place] [address] cholesterol, non-HDL, total 95 mg/dL [facility] [address] HDL CHOLESTEROL 54 mg/dL LinkLogic >=40 Normal , [place] [address] triglyceride, serum, fasting 54 mg/dL LinkLogic <=149 Normal , [place] [address] cholesterol, serum 149 mg/dL LinkLogic 30-199 Normal , [place] [address] aspartate aminotransferase (SGOT), serum 30 1/L LinkLogic 10-45 Normal [place] [address] alanine aminotransferase (SGPT), serum 30 1/L LinkLogic 7-45 Normal , [place] [address] Alkaline phosphatase 62 LinkLogic 40-130 Normal C, [place] [address] albumin, serum 4.3 g/dL LinkLogic 3.5-5.0 Normal [place] [address] protein, total, serum 7.3 g/dL LinkLogic 6.5-8.5 Normal [place] [address] bilirubin, serum, total 0.4 mg/dL LinkLogic 0.1-1.2 Normal [place] [address] calcium, serum 8.4 mg/dL LinkLogic 8.5-10.3 Low C, [place] [address] blood glucose, random 107 mg/dL LinkLogic 70-199 Normal , [place] [address] creatine, serum 0.66 mg/dL LinkLogic 0.60-1.10 Normal C, [place] [address] urea nitrogen, blood 11 mg/dL LinkLogic 8-25 Normal C, [place] [address] anion gap, serum 12 mmol/L LinkLogic 2-15 Normal C, [place] [address] carbon dioxide, venous blood 20 mmol/L LinkLogic 22-32 Low C, [place] [address] chloride, serum 105 mmol/L LinkLogic 97-110 Normal , [place] [address] potassium, serum 4.3 MMOL/L LinkLogic 3.3-4.9 Normal , [place] [address] sodium, serum 137 mmol/L LinkLogic 135-145 Normal C, [place] [address] thyroid stimulating hormone, serum 1.40 MCIUNIT/ ML LinkLogic 0.30-4.20 Normal , [place] [address] Absolute Basophils 0.0 K/CUMM LinkLogic 0.0-0.1 Normal , [place] [address] Absolute Monocytes 0.4 K/CUMM LinkLogic 0.2-0.8 Normal , [place] [address] Absolute Lymphocytes 1.1 K/CUMM LinkLogic 0.8-3.3 Normal , [place] [address] Absolute Neutrophils 2.5 K/CUMM LinkLogic 1.7-6.5 Normal C, [place] [address] nucleated red blood cells as percent of [...] Rate (calc) 108 mL/min/{ 1.73_m2} LinkLogic C, [place] [address] cholesterol, non-HDL, total 102 mg/dL LinkLogic C, [place] [address] HDL CHOLESTEROL 63 mg/dL LinkLogic >=40 Normal , [place] [address] triglyceride, serum, fasting 51 mg/dL LinkLogic <=149 Normal C, [place] [address] cholesterol, serum 165 mg/dL LinkLogic 30-199 Normal , [place] [address] aspartate aminotransferase (SGOT), serum 17 1/L LinkLogic 10-45 Normal C, [place] [address] alanine aminotransferase (SGPT), serum 21 1/L LinkLogic 7-45 Normal C, [place] [address] Alkaline phosphatase 66 LinkLogic 40-130 Normal C, [place] [address] albumin, serum 4.3 g/dL LinkLogic 3.5-5.0 Normal C, [place] [address] protein, total, serum 7.1 g/dL LinkLogic 6.5-8.5 Normal , [place] [address] bilirubin, serum, total 0.9 mg/dL LinkLogic 0.1-1.2 Normal , [place] [address] calcium, serum 8.4 mg/dL LinkLogic 8.5-10.3 Low C, [place] [address] blood glucose, random 102 mg/dL LinkLogic 70-199 Normal , [place] [address] creatine, serum 0.62 mg/dL LinkLogic 0.60-1.10 Normal , [place] [address] urea nitrogen, blood 12 mg/dL LinkLogic 8-25 Normal C, [place] [address] anion gap, serum 12 mmol/L LinkLogic 2-15 Normal C, [place] [address] carbon dioxide, venous blood 22 mmol/L LinkLogic 22-32 Normal C, [place] [address] chloride, serum 105 mmol/L LinkLogic 97-110 Normal C, [place] [address] potassium, serum 4.1 MMOL/L LinkLogic 3.3-4.9 Normal C, [facility] [address] [facility] [address] sodium, serum 139 mmol/L LinkLogic 135-145 Normal C, [address] [address] lipoprotein, beta, serum, point, quantitative, calculated 135 [...] LinkLogic 3.5-5.2 sodium, serum 137 mmol/L LinkLogic [phone]/04/ 17 urea nitrogen/creatinine ratio, serum 14 LinkLogic [...] smoker Eleanor sims smoking status Never smoker oCrazon Dorantes smoking status Never smoker Alexei Gracie simeon FAMILY HISTORY Family Member Condition Father Family History of Co ronary Artery Disease: Mother Family History of Re nal Disease: Mother Family History of Hy pertension: INSURANCE PROVIDERS Payer name Policy type / Coverage type Perry red libertarian ID [employer] Commercial insurance co [place] [facility] [id number] [facility] Medicaid 1 [id number] ADVANCE DIRECTIVES Name Date DISCUSSED - NO DECISION MADE TREATMENT PLAN Date Name Performer [id number],C, L DL 135 Trigs 73 in . L abs 03/23: chem ok, LDL 92 Trigs 51 r echeck in this upcoming march range g oal LDL < 70 Her updated medication list for this problem includes: Rosuvastatin 20 Mg Tablet (Rosuvastatin) ..... Take 1 tablet by mouth once a day Dov Barry Renaldo [place] [id number],C, m oderate bilateral 02/2020 c ta denied r epeat duplex moderate ica dz bilaterally r epeat in Carotid duplex 02/21 moderate LICA stenosis. a spirin o n statin Dov Macario DO [id number],C, n ormal telesentry i advised her to decrease caffeine intake. H er updated medication list for this problem includes: Aspirin 81 Mg Tablet,delayed Release (dr/ec) (Aspirin) ..... 1 tablet by mouth once a day Dov Macario DO [id number],C, n ormal telesentry i advised her to decrease caffeine intake. H er updated medication list for this problem includes: Aspirin 81 Mg Tablet,delayed Release (dr/ec) (Aspirin) ..... 1 tablet by mouth once a day Dov Macario [id number],C,L DL 135 Trigs 73 in 21. H er updated medication list for this problem includes: Rosuvastatin 20 Mg Tablet (Rosuvastatin) ..... 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 a spirin o n statin Dov Barrysebastian Macario DO [id number],B, n ormal telesentry last month i advised her to decrease caffeine intake. H er updated medication list for this problem includes: Aspirin 81 Mg Tablet,delayed Release (dr/ec) (Aspirin) ..... 1 tablet by mouth once a day Allan Hancock MD [id number],B, n ormal telesentry last month i advised her to decrease caffeine intake. Allan Hancock MD [id number],C, m oderate bilateral 02/2020 c ta denied r epeat duplex 21 moderate ica dz bilaterally per Dr Macario r epeat in a spirin o n statin Allan Hancock MD [id number],C, H er updated medication list for this problem includes: Rosuvastatin 20 Mg Tablet (Rosuvastatin) ..... Take 1 tablet by mouth once a day Allan Hancock MD [id number],C, R derrickiewed her past testing including negative [...] mouth once a day Allan Hancock MD [id number],C, t gab in 02/2020 was nml, nsr h aving more palps Dov Macario DO [id number],C, m oderate bilateral 02/2020 c ta denied r epeat duplex 21 moderate ica dz bilaterally r epeat in a spirin o n statin Dov Macario DO [id number],C, L abs 08/21 LDL 91, Trigs 47 [...] g oal LDL < 70 [facility] she is interested. has first degree [...] score c ont aspirin s tatin s elio family history of heart dz Dov Macario [...]
--- OUTSIDE RECORDS SUMMARY | 2025-04-01 11:10 | XMS_ITS | Encounter Summary ---
Author Organization [facility] Health Address [address] [place] [address] Care Team Providers Care Adult Ministries Director Name Role Phone Alie Stack GENETIC TECHNOLOGIST-TORTILLA MAKER Primary Care Provider Encounter Details Date Type Department Care Team (Late st Contact Info) Description 08/04/2018 [facility] Outpatient Visit [facility] [address] [place] [address] [place] [address] [address] Social History Tobacco Use Types [...] documented as of this encounter Care Teams Adult Ministries Director Relationship Specialty Start Date End Date Alie Stack, GENETIC TECHNOLOGIST-TORTILLA MAKER [address] [facility] [address] Barney [address] [place] [phone] PCP - General 11/19/21 documented as of this encounter
--- OUTSIDE RECORDS SUMMARY | 2025-04-01 11:10 | XMS_ITS | Clinical Summary ---
Author Organization [facility] Address [address] [facility] [place] [address] Phone Care Team Providers Care Cctv Technician Name Role Phone Mario Alberto Bernstein DPM Unavailable [phone] Niya Bush APRN, ENTERPRISE SYSTEMS ADMINISTRATOR Primary Care Provider Allergies Active Allergy Reactions [...] Comments Blood Pressure 110/64 10/31/2024 4:30 PM TELECOM ENGINEER Pulse 65 10/31/2024 4:30 PM TELECOM ENGINEER Temperature 37 C (98.6 F) 10/31/2024 4:30 PM TELECOM ENGINEER Respiratory Rate 16 10/31/2024 4:30 PM TELECOM ENGINEER Oxygen Saturation 100% 10/31/2024 4:30 PM TELECOM ENGINEER Inhaled Oxygen Concentration - - Weight 63 kg (139 lb) 10/31/2024 12:03 PM TELECOM ENGINEER Height 157.5 cm (5' 2) 10/31/2024 12:03 PM TELECOM ENGINEER Body Mass Index 25.42 10/31/2024 12:03 PM TELECOM ENGINEER Plan of Treatment Health Maintenance Due Date [...] ID:Not on file Type:Not on file Address: [address] Care Teams Cctv Technician Relationship Specialty Start Date End Date Niya Bush APRN, ENTERPRISE SYSTEMS ADMINISTRATOR [address] [place] [address] PCP - General Advanced Practice Nurse 10/31/24 Mario Alberto Bernstein DPM Consulting Physician Podiatry 07/14/17
--- OUTSIDE RECORDS SUMMARY | 2025-04-01 11:10 | XMS_ITS | Clinical Summary ---
Author Organization [employer] [place] Address [address] [place] [address] Care Team Providers Care Milling Planer Operator Name Role Phone Unavailable Primary Care [...] on file Legal Sex Female 4:15 AM PIGMENT PUSHER Gender Identity Not on file Sexual Orientation Not on file Occupation Industry Job Start Date Job End Date Not on file Not on file Not on file Not on file Not on file Not on file Not on file Not on file Last Filed Vital Signs Vital Sign Reading Time Taken Comments Blood Pressure 101/63 10/07/2024 5:12 PM PIGMENT PUSHER Pulse 76 10/07/2024 5:12 PM PIGMENT PUSHER Temperature 36.6 C (97.9 F) 10/07/2024 5:12 PM PIGMENT PUSHER Respiratory Rate 16 04/11/2024 12:31 PM CDT Oxygen Saturation 99% 10/07/2024 5:12 PM PIGMENT PUSHER Inhaled Oxygen Concentration - - Weight 63.5 kg (140 lb) 10/07/2024 5:12 PM PIGMENT PUSHER Height 157.5 cm (5' 2) 10/07/2024 5:12 PM PIGMENT PUSHER Body Mass Index 25.61 10/07/2024 5:12 PM PIGMENT PUSHER Plan of Treatment Health Maintenance Due Date [...] 06/18/2023, 11/01/2022 Colorectal Cancer Screening 06/18/2033 Insurance [facility] CHOICE [id number] * Guarantor: OLD ACCT-OCC MED [facility] (OM) Account Type Relation to Patient Date of Phone Billing Address Corporate Other [id number] [place] [address] [id number]
[2025-04-06 15:13] LABS: Calprotectin, Stool. 15 mcg/g
[2025-04-07 00:33] LABS: Pancreatic Elastase, Stool. 532 mcg/g (>200)
== END 2025-04-01 11:08 | disposition home or self-care (01) ==
LOC: ANHLAB 11:07
PROVIDERS: PCP Nurse Practitioner Family; Visit Provider Nurse Practitioner Family
DX: R10.9 Unspecified abdominal pain (principal); R19.4 Change in bowel habit
CPT/HCPCS: 82653; 83993; 87045; 87427; 87449

== ENCOUNTER 2025-04-20 07:38 | Outpatient (CLI) | payer MEDICAID, SELFPAY ==
--- NOTE | ~2025-04-20 | NM_ITS ---
EXAMINATION: NM hepatobiliary w pharm DATE: 04/20/2025 09:50 INDICATION: Generalized abdominal pain COMPARISON: None. TECHNIQUE: 4.8 mCi Tc-99m mebrofenin (Choletec) was administered intravenously. Scintigraphic images of the abdomen were obtained for one hour. 1.25 mcg sincalide (Kinevac) was administered by slow int ravenous infusion, and imaging was continued for 30 minutes. Gallbladder ejection fraction was calcul ated by the technologist. FINDINGS: There is normal clearance of radiotracer from the blood pool. There is homogeneous tracer uptake by t he liver. Activity progresses to the gallbladder and bowel. The gallbladder ejection fraction (GBEF) is 82% (normal 10-90%, but most patient with gallbladder dysfunction have GBEF < 35% which does over lap with the normal range). IMPRESSION: 1. Normal hepatobiliary scan Reviewed, dictated and finalized at location B.
--- OUTSIDE RECORDS SUMMARY | 2025-04-20 07:40 | XMS_ITS | Encounter Summary ---
Author Organization [employer] Address 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
--- OUTSIDE RECORDS SUMMARY | 2025-04-20 07:40 | XMS_ITS | Referral Summary ---
Author Organization [facility] Address [address] [place] [address] Care Team Providers Care Assembler Dielectric Heater Name Role Phone Nicky Woodard PT Unavailable Unavailable Kelsea Reyes PT Unavailable Unavailable Claude Alegria MD Unavailable [phone] Teo Reyes PT Unavailable Unavailable Niya Bush NP Primary Care Provider [phone] Encounters Date Type Department Care Team Description 04/06/20 Orders Only [facility] [address] [place] [address] Genaro Ramires RN 03/27/20 6:40 PM CDT - 03/27/20 9:56 PM CDT Emergency [facility] Emergency Department [address] [place] [phone] Lisa Frances MD Abdominal pain, generalized (Primary Dx); Enteritis Discharge Disposition: Discharge to home or self care 03/18/20 10:44 AM CDT - 03/18/20 11:59 PM CDT Hospital Encounter [facility] [address] [place], [place] [id number] Pelvic and perineal pain Discharge Disposition: Discharge to home or self care 02/29/20 Results Follow-Up [facility] Gastroenterology at [place] [address] [facility] [address] [place] [phone] Rian Flores DO Surgical pathology 02/24/20 11:40 AM CDT - 02/24/20 25 12:20 PM CDT Surgery [address] [address] Rian Flores, DO ESOPHAGOGASTRODUODENOSCOPY BIOPSY 02/24/20 11:37 AM CDT Anesthesia Event [address] [address] Mariangel Voss MD Zirkelbach, Cecilia A., CRNA 02/24/20 25 10:29 AM CDT - 02/24/20 1:17 PM CDT Hospital Encounter [address] [address] Rian Flores, Gastroesophageal reflux disease, unspecified whether esophagitis present; Abdominal pain Discharge Disposition: Discharge to home or self care 02/22/20 25 Telephone [facility] Gastroenterology at [address] [place] [address] Suzy Herrera 02/11/20 25 Telephone [facility] Gastroenterology at [address] [place] [address] Suzy Herrera from Last 3 Months Allergies Active Allergy [...] Active Problems Problem Noted Date Diagnosed Date Iron deficiency anemia, unspecified 04/06/2025 Lumbar facet arthropathy 02/16/2024 Statin intolerance 12/21/2023 [...] 2000 IU daily - Start vitamin D 00840 IU weekly Bilateral carotid artery stenosis 06/22/2023 Neurological symptoms 06/22/2023 Encounter for screening for malignant neoplasm o f colon 04/24/2023 Abdominal pain 04/24/2023 Pharyngoesophageal dysphagia 02/24/2023 Prediabetes 01/19/2023 Overview (01/19/2023): at goal and unlikely to be contributing Assessment & Plan (12/21/2023 2:39 PM COMPLIANCE TESTING ANALYST): Lab Results Component Value Date HGBA1C 5.4 12/03/2023 HGBA1C 5.7 (H) 11/04/2022 HGBA1C 5.4 10/14/2017 Lab Results Component Value Date LDLCALC 158 (H) 12/03/2023 CREATININE 0.80 12/03/2023 Stable continue same regimen Assessment & Plan (12/03/2023 3:07 PM COMPLIANCE TESTING ANALYST): Lab Results Component Value Date HGBA1C 5.7 (H) 11/04/2022 HGBA1C 5.4 10/14/2017 Lab Results Component Value Date LDLCALC 84 11/04/2022 CREATININE 0.71 11/25/2023 Stable continue same regimen Assessment & Plan (10/15/2023 3:12 PM COMPLIANCE TESTING ANALYST): Lab Results Component Value Date HGBA1C 5.7 [...] 12/02/2022 Assessment & Plan (12/02/2022 4:53 PM COMPLIANCE TESTING ANALYST): Not quite at goal - states that she knows what triggers it Mixed hyperlipidemia 08/26/2022 Assessment & Plan (12/21/2023 2:39 PM COMPLIANCE TESTING ANALYST): Lab Results Component Value Date CHOL 245 [...] 08/26/2022 Assessment & Plan (12/21/2023 2:27 PM COMPLIANCE TESTING ANALYST): Worsening sx Was not called by pain mgmt Will place new referral Assessment & Plan (12/02/2022 4:54 PM COMPLIANCE TESTING ANALYST): Not at goal at this time - has tried gabapentin previously with no improvement Pain in joints of both feet 10/29/2020 Nausea 09/03/2020 Fatigue 09/03/2020 Plantar fasciitis 11/10/2019 S/P total hysterectomy 07/12/2019 Mass of left breast 11/13/2017 Numbness and tingling of left upper extremity 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 GERD (gastroesophageal reflux disease) 4 Assessment & Plan (12/03/2023 3:08 PM COMPLIANCE TESTING ANALYST): New sx Likely gerd Start omeprazole 40 [...] on file Legal Sex Female 12:33 PM COMPLIANCE TESTING ANALYST Gender Identity Not on file Sexual Orientation [...] disease, unspecified whether esophagitis present Abdominal pain from Last 3 Months Results * (ABNORMAL) Urinalysis reflex to microscopic and culture Urine (03/27/2025 9:12 PM CDT) Color, ur Straw Yellow Comment:Testing performed by : [address], [place] [address] Clarity, ur Clear Clear [facility] Comment:Testing performed by : [facility] [address], [place] [address] Specific gravity, ur >1.050(A) 1.003 - 1.030 [facility] Comment:Testing performed by : [facility] [address], [place] [address] pH, urine 7.0 [facility] Comment: Interpretive Data U rine pH is affected by diet, medications, systemic acid-base disturbances, and renal tubular function. pH may affect urinary stone formation. For example, urine pH below 6.0 may help reduce the tendency for calcium phosphate stones and pH greater than 6.0 may reduce the tendency for uric acid stone formation. Source: [employer] Current Interpretive Data was last revised on 2017 Testing performed by: [facility], [address] [place] [address] Protein, ur ql Negative Negative [facility] Comment:Testing performed by : [facility], [address] [address] Glucose, ur ql Negative Negative [facility] Comment:Testing performed by : [facility], [place] [address] Ketones, ur Negative Negative [facility] Comment:Testing performed by : [facility], [address] [address] Bilirubin, ur Negative Negative [facility] Comment:Testing performed by : [facility], [place] [address] Blood, ur Negative Negative [facility] Comment:Testing performed by : [facility], [address] [address] Urobilinogen, ur <2.0 <2.0 mg/dL [facility] Comment:Testing performed by : [facility], [place] [address] Nitrite, ur Negative Negative [facility] Comment:Testing performed by : [facility], [place] [address] Leukocyte esterase, ur Negative Negative [facility] Comment:Testing performed by : [facility], [address] [place] [address] UA reflex comment Reflex conditions for microscopic UA and culture not met. [facility] Comment:Testing performed by : [facility] [place] [address] Urine 03/27/2025 9:12 PM CDT 03/27/2025 9:14 PM CDT Lisa Frances MD LAB MICROBIOLOGY - GENE RAL ORDERABLES Final Result [facility] [address] Department [place] [address] * CT Abdomen Pelvis W Contrast (03/27/2025 8:29 PM CDT) Anatomical Region Laterality Modality Body N/A Computed Tomogra phy 03/27/2025 8:23 PM CDT Impressions 03/28/2025 8:15 AM CDT NO ACUTE INTRA-ABDOMINAL FINDINGS Stat report by [facility] Electronically signed by: Mike Alvarado M.D. Narrative [...] NO ACUTE INTRA-ABDOMINAL FINDINGS Stat report by [facility] Electronically signed by: Mike Alvarado M.D. Lisa [...] was last reviewed 2021. Testing performed by: [facility], [facility] [address], [place] [address] Blood 03/27/2025 7:28 PM CDT 03/27/2025 7:46 PM CDT us Cliff Grier MD LAB BLOOD ORDERABLES Fin al Result [facility] [address] Department [place] [address] * Differential, auto (03/27/2025 7:28 PM CDT) Pathologist [facility] Neutrophil abs 2.62 1.50 - 6.50 K/cumm Comment:Testing performed by : [facility], [facility] [address], [place] [address] Imm gran abs 0.01 0.00 - 0.10 K/cumm [facility] Comment:Testing performed by : [facility], [facility] [address], [place] [address] Lymphocyte abs 1.44 0.80 - 3.30 K/cumm [facility] Comment:Testing performed by : [facility], [facility] [address], [place] [address] Monocyte abs 0.60 0.20 - 0.80 K/cumm [facility] Comment:Testing performed by : [place] [address], [place] [address] Eosinophil abs 0.01 0.00 - 0.50 K/cumm [facility] Comment:Testing performed by : [facility], [facility] [address], [place] [address] Basophil abs 0.02 0.00 - 0.10 K/cumm [facility] Comment:Testing performed by : [address], [place] [address] Neutrophil pct 55.8 % [facility] Comment: Interpretive Data Percent cell count reference ranges are not reported, since discordance with absolute values may lead to misinterpretation of CBC data. Current Interpretive Data was last revised on 2018. Testing performed by: [facility], [facility] [address], [place] [address] Imm gran pct 0.2 % [facility] Comment: Interpretive Data Percent cell count reference ranges are not reported, since discordance with absolute values may lead to misinterpretation of CBC data. Current Interpretive Data was last revised on 2018. Testing performed by: [address], [place] [address] Lymphocyte pct 30.6 % [facility] Comment: Interpretive Data Percent cell count reference ranges are not reported, since discordance with absolute values may lead to misinterpretation of CBC data. Current Interpretive Data was last revised on 2018. Testing performed by: [facility], [facility] [address], [place] [address] Monocyte pct 12.8 % [facility] Comment: Interpretive Data Percent cell count reference ranges are not reported, since discordance with absolute values may lead to misinterpretation of CBC data. Current Interpretive Data was last revised on 2018. Testing performed by: [facility] [address], [place] [address] Eosinophil pct 0.2 % [facility] Comment: Interpretive Data Percent cell count reference ranges are not reported, since discordance with absolute values may lead to misinterpretation of CBC data. Current Interpretive Data was last revised on 2018. Testing performed by: [facility] [address], [place] [address] Basophil pct 0.4 % C[facility]ER Comment: Interpretive Data Percent cell count reference ranges are not reported, since discordance with absolute values may lead to misinterpretation of CBC data. Current Interpretive Data was last revised on 2018. Testing performed by: [facility] [address], [place] [address] Blood 03/27/2025 7:28 PM CDT 03/27/2025 7:46 PM CDT Cliff Grier MD LAB BLOOD ORDERABLES Fin al Result [facility] [address] [address] Department of Laboratories [place], [place] [id number] * CBC with auto differential (03/27/2025 7:28 PM CDT) WBC 4.70 3.80 - 9.90 K/cumm Comment:Testing performed by : [facility] [address], [place] [address] Hgb 13.0 11.9 - 15.5 g/dL CERNER Comment:Testing performed by : [facility] [address], [place] [address] Hct 36.7 35.6 - 45.5 % [facility]ER Comment:Testing performed by : [facility], [place] [address] Plt 255 150 - 400 K/cumm ALEXANDREANER Comment:Testing performed by : [facility] [address], [place] [address] MPV 9.2 9.1 - 12.3 fL CERNER Comment:Testing performed by : [facility] [address], [place] [address] RBC 3.90 3.90 - 5.20 M/cumm CERNER Comment:Testing performed by : [facility], [facility] [place] [address] MCV 94.1 81.3 - 96.4 fL CERNER Comment:Testing performed by : [facility], [address] [place], [place] [address] MCH 33.3 27.1 - 33.3 pg [facility] Comment:Testing performed by : [facility], [facility] [address] [place], [place] [address] MCHC 35.4 32.3 - 35.7 g/dL [facility] Comment:Testing performed by : [facility], [facility] [place] [address] RDW CV 11.6 11.1 - 14.9 % CERNER Comment:Testing performed by : [facility], [facility] [place] [address] RDW SD 39.7 35.7 - 48.1 fL CERNER Comment:Testing performed by : [facility] [place] [address] NRBC abs 0.00 0.00 - 0.01 K/cumm ALEXANDREANER Comment:Testing performed by : [facility], [facility] [place] [address] Blood Venous blood specimen / Unknown 03/27/2025 7:28 PM CDT 03/27/2025 7:46 PM CDT Lisa Frances MD LAB BLOOD ORDERABLES Fi nal Result Performing Organization Address City/State/[facility] Co de Phone Number [facility] [address] [address] Department [place] [address] * Lipase (03/27/2025 7:28 PM CDT) Lipase 20 10 - 99 Units/L Comment:Testing performed by : [facility] [place] [address] Blood Venous blood specimen / Unknown 03/27/2025 7:28 PM CDT 03/27/2025 7:46 PM CDT Lisa Frances MD LAB BLOOD ORDERABLES Fi nal Result [facility] [address] [address] Department [place] [address] * Comprehensive metabolic panel (03/27/2025 7:28 PM CDT) Sodium 138 135 - 145 mmol/L Comment:Testing performed by : [facility] [address], [place] [address] Potassium, pl 4.0 3.3 - 4.9 mmol/L CERNER Comment:Testing performed by : [facility] [address], [place] [address] Chloride 103 97 - 110 mmol/L CERNER Comment:Testing performed by : [facility] [address], [place] [address] CO2 24 22 - 32 mmol/L [facility] Comment:Testing performed by : [facility] [address], [place] [address] Anion gap 11 2 - 15 mmol/L [facility] Comment:Testing performed by : [facility] [address], [place] [address] BUN 13 6 - 25 mg/dL [facility]ER Comment:Testing performed by : [facility] [address], [place] [address] Creatinine 0.77 0.60 - 1.10 mg/dL [facility] Comment:Testing performed by : [facility] [address], [place] [address] Glucose 95 70 - 199 mg/dL [facility] Comment: Interpretive Data Fasting glucose >/= 126 [...] classification and Diagnosis of Diabetes Diabetes Care 202; 46: S19-S40. Current interpretive data was last revised 2022. Testing performed by: [facility] [address], [place] [address] Calcium 9.2 8.5 - 10.3 mg/dL [facility] Comment:Testing performed by : [facility] [address], [place] [address] Bilirubin, total 0.5 0.1 - 1.2 mg/dL [facility] Comment:Testing performed by : [facility] [address], [place] [address] Protein, pl 7.1 6.5 - 8.5 g/dL [facility] Comment:Testing performed by : [facility] [address], [place] [address] Albumin 4.3 3.5 - 5.0 g/dL [facility] Comment:Testing performed by : [facility] [address], [place] [address] Alk phos 73 40 - 130 Units/L [facility] Comment:Testing performed by : [facility] [address], [place] [address] ALT 23 7 - 45 Units/L [facility] Comment:Testing performed by : [facility] [address], [place] [address] AST 22 10 - 45 Units/L [facility] Comment:Testing performed by : [facility] [place] [address] Blood 03/27/2025 7:28 PM CDT 03/27/2025 7:46 PM CDT Lisa Frances MD LAB BLOOD ORDERABLES nal Result [facility] [address] [address] Department [place] [address] * POCT hCG, urine (03/27/2025 7:03 PM [...] post hysterectomy by history. Electronically signed by: Patriica Mai M.D. Mack Gambino MD IMG US PROCEDURES Adela l Result * EGD (02/23/2025 10:40 AM CDT) Anatomical Region Laterality Modality Other Narrative Procedure Note Rian Flores DO - 02/23/2025 10:40 AM CDT [facility] Patient Name: Andria Magaña Procedure Date: 02/23/2025 10:40 AM Date of : 1970 Admit Type: Outpatient Age: 54 Gender: Female Attending MD: Rian Flores D.O. Room: [facility] 3 Note Status: Finalized Patient Profile: Refer to note in patient chart for documentation of history and physical. Procedure: Upper GI endoscopy Indications: Follow-up of gastro-esophageal reflux disease Referring MD: Niya Bush, F.N.P. Providers: Rian Flores D.O. Impression: - Normal [...] passed under direct vision. The Endoscope GIF-H190 [id number] was introduced through the mouth, and advanced [...] 10:40 AM Procedure Code(s): --- Professional --- 06244, Esophagogastroduodenoscopy, flexible, transoral; with biopsy, single or multiple --- Technical --- 95995, Esophagogastroduodenoscopy, flexible, transoral; with biopsy, single or multiple Diagnosis Code(s): --- Professional --- K21.9, Gastro-esophageal reflux disease without esophagitis --- Technical --- K21.9, Gastro-esophageal reflux disease without esophagitis CPT copyright 2020 [employer]. All rights reserved. The codes documented in this report are preliminary and upon fence post cutter reviewmay be revised to meet current compliance requirements. Recognized by the [employer] for promoting quality in endoscopy Rian Flores DO ENDOSCOPY PROCEDURES Final Res ult * Colonoscopy (02/23/2025 10:38 AM CDT) Anatomical Region Laterality Modality Other Narrative Procedure Note Rian Flores, - 02/23/2025 10:38 AM CDT [facility] Patient Name: Andria Magaña Procedure Date: 02/23/2025 10:38 AM Date of : 1970 Admit Type: Outpatient Age: 54 Gender: Female Attending MD: Rian Flores D.O. Room: [facility] 3 Note Status: Finalized [...] under direct vision. The Pediatric Colonoscope [id number]-H190L [id number] was introducedthrough the anus and advanced to [...] 10:38 AM Procedure Code(s): --- Professional --- 12948, Colonoscopy, flexible; diagnostic, including collection of specimen(s) by brushing or washing, when performed (separateprocedure) --- Technical --- 06615, Colonoscopy, flexible; diagnostic, including collection of specimen(s) by brushing or washing, when performed (separateprocedure) Diagnosis Code(s): --- Professional --- R93.3, Abnormal findings on diagnostic imaging of other parts of digestive tract --- Technical --- R93.3, Abnormal findings on diagnostic imaging of other parts of digestive tract CPT copyright 2020 [employer]. All rights reserved. The codes documented in this report are preliminary and upon fence post cutter reviewmay be revised to meet current compliance requirements. Recognized by the [employer] for promoting quality in endoscopy us Rian Flores DO ENDOSCOPY PROCEDURES Final Res ult * Surgical pathology (02/23/2025 10:38 AM CDT) Tissue (Gastric/Stomach biopsy) 02/23/2025 12:00 PM CDT Narrative [facility] - 02/27/2025 3:41 PM CDT EPIC results best viewed via link to PDF [facility] Department of Pathology [address] [place] [id number] Note to Patients: This report may contain [...] Report Patient Name: ANDRIA MAGAÑA Address: [address], [place] [address] Gender: F : 1970 (Age: 54) Service: Gastro Location: [facility] Hospital #: [id number] Patient Type: [facility] Taken: 02/23/2025 Received: 02/24/2025 Accessioned: 02/24/2025 [...] a single formalin filled container labeled ANDRIA MAGAÑA and gastric biopsies. It is 4 fragments [...] determined by the Surgical Pathology Department at [facility] as part of an ongoing auditor/quality program and in compliance with federally mandated [...] characteristics determined by the Surgical Pathology Department [facility]. It has not been cleared or approved by the U. S. Food and Drug Administration. Note for decalcified specimens: This assay has not been validated on decalcified tissues. Results should be interpreted with caution given the possibility of false negativity on decalcified specimens Rian Flores DO LAB PATHOLOGY ORDERABLES Final Result Performing Organization Address City/State/[facility] Co de Phone Number [facility]OLOGY [facility] [address], [place] [address] from Last 3 Months Insurance IDPA IDPA Advance Directives For more information, please contact: [phone] * Full Code (Latest Code Status on File) Date Activated Date Inactivated Comments 02/23/2025 10:31 AM 02/23/2025 5:22 PM * Full Code Date Activated Date Inactivated Comments 02/23/2025 10:31 AM 02/23/2025 10:31 AM Care Teams Assembler Dielectric Heater Relationship Specialty Start Date End Date Niya Bush NP [address] [address] PCP - General Family Medicine 02/22/25 Nicky Woodard, PT Physical Therapist Physical Therapy 11/05/17 Kelsea Reyes, PT Physical Therapist Physical Therapy 12/03/17 Claude Alegria MD [address] [place] [address] Consulting Physician Neurology 12/07/17 Teo Reyes, PT Physical Therapist Physical Therapy 02/25/23
--- OUTSIDE RECORDS SUMMARY | 2025-04-20 07:40 | XMS_ITS | Encounter Summary ---
Author Organization [employer] Address [address] [place] [address] Care Team Providers Care Multimedia Engineer Name Role Phone Mannie Bhakta MD Primary Care Provider [phone] Encounter Details Date Type Department Care Team (Latest Contact Info) Description 06/18/2006 Outpatient Historical HIS [facility] THERAPY [place] Helio Gonzalez DO NO ADDRESS ON FILE Pain in Joint, Lower Leg (Primary Dx) Social History Tobacco Use Types Packs/Day Years Used Date Smoking Tobacco: Never Assessed Comments Unknown Sex and Gender Information Value Date Recorded Sex Assigned at Not on file Legal Sex Female 4:15 AM NURSING SCHEDULER Gender Identity Not on file Sexual Orientation Not on file documented as of this encounter Plan of Treatment Not on file documented as of this encounter Visit Diagnoses Diagnosis Pain in joint, lower leg- Primary documented in this encounter Care Teams Multimedia Engineer Relationship Specialty Start Date End Date Mannie Bhakta MD [address] [place] [address] PCP - General Internal Medicine 08/31/12 12/12/15 documented as of this encounter
--- OUTSIDE RECORDS SUMMARY | 2025-04-20 07:41 | XMS_ITS | Clinical Summary ---
Author Organization [facility] Address [address] [place] [address] Care Team Providers Care Auto Body Repair Teacher Name Role Phone Nicky Woodard PT Unavailable Unavailable Kelsea Reyes PT Unavailable Unavailable Claude Alegria MD Unavailable [phone] Teo Reyes PT Unavailable Unavailable Niya Bush NP Primary Care Provider + [phone] Allergies Active Allergy Reactions Criticality Noted Date [...] 2000 IU daily - Start vitamin D 91763 IU weekly Bilateral carotid artery stenosis 06/22/2023 Neurological symptoms 06/22/2023 Encounter for screening for malignant neoplasm o f colon 04/24/2023 Abdominal pain 04/24/2023 Pharyngoesophageal dysphagia 02/24/2023 Prediabetes 01/19/2023 Overview (01/19/2023): at goal and unlikely to be contributing Assessment & Plan (12/21/2023 2:39 PM FIELD MAP TECHNICIAN): Lab Results Component Value Date HGBA1C 5.4 12/03/2023 HGBA1C 5.7 (H) 11/04/2022 HGBA1C 5.4 10/14/2017 Lab Results Component Value Date LDLCALC 158 (H) 12/03/2023 CREATININE 0.80 12/03/2023 Stable continue same regimen Assessment & Plan (12/03/2023 3:07 PM FIELD MAP TECHNICIAN): Lab Results Component Value Date HGBA1C 5.7 (H) 11/04/2022 HGBA1C 5.4 10/14/2017 Lab Results Component Value Date LDLCALC 84 11/04/2022 CREATININE 0.71 11/25/2023 Stable continue same regimen Assessment & Plan (10/15/2023 3:12 PM FIELD MAP TECHNICIAN): Lab Results Component Value Date HGBA1C 5.7 [...] 12/02/2022 Assessment & Plan (12/02/2022 4:53 PM FIELD MAP TECHNICIAN): Not quite at goal - states that she knows what triggers it Mixed hyperlipidemia 08/26/2022 Assessment & Plan (12/21/2023 2:39 PM FIELD MAP TECHNICIAN): Lab Results Component Value Date CHOL 245 [...] 08/26/2022 Assessment & Plan (12/21/2023 2:27 PM FIELD MAP TECHNICIAN): Worsening sx Was not called by pain mgmt Will place new referral Assessment & Plan (12/02/2022 4:54 PM FIELD MAP TECHNICIAN): Not at goal at this time - has tried gabapentin previously with no improvement Pain in joints of both feet 10/29/2020 Nausea 09/03/2020 Fatigue 09/03/2020 Plantar fasciitis 11/10/2019 S/P total hysterectomy 07/12/2019 Mass of left breast 11/13/2017 Numbness and tingling of left upper extremity 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 GERD (gastroesophageal reflux disease) 4 Assessment & Plan (12/03/2023 3:08 PM FIELD MAP TECHNICIAN): New sx Likely gerd Start omeprazole 40 mg bid x 2 weeks 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 Encounters Date Type Department Care Team Description 04/06/20 [facility] [address] [place] [address] Genaro Ramires RN 03/27/20 6:40 PM CDT - 03/27/20 9:56 PM CDT Emergency [facility] Emergency Department [address] [place] [address] Lisa Frances MD Abdominal pain, generalized (Primary Dx); Enteritis Discharge Disposition: Discharge to home or self care 03/18/20 10:44 AM CDT - 03/18/20 11:59 PM CDT Hospital Encounter [facility] [address] [place] [address] Pelvic and perineal pain Discharge Disposition: Discharge to home or self care 02/29/20 Results Follow-Up [facility] G[facility]ology at [place] [address] [facility] [address] [place] [address] Rian Flores, Surgical pathology 02/24/20 11:40 AM CDT - 02/24/20 12:20 PM CDT Surgery [address] [address] Rian Flores, ESOPHAGOGASTRODUODENOSCOPY BIOPSY 02/24/20 11:37 AM CDT Anesthesia Event [address] [address] Mariangel Voss MD Zirkelbach, Cecilia A., CRNA 02/24/20 10:29 AM CDT - 02/24/20 1:17 PM CDT Hospital Encounter [address] [address] Rian Flores, Gastroesophageal reflux disease, unspecified whether esophagitis present; Abdominal pain Discharge Disposition: Discharge to home or self care 02/22/[address] [facility] Gastroenterology at [address] [place] [address] Suzy Herrera 02/11/[address] [facility] Gastroenterology at [address] [place] [address] Suzy Herrera from Last 3 Months Immunizations Immunization Administration Dates Next Due Influenza, Unspecified 07/16/2023(Deferr ed: Patient Refused),06/02/2023(Deferred: Patient Refused),08/26/2022(Deferred: Patient Refused),01/01/2022(Deferred: Patient Refused) Surgical History Surgery Date Site/Laterality Comments TUBAL LIGATION COLONOSCOPY last 2017 TONSILLECTOMY BREAST SURGERY implants HYSTERECTOMY 11/02/2018 - [...] on file Legal Sex Female 12:33 PM FIELD MAP TECHNICIAN Gender Identity Not on file Sexual Orientation [...] ur Straw Yellow Comment:[facility] : [facility] [address] [place] [address] Clarity, ur Clear Clear CERNER Comment:Testing performed by : [facility] [address], [place] [address] Specific gravity, ur >1.050(A) 1.003 - 1.030 CERNER Comment:Testing performed by : [facility] [address], [place] [address] pH, urine 7.0 CERNER Comment: Interpretive Data U rine pH is affected by diet, medications, systemic acid-base disturbances, and renal tubular function. pH may affect urinary stone formation. For example, urine pH below 6.0 may help reduce the tendency for calcium phosphate stones and pH greater than 6.0 may reduce the tendency for uric acid stone formation. Source: [employer] Current Interpretive Data was last revised on 2017 Testing performed by: [facility] [address], [place] [address] Protein, ur ql Negative Negative CERNER CH Comment:Testing performed by : [facility] [address], [place] [address] Glucose, ur ql Negative Negative CERNER CH Comment:Testing performed by : [facility] [address], [place] [address] Ketones, ur Negative Negative CERNER CH Comment:Testing performed by : [facility], [address], [place] [address] Bilirubin, ur Negative Negative ROSMERY Comment:Testing performed by : [facility], [address], [place] [address] Blood, ur Negative Negative ROSMERY Comment:Testing performed by : [facility], [address], [place] [address] Urobilinogen, ur <2.0 <2.0 mg/dL ROSMERY KAUR Comment:Testing performed by : [facility], [address], [place] [address] Nitrite, ur Negative Negative ROSMERY CH Comment:Testing performed by : [facility], [address], [place] [address] Leukocyte esterase, ur Negative Negative ROSMERY Comment:Testing performed by : [facility], [address], [place] [address] UA reflex comment Reflex conditions for microscopic UA and culture not met. ROSMERY Comment:Testing performed by : [facility], [address] [place] [address] Urine 03/27/2025 9:12 PM CDT 03/27/2025 9:14 PM CDT Lisa Frances MD LAB MICROBIOLOGY - [facility] ORDERABLES Final Result ROSMERY KAUR [address] Department [place] [address] * CT Abdomen Pelvis W Contrast (03/27/2025 8:29 PM CDT) Anatomical Region Laterality Modality Body N/A Computed Tomogra phy 03/27/2025 8:23 PM CDT Impressions 03/28/2025 8:15 AM CDT NO ACUTE INTRA-ABDOMINAL FINDINGS Stat report by [facility] Electronically signed by: Mike Alvarado M.D. [...] NO ACUTE INTRA-ABDOMINAL FINDINGS Stat report by [facility] Electronically signed by: Mike Alvarado M.D. us Lisa Frances MD IMG CT PROCEDURES Final [...] was last reviewed 2021. Testing performed by: [facility] [address], [place] [address] Blood 03/27/2025 7:28 PM CDT 03/27/2025 7:46 PM CDT us Cliff Grier MD LAB BLOOD ORDERABLES Fin al Result [place] [address] Department [place] [address] * Differential, auto (03/27/2025 7:28 PM CDT) Pathologist [facility] Neutrophil abs 2.62 1.50 - 6.50 K/cumm Comment:Testing performed by : [facility] [address], [place] [address] Imm gran abs 0.01 0.00 - 0.10 K/cumm ROSMERY KAUR Comment:Testing performed by : [facility] [address], [place] [address] Lymphocyte abs 1.44 0.80 - 3.30 K/cumm CERNER CH Comment:Testing performed by : [facility], [facility] [place] [address] Monocyte abs 0.60 0.20 - 0.80 K/cumm CERNER CH Comment:Testing performed by : [facility], [facility] [place] [address] Eosinophil abs 0.01 0.00 - 0.50 K/cumm CERNER CH Comment:Testing performed by : [address], [place] [address] Basophil abs 0.02 0.00 - 0.10 K/cumm CERNER CH Comment:Testing performed by : [facility], [address] [place] [address] [place] [address] Neutrophil pct 55.8 % CERNER CH Comment: Interpretive Data Percent cell count reference ranges are not reported, since discordance with absolute values may lead to misinterpretation of CBC data. Current Interpretive Data was last revised on 2018. Testing performed by: [address] [place] [address] Imm gran pct 0.2 % CERNER CH Comment: Interpretive Data Percent cell count reference ranges are not reported, since discordance with absolute values may lead to misinterpretation of CBC data. Current Interpretive Data was last revised on 2018. Testing performed by: [address] [place] [address] Lymphocyte pct 30.6 % CERNER CH Comment: Interpretive Data Percent cell count reference ranges are not reported, since discordance with absolute values may lead to misinterpretation of CBC data. Current Interpretive Data was last revised on 2018. Testing performed by: [address] [place] [address] Monocyte pct 12.8 % CERNER CH Comment: Interpretive Data Percent cell count reference ranges are not reported, since discordance with absolute values may lead to misinterpretation of CBC data. Current Interpretive Data was last revised on 2018. Testing performed by: [facility], [address] [place] [address] [place] [address] Eosinophil pct 0.2 % CERNER CH Comment: Interpretive Data Percent cell count reference ranges are not reported, since discordance with absolute values may lead to misinterpretation of CBC data. Current Interpretive Data was last revised on 2018. Testing performed by: [facility] [address], [place] [address] Basophil pct 0.4 % CERNER CH Comment: Interpretive Data Percent cell count reference ranges are not reported, since discordance with absolute values may lead to misinterpretation of CBC data. Current Interpretive Data was last revised on 2018. Testing performed by: [facility] [address], [place] [address] Blood 03/27/2025 7:28 PM CDT 03/27/2025 7:46 PM CDT us Cliff Grier MD LAB BLOOD ORDERABLES Fin al Result [facility] [address] [address] Department [place] [address] * CBC with auto differential (03/27/2025 7:28 PM CDT) WBC 4.70 3.80 - 9.90 K/cumm Comment:Testing performed by : [facility] [address], [place] [address] Hgb 13.0 11.9 - 15.5 g/dL CERNER CH Comment:Testing performed by : [facility] [address], [place] [address] Hct 36.7 35.6 - 45.5 % CERNER CH Comment:Testing performed by : [facility] [address], [place] [address] Plt 255 150 - 400 K/cumm CERNER CH Comment:Testing performed by : [facility] [address], [place] [address] MPV 9.2 9.1 - 12.3 fL CERNER CH Comment:Testing performed by : [facility] [address] [place] [address] RBC 3.90 3.90 - 5.20 M/cumm CERNER CH Comment:Testing performed by : [facility] [address], [place] [address] MCV 94.1 81.3 - 96.4 fL CERNER CH Comment:Testing performed by : [facility] [address], [place] [address] MCH 33.3 27.1 - 33.3 pg CERNER CH Comment:Testing performed by : [facility] [address] [place] [address] MCHC 35.4 32.3 - 35.7 g/dL ROSMERY CH Comment:Testing performed by : [facility], [facility] [place] [address] RDW CV 11.6 11.1 - 14.9 % ROSMERY CH Comment:Testing performed by : [facility], [facility] [place] [address] RDW SD 39.7 35.7 - 48.1 fL ROSMERY CH Comment:Testing performed by : [facility] [address] NRBC abs 0.00 0.00 - 0.01 K/cumm ROSMERY CH Comment:Testing performed by : [facility] [address] [place] [address] Blood Venous blood specimen / Unknown 03/27/2025 7:28 PM CDT 03/27/2025 7:46 PM CDT Lisa Frances MD LAB BLOOD ORDERABLES Fi nal Result Performing Organization Address City/[facility] Co de Phone Number ROSMERY [address] [address] [facility] [place] [address] * Lipase (03/27/2025 7:28 PM CDT) Lipase 20 10 - 99 Units/L Comment:Testing performed by : [facility] [place] [address] Blood Venous blood specimen / Unknown 03/27/2025 7:28 PM CDT 03/27/2025 7:46 PM CDT Lisa Frances MD LAB BLOOD ORDERABLES Fi nal Result Performing Organization Address City/State/[facility] Co de Phone Number ROSMERY [address] [address] [facility] [address] [place], [place] [id number] * Comprehensive metabolic panel (03/27/2025 7:28 PM CDT) Sodium 138 135 - 145 mmol/L Comment:Testing performed by : [facility], [address] [address] Potassium, pl 4.0 3.3 - 4.9 mmol/L CERNER CH Comment:Testing performed by : [facility] [place] [address] Chloride 103 97 - 110 mmol/L CERNER CH Comment:Testing performed by : [facility] [place] [address] CO2 24 22 - 32 mmol/L CERNER CH Comment:Testing performed by : [facility] [place] [address] Anion gap 11 2 - 15 mmol/L CERNER CH Comment:Testing performed by : [facility] [place] [address] BUN 13 6 - 25 mg/dL CERNER CH Comment:Testing performed by : [facility] [place] [address] Creatinine 0.77 0.60 - 1.10 mg/dL CERNER CH Comment:Testing performed by : [facility] [place] [address] Glucose 95 70 - 199 mg/dL CERNER [...] was last revised 2022. Testing performed by: [facility] [place] [address] Calcium 9.2 8.5 - 10.3 mg/dL CERNER CH Comment:Testing performed by : [facility] [place] [address] Bilirubin, total 0.5 0.1 - 1.2 mg/dL CERNER CH Comment:Testing performed by : [facility] [place] [address] Protein, pl 7.1 6.5 - 8.5 g/dL CERNER CH Comment:Testing performed by : [facility] [place] [address] Albumin 4.3 3.5 - 5.0 g/dL [facility] Comment:Testing performed by : [facility], [address], [place] [address] Alk phos 73 40 - 130 Units/L [facility] Comment:Testing performed by : [facility], [address], [place] [address] ALT 23 7 - 45 Units/L CERNER Comment:Testing performed by : [facility], [address], [place] [address] AST 22 10 - 45 Units/L [facility] Comment:Testing performed by : [facility], [address], [place] [address] Blood 03/27/2025 7:28 PM CDT 03/27/2025 7:46 PM CDT Lisa Frances MD LAB BLOOD ORDERABLES Fi nal Result Performing Organization Address City/State/[facility] Co de Phone Number [facility] [address] [address] Department [place] [address] * POCT hCG, urine (03/27/2025 7:03 PM [...] by: Patricia Mai M.D. Mack Gambino MD [facility] US PROCEDURES Adela l Result * EGD (02/23/2025 10:40 AM CDT) Anatomical Region Laterality Modality Other Narrative Procedure Note Rian Flores DO - 02/23/2025 10:40 AM CDT [facility] Patient Name: Andria Magaña Procedure Date: 02/23/2025 10:40 AM Date of : 1970 Admit Type: Outpatient Age: 54 Gender: Female Attending MD: Rian Flores D.O. Room: [facility] ENDOSCOPY ROOM 3 Note Status: Finalized Patient Profile: Refer to note in patient chart for documentation of history and physical. Procedure: Upper GI endoscopy Indications: Follow-up of gastro-esophageal reflux disease Referring MD: Danna Omer.N.PLogan Providers: Rian Flores D.O. Impression: - Normal [...] passed under direct vision. The Endoscope GIF-H190 [id number] was introduced through the mouth, and advanced [...] 10:40 AM Procedure Code(s): --- Professional --- 32286, Esophagogastroduodenoscopy, flexible, transoral; with biopsy, single or multiple --- Technical --- 95128, Esophagogastroduodenoscopy, flexible, transoral; with biopsy, single or multiple Diagnosis Code(s): --- Professional --- K21.9, Gastro-esophageal reflux disease without esophagitis --- Technical --- K21.9, Gastro-esophageal reflux disease without esophagitis CPT copyright 2020 [employer]. All rights reserved. The codes documented in this report are preliminary and upon resp therapist reviewmay be revised to meet current compliance requirements. Recognized by the [employer] for promoting quality in endoscopy us Rian Flores DO ENDOSCOPY PROCEDURES Final Res ult * Colonoscopy (02/23/2025 10:38 AM CDT) Anatomical Region Laterality Modality Other Narrative Procedure Note Rian Flores, DO - 02/23/2025 10:38 AM CDT [facility] Patient Name: Andria Magaña Procedure Date: 02/23/2025 10:38 AM Date of : 1970 Admit Type: Outpatient Age: 54 Gender: Female Attending MD: Rian Flores D.O. Room: [facility] ENDOSCOPY ROOM 3 Note Status: Finalized Patient Profile: Refer to note in patient chart for documentation of history and physical. Procedure: Colonoscopy Indications: Last colonoscopy: June 2023, Abnormal CT of theGI tract Referring MD: Macario Omer Providers: Rian Flores D.O. Impression: - The [...] under direct vision. The Pediatric Colonoscope [id number]-[id number] [id number] was introducedthrough the anus and advanced to [...] 10:38 AM Procedure Code(s): --- Professional --- 98010, Colonoscopy, flexible; diagnostic, including collection of specimen(s) by brushing or washing, when performed (separateprocedure) --- Technical --- 81224, Colonoscopy, flexible; diagnostic, including collection of specimen(s) by brushing or washing, when performed (separateprocedure) Diagnosis Code(s): --- Professional --- R93.3, Abnormal findings on diagnostic imaging of other parts of digestive tract --- Technical --- R93.3, Abnormal findings on diagnostic imaging of other parts of digestive tract CPT copyright 2020 [employer]. All rights reserved. The codes documented in this report are preliminary and upon resp therapist reviewmay be revised to meet current compliance requirements. Recognized by the [employer] for promoting quality in endoscopy Rian Flores DO ENDOSCOPY PROCEDURES Final Res ult * Surgical pathology (02/23/2025 10:38 AM CDT) Tissue (Gastric/Stomach biopsy) 02/23/2025 12:00 PM CDT Narrative PATHOLOGY [facility] - 02/27/2025 3:41 PM CDT EPIC results best viewed via link to PDF [facility] Department of Pathology [address] [place] [id number] Note to Patients: This report may contain [...] Final Report Patient Name: ANDRIA MAGAÑA Address: [address], [place] [address] Gender: F : 1970 (Age: 54) Service: Gastro Location: [facility] Hospital #: [id number] Patient Type: [facility] Taken: 02/23/2025 Received: 02/24/2025 Accessioned: 02/24/2025 Reported: [...] determined by the Surgical Pathology Department at [facility] as part of an ongoing quality checker program and in compliance with federally mandated [...] characteristics determined by the Surgical Pathology Department [facility]. It has not been cleared or approved by the U. S. Food and Drug Administration. Note for decalcified specimens: This assay has not been validated on decalcified tissues. Results should be interpreted with caution given the possibility of false negativity on decalcified specimens Rian Flores DO LAB PATHOLOGY ORDERABLES Final Result PATHOLOGY [facility] [address] [place], [place] [id number] from Last 3 Months Insurance IDPA IDPA Advance Directives For more information, please contact: [phone] * Full Code (Latest Code Status on File) Date Activated Date Inactivated Comments 02/23/2025 10:31 AM 02/23/2025 5:22 PM * Full Code Date Activated Date Inactivated Comments 02/23/2025 10:31 AM 02/23/2025 10:31 AM Care Teams Auto Body Repair Teacher Relationship Specialty Start Date End Date Niya Bush APPLICATIONS ENGINEER [employer]ING [address] [address] PCP - General Family Medicine 02/22/25 Nicky Woodard, PT Physical Therapist Physical Therapy 11/05/17 Kelsea Reyes, PT Physical Therapist Physical Therapy 12/03/17 Claude Alegria MD [address] [place] [address] [address] [place] [address] Consulting Physician Neurology 12/07/17 Teo Reyes, PT Physical Therapist Physical Therapy 02/25/23
--- OUTSIDE RECORDS SUMMARY | 2025-04-20 07:41 | XMS_ITS | Encounter Summary ---
Author Organization [facility] Address [address] [place] [address] Care Team Providers Care Court Registry Officer Name Role Phone Unavailable Primary Care Provider Unavailabl e Encounter Details Date Type Department Care Team (Late st Contact Info) Description 04/18/2025 External Device Data [place] ABSTRACTION Provider, Abstract NO ADDRESS ON FILE Social History Tobacco Use Types Packs/Day Years Used Date Smoking Tobacco: Never Passive Smoke Exposure: Never Smokeless Tobacco: Never Alcohol Use Standard Drinks/Week Comments No 0 (1 standard drink = 0.6 oz pur e alcohol) Comments No Sex and Gender Information Value Date Recorded Sex Assigned at Not on file Legal Sex Female 4:15 AM ACCREDITED PHARMACY TECHNICIAN Gender Identity Not on file Sexual Orientation Not on file Occupation Industry Job Start Date Job End Date Not on file Not on file Not on file Not on file Not on file Not on file Not on file Not on file documented as of this encounter Plan of Treatment Not on file documented as of this encounter Visit Diagnoses Not on filedocumented in this encounter
--- OUTSIDE RECORDS SUMMARY | 2025-04-20 07:41 | XMS_ITS | Encounter Summary ---
Author Organization [facility] Address [address] [place] [address] Care Team Providers Care Agricultural Production Engineer Name Role Phone Alie Stack DIETETICS TEACHER-INVESTIGATOR WELFARE Primary Care Provider Reason for Visit * Reason Onset Date Comments Bladder Problem 10/18/2019 Encounter Details Date Type Department Care Team (Late st Contact Info) Description 10/18/2019 Telephone [facility] - PROCUREMENT PROFESSIONAL [address] [address] Diana Hartman MD [facility] [address] Bladder Problem Social History Tobacco Use Types [...] on file Legal Sex Female 6:27 AM ENERGY ECONOMIST Gender Identity Not on file Sexual Orientation [...] new pt paperwork. Jeffry'michell w/ Dr Hartman. GY ECONOMIST * Telephone Encounter - Terra Worrell - 10/18/2019 11:03 AM CST Pt calling to speak to the nurse regarding bladder pain GY ECONOMIST documented in this encounter Plan of Treatment Not on file documented as of this encounter Visit Diagnoses Not on filedocumented in this encounter Additional Health Concerns Infection Onset Date Last Indicated Resolved Time COVID-19 Under Investigation 05/15/2020 05/15/2020 05/16/2020 2:18 PM CDT COVID-19 Under Investigation 08/03/2023 08/03/2023 08/04/2023 2:45 AM CDT documented as of this encounter Care Teams Agricultural Production Engineer Relationship Specialty Start Date End Date Alie Stack, DIETETICS TEACHER-INVESTIGATOR WELFARE [address] [facility] [address] Barney [address] [place] [phone] PCP - General 11/19/21 documented as of this encounter
--- OUTSIDE RECORDS SUMMARY | 2025-04-20 07:41 | XMS_ITS | Clinical Summary ---
Author Organization [facility] Address [address] [facility] [place] [address] Care Team Providers Care Beveler Name Role Phone Alie Stack CUT OFF SAWYER LOG-PLASTIC DUPLICATOR Primary Care Provider Source Comments [facility] [employer],non-owned Affiliates and Associated Physician Practices is amultiple site organization consisting of ambulatory clinics and hospital sitesin [place], [place], [place] and [place]. This disclosure is being madepursuant to the Care Everywhere program and may not contain all information available regarding this patient. 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 [employer] Height 162.6 cm (5' 4) 09/07/2024 11:13 AM [employer] Body Mass Index 26.61 09/07/2024 11:13 AM [employer]VISOR [employer] Plan of Treatment Health Maintenance Due Date Last Done Comments LEILA (AGES 45-75) - COLON CA SCREENING [address] CT COLONOGRAPHY - COLON CA SCREENING [...] Ended) 2025 SCREENING FOR DIABETES 08/03/2026 , 06/19/2023, 06/11/2023, Additional history exists MAMMOGRAM 09/07/2026 09/07/2024, 07/04, 07/17/2022, Additional history exists COLON MONITORING 06/18/2033 06/18/2023 COLONOSCOPY - COLON CA SCREENING 06/18/2033 06/18/2023 [...] SCREEN W JUAN Routine 09/07/2024 11:14 AM [employer]PER[employer]OR [employer] Encounter for screening mammogram for breast cancer COMPREHENSIVE METABOLIC PANEL STAT 08/03/2023 8:01 PM CDT from Last 3 Months or Most Recently Relevant to Health Maintenance Results * MAMMO BILAT IMPLANT SCREEN W JUAN (09/07/2024 11:14 AM [employer]) Anatomical Region Laterality Modality Breast Bilateral Mammography 09/07/2024 12:5 9 PM [employer] Impressions 09/07/2024 1:01 PM [employer] IMPRESSION: There is no mammographic evidence of malignancy. OVERALL FINAL ASSESSMENT: BI-RADS Category 1: Negative. Annual screening mammography is recommended. > Interpreting Provider: Sully Bacon MD on 09/07/2024 1:01 PM Narrative 09/07/2024 1:01 PM [employer] EXAMINATION: BILATERAL DIGITAL SCREENING MAMMOGRAM AND BILATERAL [...] there are stable bilateral subpectoral saline implants. Mack Gambino MD MAMMO ORDERABLES Final Result [...] - 55 U/L 08/03/2023 9:11 PM CDT [facility] AST 16 5 - 34 U/L 08/03/2023 9:11 PM CDT [facility] Protein Total 7.5 6.4 - 8.3 gm/dL 08/03/2023 9:11 PM CDT [facility] Albumin 4.1 3.4 - 5.0 gm/dL 08/03/2023 9:11 PM CDT [facility] Bilirubin Total 0.5 0.2 - 1.2 mg/dL 08/03/2023 9:11 PM CDT [facility] eGFR by CKD-EPI 90 >=90 mL/min/1.7 3 m2 08/03/2023 9:11 PM CDT [facility] Blood BLOOD SPECIMEN / Unknown Venipuncture / Unknown 08/03/2023 8:01 PM CDT 08/03/2023 8:56 PM CDT Kalani Del Toro PA-C LAB - CHEMISTRY ORDERABLES Fi nal Result [facility] [id number] [place] [id number] from Last 3 Months or Most Recently Relevant to Health Maintenance Advance Directives * Full Code (Latest Code Status on File) Date Activated Date Inactivated Comments 04/13/2021 10:27 PM 04/14/2021 11:38 AM Care Teams Beveler Relationship Specialty Start Date End Date Alie Stack, CUT OFF SAWYER LOG-PLASTIC DUPLICATOR [address] [place] [address] Dr Barney [address] [place] [address] [phone] PCP - General 11/19/21
--- OUTSIDE RECORDS SUMMARY | 2025-04-20 07:41 | XMS_ITS | Clinical Summary ---
Author Organization [facility] Address [address] [place] [address] Phone Care Team Providers Care Personnel Placement Specialist Name Role Phone Mario Alberto Bernstein DPM Unavailable [phone] Niya Bush APRN, HEAD OF ADVERTISING Primary Care Provider Allergies Active Allergy Reactions [...] Comments Blood Pressure 110/64 10/31/2024 4:30 PM DRY CANS BACK TENDER Pulse 65 10/31/2024 4:30 PM DRY CANS BACK TENDER Temperature 37 C (98.6 F) 10/31/2024 4:30 PM DRY CANS BACK TENDER Respiratory Rate 16 10/31/2024 4:30 PM DRY CANS BACK TENDER Oxygen Saturation 100% 10/31/2024 4:30 PM DRY CANS BACK TENDER Inhaled Oxygen Concentration - - Weight 63 kg (139 lb) 10/31/2024 12:03 PM DRY CANS BACK TENDER Height 157.5 cm (5' 2) 10/31/2024 12:03 PM DRY CANS BACK TENDER Body Mass Index 25.42 10/31/2024 12:03 PM DRY CANS BACK TENDER Plan of Treatment Health Maintenance Due Date Last Done Comments Hepatitis C Virus (HCV) Screening 1970 TdaP Immunization 1970 Hepatitis B Immunization (1 of 3 - 19+ 3-dose series) 1989 Cologuard 2015 Immunochemical Fecal Occult Blood 2015 Pneumococcal Immunization (50+ years) (1 of 1 - PCV) 2020 Zoster Immunization (1 of 2) 2020 SARS-COV-2 Immunization (1 - season) 2024 Influenza Immunization (Season Ended) 2025 Mammogram 09/07/2025 09/07/2024, 04/2024, 07/29/2023, Additional history exists Colonoscopy 06/18/2028 06/18/2023, 10/04, 04/06/2019 Colorectal Cancer Screening 06/18/2028 Respiratory Syncytial Virus (RSV) Immunization (Adult) (1 - 1-dose 75+ series) 2045 Discussion re Starting/Frequency of Mammograms Discontinued 09/07/2024, 07/29/2023, 07/17/2022, Additional history exists Human Papillomavirus (HPV) Immunization Aged Out No longer eligible based on patient's age to complete this topic Meningococcal Immunization (ACWY) Aged Out No longer eligible based on patient's age to complete this topic Rotavirus Immunization Aged Out No lo nger eligible based on patient's age to complete this topic Insurance [place]ID [place] Member Subscriber Plan / Payer (Ef fective 2024-Present) Name:Andria Magaña Relation to Subscriber:Self Name:Andria Magaña Payer ID:[id number] Group ID:Not on file Type:Not on file Address: [address] Care Teams Personnel Placement Specialist Relationship Specialty Start Date End Date Niya Bush APRN, HEAD OF ADVERTISING [address] [place] [address] PCP - General Advanced Practice Nurse 10/31/24 Mario Alberto Bernstein DPM Consulting Physician Podiatry 07/14/17
--- OUTSIDE RECORDS SUMMARY | 2025-04-20 07:41 | XMS_ITS | Data Portability ---
Author Organization [facility] Address [address] [place] [address] Care Team Providers [employer] Name Role Phone HAILEY, THERESA Primary Care Provider Assessment Encounter Date Assessment Date Assessment LastModified by Organization Details LastModified Time 10/19/2024 10/19/2024 Ms. Magaña presents with a chief complaint of a sharp headache persisting for the past two weeks. The headache is primarily localized to the left side of the head and radiates down to the left shoulder. Associated symptoms include nausea and blurred vision, which have been ongoing for the same duration. The patient denies any history of trauma, fever, or recent illness. Exacerbating and alleviating factors are unclear Not available 11/03/2024 00:57:12 11/09/2024 11/09/2024 Ms. Magaña presents for follow-up after an ER visit on 10/31/2024 due to ongoing abdominal pain. The patient reports that the abdominal pain, which has been present for several months, is localized to the left lower quadrant and described as mildly severe. In addition to the abdominal pain, the patient complains of nausea without vomiting. She reports experiencing frequent bowel movements over the course of several months. The patient is scheduled to see a gastrointestinal (GI) specialist in December for further evaluation. An abdominal CT scan, ordered by her SECURITY SITE SUPERVISOR on 10/27/2024, showed evidence of enteritis. The patient was diagnosed with enteritis during the ER visit on 10/31/2024. The patient also mentions having observed worms in her stool, although she denies any blood in her stool. Additionally, the patient reports sharp, stabbing pains in the vaginal and anal areas. A colonoscopy performed on 06/18/2023 revealed diverticulosis, but otherwise, the results were normal. Not available 11/09/2024 13:17:00 12/05/2024 12/05/2024 Ms. Magaña presents with ongoing abdominal pain and reports minimal improvement with dicyclomine, which she has discontinued. She has not yet followed up with a gastroenterology (GI). Not available 12/20/2024 15:23:30 01/27/2025 01/27/2025 Ms. Magaña presents for follow-up with ongoing severe fatigue and GI symptoms. She reports nausea worsened by eating, with some relief after bowel movements. Fatigue is significant enough to interfere with her ability to work. She requests labs, including Vitamin D. Not available 02/07/2025 13:15:47 Plan of Treatment Reminders Order Date Submit Date Provider Last Modified By Organization Details Last Modified Time Details Appointments ANY 15 2024 03:15P Rajni HART, YULIA Not available Not available Not available Lab cobalami n and folate panel, serum 2024 025 [email or web address] [facility], [address], [place], [address], 04/03/2025 13:03:37 CBC w/ auto diff 2024 025 [email or web address] [facility], [address], [place], [address], 04/03/2025 13:03:37 iron + total iron-bin ding capacity (TIBC), serum 2024 025 [email or web address] [facility], [address], [place], [address], 04/04/2025 08:28:49 ferritin , serum or plasma 2024 025 [email or web address] [facility], [address], [place], [address], 04/04/2025 08:28:49 TSH + free T4, serum 2024 025 rrana laura [facility], [address], [place], [address], 04/04/2025 08:28:49 vitamin D, 25-hydro xy, total, serum 2024 025 rrana laura [facility], [address], [place], [address], 04/04/2025 08:28:49 vaginal pathogen s panel, OUMOU+prob e, vaginal fluid 2024 025 [place] [facility], [address], [place], [address], 12/22/2024 07:14:35 sexually transmit zachariah pathogen s panel, OUMOU+prob e, unspecif ied specimen 2024 025 [email or web address] [facility], [address], [place], [address], 02/08/2025 12:23:16 Referral None recorded . Procedures None recorded . Surgeries None recorded . Imaging CT, head + brain, w/wo contrast 2023 024 [facility] [place] (Central Scheduling), [id number] [facility], [place], [address], 11/01/2024 14:06:51 Medication Orders C[facility] [address] [facility] [address] [id number] [address], [place], [id number], 01/27/2025 14:30:05 dicyclom ine 10 mg capsule 2024 025 erobbins[address] [id number], [address], [place], [id number], 01/27/2025 14:30:01 Patient TargetsNo targets recorded. Patient Instructions Encounter Date Encounter Id Patient Instructions Last Modified By Organization Details Last Modified Time 10/19/2024 [id number] - Always present to ER or Urgent Care with any progression of/alarming symptoms, significant changes in symptoms or any concerning or urgent matters Not available 10/19/2024 12:46:46 11/09/2024 [id number] diverticulosis: care instructions Not available 11/09/2024 11:39:49 learning about diverticulosis and diverticulitis Not available 11/09/2024 11:39:49 - Always present to ER or Urgent Care with any progression of/alarming symptoms, significant changes in symptoms or any concerning or urgent matters Not available 11/09/2024 13:20:30 12/05/2024 [id number] - Always present to ER or Urgent Care with any progression of/alarming symptoms, significant changes in symptoms or any concerning or urgent matters Not available 12/20/2024 15:17:11 12/20/2024 [id number] painful menstrua l cramps: care instructions [email or web address] Not available 12/20/2024 17:45:28 01/27/2025 [id number] diverticulosis: care instructions Not available 01/27/2025 14:46:55 learning about diverticulosis and diverticulitis Not available 01/27/2025 14:46:55 - Always present to ER or Urgent Care with any progression of/alarming symptoms, significant changes in symptoms or any concerning or urgent matters Not available 02/07/2025 13:09:21 Reason for Referral None Reported. Results Created Date Observation Date Name Description Value Unit Range Abnormal Flag Note LastModifiedBy Organization Detail LastModifiedTime 09/26/2009/30/2024 NUSWA B VAGIN ITIS PLUS (VG+) atopobium vaginae LOW - 0 score Not Available [facility] ([facility]) [address], [place], [address], 10/01/2024 07:11:21 09/26/2009/30/2024 NUSWA B VAGIN ITIS PLUS (VG+) bvab 2 LOW - 0 score Not Available [facility] ([facility]) [address] [place], [address], 10/01/2024 07:11:21 09/26/20 24 09/30/2024 NUSWA B VAGIN ITIS PLUS (VG+) megasphaera 1 LOW - 0 score Calcu late total score by duke g the 3 indiv idual bacte rial vagin osis (BV) marke r score s toget her. Total score is inter prete d as follo ws: Total score 0-1: Indic ates the absen ce of BV. Total score 2: Indet ermin ate for BV. Addit ional clini conner data shoul d be evalu ated to estab freda a diagn osis. Total score 3-6: Indic ates the prese nce of BV. Not Available [facility] ([facility]) [address] [place], [address], 10/01/2024 07:11:21 09/26/20 24 09/30/2024 NUSWA B VAGIN ITIS PLUS (VG+) taurus albicans, OUMOU NEGATI VE negati ve Not Available [facility] ([facility]) [address] [place], [address], 10/01/2024 07:11:21 09/26/20 24 09/30/2024 NUSWA B VAGIN ITIS PLUS (VG+) taurus glabrata, OUMOU NEGATI VE negati ve Not Available [facility] ([facility]) [address] [place], [address], 10/01/2024 07:11:21 09/26/20 24 10/01/2024 NUSWA B VAGIN ITIS PLUS (VG+) trich vag by OUMOU NEGATI VE negati ve Not Available [facility] ([facility]) [address] [place], [address], 10/01/2024 07:11:21 09/26/20 24 10/01/2024 NUSWA B VAGIN ITIS PLUS (VG+) chlamydia trachomatis, OUMOU NEGATI VE negati ve Not Available [facility] ([facility]) [address], [place], [address], 10/01/2024 07:11:21 09/26/20 24 10/01/2024 NUSWA B VAGIN ITIS PLUS (VG+) neisseria gonorrhoeae, OUMOU NEGATI VE negati ve Not Available [facility] ([facility]) [address], [place], [address], 10/01/2024 07:11:21 09/26/20 24 09/30/2024 GENIT AL MYCOP LASMA S OMUOU, SWAB mycoplasma genitalium OUMOU NEGATI VE negati ve Not Available [facility] ([facility]) [address], [place], [address], 10/01/2024 07:11:22 09/26/20 24 09/30/2024 GENIT AL MYCOP LASMA S OUMOU, SWAB mycoplasma hominis OUMOU NEGATI VE negati ve Not Available [facility] ([facility]) [address], [place], [address], 10/01/2024 07:11:22 09/26/20 24 09/30/2024 GENIT AL MYCOP LASMA S OUMOU, SWAB ureaplasma spp OUMOU NEGATI VE negati ve Not Available [facility] ([facility]) [address], [place], [address], 10/01/2024 07:11:22 09/26/20 24 09/26/2024 urina lysis , dipst ick Leukocytes Negati ve Not Available In-Office Order Internal Use Only DO Not Attach Compendium DO Not Attach Compendium, Do Not Delete/merge, [id number] 09/26/2024 15:48:15 09/26/20 24 09/26/2024 urina lysis , dipst ick Nitrite negati ve Not Available In-Office Order Internal Use Only DO Not Attach Compendium DO Not Attach Compendium, Do Not Delete/merge, 09/26/2024 15:48:15 09/26/20 24 09/26/2024 urina lysis , dipst ick Urobilinogen .2 Not Available In-Of fice Order Internal Use Only DO Not Attach Compendium DO Not Attach Compendium, Do Not Delete/merge, 09/26/2024 15:48:15 09/26/20 24 09/26/2024 urina lysis , dipst ick Protein Negati ve Not Available In-Office Order Internal Use Only DO Not Attach Compendium DO Not Attach Compendium, Do Not Delete/merge, 09/26/2024 15:48:15 09/26/20 24 09/26/2024 urina lysis , dipst ick pH 6.0 Not Available In-Office Order Internal Use Only DO Not Attach Compendium DO Not Attach Compendium, Do Not Delete/merge, [id number] 09/26/2024 15:48:15 09/26/20 24 09/26/2024 urina lysis , dipst ick Blood Negati ve Not Available In-Office Order Internal Use Only DO Not Attach Compendium DO Not Attach Compendium, Do Not Delete/merge, [id number] 09/26/2024 15:48:15 09/26/20 24 09/26/2024 urina lysis , dipst ick Specific [place] 1.015 Not Available In-Off ice Order Internal Use Only DO Not Attach Compendium DO Not Attach Compendium, Do Not Delete/merge, 09/26/2024 15:48:15 09/26/20 24 09/26/2024 urina lysis , dipst ick Ketone Negati ve Not Available In-Office Order Internal Use Only DO Not Attach Compendium DO Not Attach Compendium, Do Not Delete/merge, 09/26/2024 15:48:15 09/26/20 24 09/26/2024 urina lysis , dipst ick Bilirubin Negati ve Not Available In-Office Order Internal Use Only DO Not Attach Compendium DO Not Attach Compendium, Do Not Delete/merge, 09/26/2024 15:48:15 09/26/20 24 09/26/2024 urina lysis , dipst ick Glucose Negati ve Not Available In-Office Order Internal Use Only DO Not Attach Compendium DO Not Attach Compendium, Do Not Delete/merge, [id number] 09/26/2024 15:48:15 09/26/20 24 09/26/2024 urina lysis , dipst ick Appearance Clear Not Available In-Offi ce Order Internal Use Only DO Not Attach Compendium DO Not Attach Compendium, Do Not Delete/merge, [id number] 09/26/2024 15:48:15 09/26/20 24 09/26/2024 urina lysis , dipst ick Color Pale Yellow Not Available In-Office Order Internal Use Only DO Not Attach Compendium DO Not Attach Compendium, Do Not Delete/merge, [id number] 09/26/2024 15:48:15 10/31/20 24 10/31/2024 CBC W Auto Diffe renglory al panel - Blood leukocytes [#/volume] in blood by automated count 5.63 text: 4.00 - 12.00 10(3)/ mcL WBC 5.63 4.00 - 12.00 10(3) /mcL 10/31 1:59 PM CREDIT ASSISTANT [facility] Not Available Not Available 12/19/2024 12:21:14 10/31/20 24 10/31/2024 CBC W Auto Diffe renti al panel - Blood erythrocytes [#/volume] in blood by automated count 3.86 text: 3.80 - 5.30 10(6)/ mcL RBC 3.86 3.80 - 5.30 10(6) /mcL 10/31 1:59 PM CREDIT ASSISTANT [facility] Not Available Not Available 12/19/2024 12:21:14 10/31/20 24 10/31/2024 CBC W Auto Diffe renti al panel - Blood hemoglobin [mass/volume ] in blood 13 g/dL low: 12g/dL high: 15.8g/ dL HEMOG LOBIN (HGB) 13.0 12.0 - 15.8 g/dL 10/31 1:59 PM CREDIT ASSISTANT [facility] Not Available Not Available 12/19/2024 12:21:14 10/31/20 24 10/31/2024 CBC W Auto Diffe renti al panel - Blood hematocrit [volume fraction] of blood by automated count 36.3 % low: 36%hig h: 47% HEMAT OCRIT (HCT) 36.3 36.0 - 47.0 % 10/31 1:59 PM [facility] Not Available Not Available 12/19/2024 12:21:14 10/31/20 24 10/31/2024 CBC W Auto Diffe renti al panel - Blood MCV [entitic volume] by automated count 94 fL low: 82fLhi gh: 96fL MCV 94.0 82.0 - 96.0 fL 10/31 1:59 PM [facility] Not Available Not Available 12/19/2024 12:21:14 10/31/20 24 10/31/2024 CBC W Auto Diffe renti al panel - Blood MCH [entitic mass] by automated count 33.7 pg low: 26pghi gh: 34pg MCH 33.7 26.0 - 34.0 pg 10/31 1:59 PM [facility] Not Available Not Available 12/19/2024 12:21:14 10/31/20 24 10/31/2024 CBC W Auto Diffe renti al panel - Blood MCHC [mass/volume ] by automated count 35.8 g/dL low: 31g/dL high: 36g/dL MCHC 35.8 31.0 - 36.0 g/dL 10/31 1:59 PM [facility] Not Available Not Available 12/19/2024 12:21:14 10/31/20 24 10/31/2024 CBC W Auto Diffe renti al panel - Blood platelets [#/volume] in blood 240 text: 140 - 440 10(3)/ mcL PLATE LET COUNT 240 140 - 440 10(3) /mcL 10/31 1:59 PM [facility] Not Available Not Available 12/19/2024 12:21:14 10/31/20 24 10/31/2024 CBC W Auto Diffe renti al panel - Blood erythrocyte distribution width [ratio] by automated count 11.5 % low: 11.8%h igh: 15.5% low RDW 11.5 (L) 11.8 - 15.5 % 10/31 1:59 PM CREDIT ASSISTANT [facility] Not Available Not Available 12/19/2024 12:21:14 10/31/20 24 10/31/2024 CBC W Auto Diffe renti al panel - Blood platelet mean volume [entitic volume] in blood by automated count 9.7 fL low: 9.7fLh igh: 12.4fL MPV 9.7 9.7 - 12.4 fL 10/31 1:59 PM CREDIT ASSISTANT [facility] Not Available Not Available 12/19/2024 12:21:14 10/31/20 24 10/31/2024 CBC W Auto Diffe renti al panel - Blood neutrophils/ 100 leukocytes in blood by automated count 60.1 % low: 47%hig h: 73% NEUTR OPHIL S 60.1 47.0 - 73.0 % 10/31 1:59 PM CREDIT ASSISTANT [facility] [email or web address] Not Available Not Available 12/19/2024 12:21:14 10/31/20 24 10/31/2024 CBC W Auto Diffe renti al panel - Blood lymphocytes/ 100 leukocytes in blood by automated count 29.5 % low: 18%hig h: 42% LYMPH OCYTE S 29.5 18.0 - 42.0 % 10/31 1:59 PM CREDIT ASSISTANT [email or web address] Not Available Not Available 12/19/2024 12:21:14 10/31/20 24 10/31/2024 CBC W Auto Diffe renti al panel - Blood monocytes/10 0 leukocytes in blood by automated count 9.8 % low: 4%high : 12% MONOC YTES 9.8 4.0 - 12.0 % 10/31 1:59 PM [facility] Not Available Not Available 12/19/2024 12:21:14 10/31/20 24 10/31/2024 CBC W Auto Diffe renti al panel - Blood eosinophils/ 100 leukocytes in blood by automated count 0.2 % low: 0%high : 5% EOSIN OPHIL S 0.2 0.0 - 5.0 % 10/31 1:59 PM [facility] Not Available Not Available 12/19/2024 12:21:14 10/31/20 24 10/31/2024 CBC W Auto Diffe renti al panel - Blood basophils/10 0 leukocytes in blood by automated count 0.4 % low: 0%high : 1% BASOP HILS 0.4 0.0 - 1.0 % 10/31 1:59 PM CREDIT ASSISTANT [facility] Not Available Not Available 12/19/2024 12:21:14 10/31/20 24 10/31/2024 CBC W Auto Diffe renti al panel - Blood neutrophils [#/volume] in blood by automated count 3.39 text: 1.60 - 7.70 10(3)/ mcL ABSOL [place] NEUTR OPHIL S 3.39 1.60 - 7.70 10(3) /mcL 10/31 1:59 PM CREDIT ASSISTANT [facility] Not Available Not Available 12/19/2024 12:21:14 10/31/20 24 10/31/2024 CBC W Auto Diffe renti al panel - Blood lymphocytes [#/volume] in blood by automated count 1.66 text: 1.30 - 3.20 10(3)/ mcL ABSOL [place] LYMPH OCYTE S 1.66 1.30 - 3.20 10(3) /mcL 10/31 1:59 PM CREDIT ASSISTANT [facility] Not Available Not Available 12/19/2024 12:21:14 10/31/20 24 10/31/2024 CBC W Auto Diffe renti al panel - Blood monocytes [#/volume] in blood by automated count 0.55 text: 0.20 - 1.00 10(3)/ mcL ABSOL [place] MONOC YTES 0.55 0.20 - 1.00 10(3) /mcL 12/30 /2024 1:59 PM CREDIT ASSISTANT [facility] Not Available Not Available 12/19/2024 12:21:14 10/31/20 24 10/31/2024 CBC W Auto Diffe renti al panel - Blood eosinophils [#/volume] in blood by automated count 0.01 text: 0.00 - 0.40 10(3)/ mcL ABSOL [place] EOSIN OPHIL 0.01 0.00 - 0.40 10(3) /mcL 10/31 1:59 PM CREDIT ASSISTANT [facility] Not Available Not Available 12/19/2024 12:21:14 10/31/20 24 10/31/2024 CBC W Auto Diffe renti al panel - Blood basophils [#/volume] in blood by automated count 0.02 text: 0.00 - 0.10 10(3)/ mcL ABSOL [place] BASOP HILS 0.02 0.00 - 0.10 10(3) /mcL 10/31 1:59 PM CREDIT ASSISTANT [facility] Not Available Not Available 12/19/2024 12:21:14 10/31/20 24 10/31/2024 CBC W Auto Diffe renti al panel - Blood nucleated erythrocytes /100 leukocytes [ratio] in blood 0 NRBC PER 100 WBC 0 10/31 1:59 PM CREDIT ASSISTANT [facility] Not Available Not Available 12/19/2024 12:21:14 10/31/20 24 10/31/2024 CBC W Auto Diffe renti al panel - Blood interpretati on and review of laboratory results Abnorm al Not Available Not Available 12:21:14 10/31/20 24 10/31/2024 Compr ehens tia metab olic 2000 panel - Serum or Plasm a sodium [moles/volum e] in serum or plasma 140 mmol/ L low: 136mmo l/Lhig h: 145mmo l/L SODIU M 140 136 - 145 mmol/ L 10/31 2:28 PM CREDIT ASSISTANT [facility] Not Available Not Available 12/19/2024 12:21:14 10/31/20 24 10/31/2024 Compr ehens tia metab olic 1999 panel - Serum or Plasm a potassium [moles/volum e] in serum or plasma 3.7 mmol/ L low: 3.5mmo l/Lhig h: 5.1mmo l/L POTAS SIUM 3.7 3.5 - 5.1 mmol/ L 10/31 2:28 PM CREDIT ASSISTANT [facility] Not Available Not Available 12/19/2024 12:21:14 10/31/20 24 10/31/2024 Compr ehens tia metab olic 1999 panel - Serum or Plasm a chloride [moles/volum e] in serum or plasma 108 mmol/ L low: 98mmol /Lhigh : 107mmo l/L high CHLOR GLENN 108 (H) 98 - 107 mmol/ L 10/31 2:28 PM CREDIT ASSISTANT [facility] Not Available Not Available 12/19/2024 12:21:14 10/31/20 24 10/31/2024 Compr ehens tia metab olic 1999 panel - Serum or Plasm a carbon dioxide, total [moles/volum e] in serum or plasma 22 mmol/ L low: 22mmol /Lhigh : 30mmol /L CO2, VENOU S 22 22 - 30 mmol/ L 10/31 2:28 PM CREDIT ASSISTANT [facility] Not Available Not Available 12/19/2024 12:21:14 10/31/20 24 10/31/2024 Compr ehens tia metab olic 1999 panel - Serum or Plasm a anion gap in serum or plasma 13.7 mmol/ L high: 18mmol /L ANION GAP 13.7 <18.0 mmol/ L 10/31 2:28 PM CREDIT ASSISTANT [facility] Not Available Not Available 12/19/2024 12:21:14 10/31/20 24 10/31/2024 Compr ehens tia metab olic 2000 panel - Serum or Plasm a glucose [mass/volume ] in serum or plasma 128 mg/dL low: 70mg/d Lhigh: 99mg/d L high GLUCO SE 128 (H) 70 - 99 mg/dL 10/31 2:28 PM CREDIT ASS[facility] Not Available Not Available 12/19/2024 12:21:14 10/31/20 24 10/31/2024 Compr ehens tia metab olic 1999 panel - Serum or Plasm a urea nitrogen [mass/volume ] in serum or plasma 14 mg/dL low: 10mg/d Lhigh: 20mg/d L BUN 14 10 - 20 mg/dL 10/31 2:28 PM CREDIT ASS[facility] Not Available Not Available 12/19/2024 12:21:14 10/31/20 24 10/31/2024 Compr ehens tia metab olic 1999 panel - Serum or Plasm a creatinine [mass/volume ] in serum or plasma 0.84 mg/dL low: 0.6mg/ dLhigh : 1mg/dL CREAT ININE , BLOOD 0.84 0.60 - 1.00 mg/dL 10/31 2:28 PM CREDIT ASSISTANT [facility] Not Available Not Available 12/19/2024 12:21:14 10/31/20 24 10/31/2024 Compr ehens tia metab olic 1999 panel - Serum or Plasm a urea nitrogen/cre atinine [mass ratio] in serum or plasma 17 text: 12 - 20 ratio BUN/C REATI NINE RATIO 17 12 - 20 ratio 10/31 2:28 PM CREDIT ASSISTANT [facility] Not Available Not Available 12/19/2024 12:21:14 10/31/20 24 10/31/2024 Compr ehens tia metab olic 1999 panel - Serum or Plasm a protein [mass/volume ] in serum or plasma 7.4 g/dL low: 6.3g/d Lhigh: 8.2g/d L TOTAL PROTE IN 7.4 6.3 - 8.2 g/dL 10/31 2:28 PM [facility] Not Available Not Available 12/19/2024 12:21:14 10/31/20 24 10/31/2024 Compr ehens tia metab olic 1999 panel - Serum or Plasm a albumin [mass/volume ] in serum or plasma 4.3 g/dL low: 3.5g/d Lhigh: 5g/dL ALBUM IN 4.3 3.5 - 5.0 g/dL 10/31 2:28 PM CREDIT ASSISTANT [facility] Not Available Not Available 12/19/2024 12:21:14 10/31/20 24 10/31/2024 [facility] [employer] [facility] panel - Serum or Plasm a albumin/glob ulin [mass ratio] in serum or plasma 1.4 low: 1high: 2.2 A/G RATIO 1.4 1.0 - 2.2 10/31 2:28 PM CREDIT ASSISTANT [facility] Not Available Not Available 12/19/2024 12:21:14 10/31/20 24 10/31/2024 [facility] [employer] [facility] 1999 panel - Serum or Plasm a calcium [mass/volume ] in serum or plasma 9.3 mg/dL low: 8.7mg/ dLhigh : 10.5mg /dL CALCI UM 9.3 8.7 - 10.5 mg/dL 10/31 2:28 PM CREDIT ASSISTANT [facility] Not Available Not Available 12/19/2024 12:21:14 10/31/20 24 10/31/2024 [facility] [employer] [facility] 1999 panel - Serum or Plasm a bilirubin.to giovanna [mass/volume ] in serum or plasma 0.6 mg/dL low: 0.2mg/ dLhigh : 1.2mg/ dL T BILI 0.6 0.2 - 1.2 mg/dL 10/31 2:28 PM CREDIT ASSISTANT [facility] Not Available Not Available 12/19/2024 12:21:14 10/31/20 24 10/31/2024 [facility] [employer] 2000 panel - Serum or Plasm a aspartate aminotransfe rase [enzymatic activity/vol ume] in serum or plasma 16 U/L low: 5U/Lhi gh: 34U/L SGOT (AST) 16 5 - 34 U/L 10/31 2:28 PM CR[facility] ASS[facility]ANT [facility] [email or web address] Not Available Not Available 12/19/2024 12:21:14 10/31/20 24 10/31/2024 [employer] tia metab olic 1999 panel - Serum or Plasm a alanine aminotransfe rase [enzymatic activity/vol ume] in serum or plasma 17 U/L low: 0U/Lhi gh: 55U/L SGPT (ALT) 17 0 - 55 U/L 10/31 2:28 PM [facility] Not Available Not Available 12/19/2024 12:21:14 10/31/20 24 10/31/2024 [employer] tia metab olic 1999 panel - Serum or Plasm a alkaline phosphatase [enzymatic activity/vol ume] in serum or plasma 60 U/L low: 40U/Lh igh: 150U/L ALKAL INE PHOSP HATAS E 60 40 - 150 U/L 10/31 2:28 PM [facility] [email or web address] [facility] Not Available Not Available 12/19/2024 12:21:14 10/31/20 24 10/31/2024 [employer] tia metab olic 1999 panel - Serum or Plasm a glomerular filtration rate/1.73 sq M.predicted among non-blacks [volume rate/area] in serum, plasma or blood by creatinine-b ased formula (MDRD) low: 60 GFR, ESTIM ATED >60 >=60 10/31 2:28 PM CREDIT [facility] Not Available Not Available 12/19/2024 12:21:14 10/31/20 24 10/31/2024 [employer] tia metab olic 2000 panel - Serum or Plasm a glomerular filtration rate/1.73 sq M.predicted among blacks [volume rate/area] in serum, plasma or blood by creatinine-b ased formula (MDRD) low: 60 GFR, EST. AFRIC AN >60 >=60 10/31 2:28 PM CREDIT [facility] Not Available Not Available 12/19/2024 12:21:14 10/31/20 24 10/31/2024 Compr ehens tia metab olic 1999 panel - Serum or Plasm a glomerular filtration rate/1.73 sq M.predicted among non-blacks [volume rate/area] in serum, plasma or blood by creatinine-b ased formula (MDRD) low: 60 GFR, EST. NONAF RICAN >60 >=60 10/31 2:[address] [facility] Not Available Not Available 12/19/2024 12:21:14 10/31/20 24 10/31/2024 Compr ehens tia metab olic 1999 panel - Serum or Plasm a interpretati on and review of laboratory results Abnorm al Not Available Not Available 12:21:14 11/01/20 24 11/03/2024 Bacte fei ident ified in Stool by Cultu re bacteria identified in stool by culture NO SALMON MARIFER, SHIGEL LA OR E COLI 0157 ISOLAT ED CULTU RE RESUL TS NO SALMO CHONG , SHIGE LLA OR E COLI 0157 ISOLA ZACHARIAH 11/03 6:42 PM [facility] ASSIST[facility] Not Available Not Available 12/19/2024 12:21:14 11/01/20 24 11/03/2024 Bacte fei ident ified in Stool by Cultu re bacteria identified in stool by culture NEGATI VE FOR CAMPYL OBACTE R ANTIGE N CULTU RE RESUL TS NEGAT TIA FOR CAMPY LOBAC TER ANTIG EN 11/03 6:[address] [facility] Not Available Not Available 12/19/2024 12:21:14 11/01/20 24 11/03/2024 Bacte fei ident ified in Stool by Cultu re bacteria identified in stool by culture SHIGA TOXIN 1 AND SHIGA TOXIN 2 NOT DETECT ED CULTU RE RESUL TS SHIGA TOXIN 1 AND SHIGA TOXIN 2 NOT DETEC ZACHARIAH 11/03 6:[address] [facility] Not Available Not Available 12/19/2024 12:21:14 11/01/20 24 11/03/2024 Bacte fei ident ified in Stool by Cultu re bacteria identified in stool by culture Heavy Probab le usual kishore for this specim en source CULTU RE RESUL TS Heavy Proba ble usual kishore for this speci men sourc e 11/03 6:42 PM CREDIT ASSISTANT [facility] Not Available Not Available 12/19/2024 12:21:14 11/01/20 24 11/01/2024 Lacto jose n [Pres ence] in Stool lactoferrin [presence] in stool Negati ve text: negati ve STOOL WBC LACTO JOSE N Negat tia Negat tia 11/01 10:59 PM CREDIT ASSISTANT [facility] Not Available Not Available 12/19/2024 12:21:14 11/01/20 24 11/01/2024 Lacto jose n [Pres ence] in Stool interpretati on and review of laboratory results Normal Not Available Not Available 12/03 12:21:14 12/20/19 25 12/21/2024 NUSWA B VAGIN ITIS PLUS (VG+) atopobium vaginae LOW - 0 score Not Available [facility] ([facility]) [address] [place], [address], 12/22/2024 07:14:35 12/20/19 25 12/21/2024 NUA B VAGIN ITIS PLUS (VG+) bvab 2 LOW - 0 score Not Available [facility] ([facility]) [address] [place], [address], 12/22/2024 07:14:35 12/20/19 25 12/21/2024 NUA B VAGIN ITIS PLUS (VG+) megasphaera 1 LOW - 0 score Calcu late total score by [facility] the 3 indiv idual bacte rial vagin osis (BV) marke r score s toget her. Total score is inter prete d as follo ws: Total score 0-1: Indic ates the absen ce of BV. Total score 2: Indet ermin ate for BV. Addit ional clini conner data shoul d be evalu ated to estab freda a diagn osis. Total score 3-6: Indic ates the prese nce of BV. Not Available [facility] ([facility]) [address] [facility], [place], [address], 12/22/2024 07:14:35 12/20/19 25 12/21/2024 NUSWA B VAGIN ITIS PLUS (VG+) taurus albicans, OUMOU NEGATI VE negati ve Not Available [facility] ([facility]) [address] [facility], [place], [address], 12/22/2024 07:14:35 12/20/19 25 12/21/2024 NUSWA B VAGIN ITIS PLUS (VG+) taurus glabrata, OUMOU NEGATI VE negati ve Not Available [facility] ([facility]) [address] [facility], [place], [address], 12/22/2024 07:14:35 12/20/19 25 12/22/2024 NUA B VAGIN ITIS PLUS (VG+) trich vag by OUMOU NEGATI VE negati ve Not Available [facility] ([facility]) [address] [facility], [place], [address], 12/22/2024 07:14:35 12/20/19 25 12/22/2024 NUSWA B VAGIN ITIS PLUS (VG+) chlamydia trachomatis, OUMOU NEGATI VE negati ve Not Available [facility] ([facility]) [address] [place], [address], 12/22/2024 07:14:35 12/20/19 25 12/22/2024 NUSWA B VAGIN ITIS PLUS (VG+) neisseria gonorrhoeae, OUMOU NEGATI VE negati ve Not Available [facility] ([facility]) [address] [place], [address], 12/22/2024 07:14:35 11/01/20 24 11/01/2024 CT, head + brain , w/wo contr ast No observ ation record ed. SHANN[facility] [address], [place], [address], 11/03/2024 09:40:59 11/03/19 25 10/27/2024 CT, abdom en + pelvi s, w/ contr ast No observ ation record ed. [address] (Central Scheduling) [address], [place], [address], 11/23/2024 14:14:24 01/07/20 25 01/02/2025 CT, abdom en + pelvi s, w/ contr ast No observ ation record ed. [address] (Central Scheduling) [address], [place], [address], 01/06/2025 15:07:29 03/24/20 25 03/18/2025 US, pelvi s, trans abdom inal + trans vagin al No observ ation record ed. [facility] [address], [place], [address], 03/28/2025 17:54:55 Result Notes None recorded. Problems Name Problem SNOMED Code Status Onset Date Resolution Date Notes Provider Name and Address Organization Details Recorded Time Gastroesop hageal reflux disease without esophagiti s 694127881 Active 2019 THERESA HART NP Attn: Accounting ,[address] [facility], [place], [address] , [place] [facility] 4 18:48:32 Fatigue 36511240 Active 2019 THERESA HART NP Attn: Accounting ,[address] [facility], [place], [address] , [place] [facility] 4 18:48:32 Nausea 122049987 Active 2019 THERESA HART NP Attn: Accounting ,[address] [facility], [place], [address] , [place] [facility] 3 14:26:37 Seasonal allergy 901608868 Active 2019 THERESA HART NP Attn: Accounting ,[address] [facility], [place], [address] , [place] [facility] 4 18:48:32 Bilateral knee pain Active 2019 Not Available [facility] 3 09:54:10 Bilateral foot joint pain 0978937312617 9109 Active 2019 THERESA HART NP Attn: Accounting ,[address] [facility], [place], [address] , [place] [facility] 3 14:26:37 Neurologic al symptom 587971129 Active 2022 THERESA HART NP Attn: Accounting ,[address] [place], [address] , [place] [facility] 4 18:48:32 Bilateral stenosis of carotid arteries 788281237 Active 2022 THERESA HART NP Attn: Accounting ,[address] [place], [address] , [place] [facility] 4 18:48:32 Palpitatio ns 64121778 Active 2022 THERESA HART NP Attn: Accounting ,[address] [place], [address] , [place] [facility] 3 09:27:21 Left side sciatica 0743624441333 04 Active 2022 THERESA HART NP Attn: Accounting ,[address] [place], [address] , [place] [facility] 4 18:48:32 Thyroid nodule 590173851 Active 2022 THERESA HART NP Attn: Accounting ,[address] [place], [address] , [place] [facility] 4 18:48:32 Worms in stool 901380469 Active 2024 THERESA HART NP Attn: Accounting ,[address] [place], [address] , [place] [facility] 13:30:40 Enteritis of intestine 8911548172 Active 2024 THERESA HART NP Attn: Accounting ,[address] [place], [address] , [facility] - SI 13:30:44 Abdominal pain 79803031 Active 2024 THERESA HART NP Attn: Accounting ,[address] [place], [address] , [facility] 13:30:46 Diverticul osis of colon 197401027 Active 2024 THERESA HART NP Attn: Accounting ,[address] [place], [address] , [facility] 13:38:16 Notes:Some problems listed i n Document: #[id number] could not be added to this patient's chart. Please review this document and add these problems to the patient's chart manually as needed. Problem Notes None recorded. Procedures Surgical History Date Name Laterality Status Provider Name and Address Organization Details Recorded Time 09/07/20 24 Date of Last Mammogram completed Lorri Sorensen RN [facility] 09/09/2024 15:42:38 11/02/19 23 colonoscopy completed Suly Orourke MA [facility] 03/15/2024 16:03:04 07/10/20 19 Partial hysterectomy completed Suly Orourke MA [facility] 03/15/2024 15:58:28 09/15/20 18 Date of Last Pap Smear completed Suly Orourke MA [facility] 09/01/2022 09:58:17 11/02/19 17 biopsy of breast completed Miya Luna [facility] 09/04/2020 15:21:14 11/02/19 06 Tubal Ligation completed Mayte Vernon MA [facility] 05/12/2017 15:17:14 11/02/19 00 Breast Surgery completed Mayte Vernon MA [facility] 05/12/2017 15:18:16 Imaging Results None recorded. Procedure Notes None recorded. Medical Equipment None Reported. Allergies Allergen ID Allergen Name Allergen Category Reaction Reaction Severity Criticality Documentation Date Start Date Code Code System Note Provider Name and Address Organization Details Recorded Time 300921 metronida zole medicatio n other severe Not available 06/10/20232018 6922 RxNorm Mack Gambino MD Attn: Marina oliver,[address], [place], [address], [place] [facility] 4 21:10:13 32089 Flagyl medicatio n rash severe Not available 05/12/2017 6 RxNorm Mayte Vernon MA [facility], [place] - [facility] 7 15:11:18 Medications Name Sig Start Date Stop Date Status Note LastModified by Organization Details LastModified Time cyclobenza estuardo 10 mg tablet 06/08 completed Not Available Not Available Not Available amoxicilli n 500 mg capsule TAKE 2 CAPSULES BY MOUTH IMMEDIAT ANUJ THEN 1 CAPSULE BY MOUTH EVERY 6 HOURS UNTIL ALL TAKEN 03/15 completed Not Available Not Available Not Available diclofenac 3 % topical gel Apply by topical route for 30 days. 07/31 completed Not Available Not Available Not Available nystatin 100,000 unit/mL oral suspension SWISH AND SWALLOW 5 ML BY MOUTH FOUR TIMES DAILY 03/15 completed Not Available Not Available Not Available gabapentin 600 mg tablet 03/08 completed not taking Not Available Not Available Not Available clindamyci n HCl 300 mg capsule TAKE ONE CAPSULE BY MOUTH FOUR TIMES DAILY UNTIL ALL TAKEN 03/15 completed Not Available Not Available Not Available azithromyc in 250 mg tablet TAKE 2 TABLETS BY MOUTH EVERY 24 HOURS FOR 1 DAY THEN TAKE 1 TABLET BY MOUTH EVERY 24 HOURS FOR 4 DAYS 06/08 completed Not Available Not Available Not Available ibuprofen 800 mg tablet active Not Available Not Available Not Available Lidocaine Viscous 2 % mucosal solution APPLY 15 ML TO THE MOUTH OR THROAT EVERY 4 HOURS NEEDED FOR SORE THROAT 07/31 completed Not Available Not Available Not Available fluconazol e 150 mg tablet Take 1 tablet(s ) every day by oral route for 1 day. 10/19 completed Not Available Not Available Not Available sucralfate 1 gram tablet 07/31 completed Not Available Not Available Not Available phenazopyr idine 200 mg tablet TAKE 1 TABLET BY MOUTH THREE TIMES DAILY FOR 2 DAYS 10/19 completed Not Available Not Available Not Available metronidaz ole 0.75 % (37.5 mg/5 gram) vaginal gel Insert 1 applicat orful every day by vaginal route for 5 days. 06/21 completed Not Available Not Available Not Available ondansetro n HCl 4 mg tablet TK 1 T PO Q 6 H PRF NAUSEA OR VOM 06/08 completed Not Available Not Available Not Available prednisone 20 mg tablet 07/10 completed Not Available Not Available Not Available terconazol e 0.8 % vaginal cream Insert 1 applicat orful every day by vaginal route for 14 days. 02/25 completed Not Available Not Available Not Available sulfametho xazole 800 mg-trimeth oprim 160 mg tablet TAKE 1 TABLET BY MOUTH TWICE DAILY FOR 7 DAYS 07/31 completed Not Available Not Available Not Available omeprazole 40 mg capsule,de layed release Take 1 capsule( s) every day by oral route. 03/15 completed Not Available Not Available Not Available aspirin 81 mg tablet,del ayed release Take 1 tablet every day by oral route. 06/10 completed Not Available Not Available Not Available tramadol 50 mg tablet Take 1 tablet every 6 hours by oral route as needed. 07/10 completed Not Available Not Available Not Available metoclopra mide 5 mg tablet TAKE 1 TABLET BY MOUTH THREE TIMES DAILY BEFORE MEALS FOR 7 DAYS FOR NAUSEA OR VOMITING OR SENSATIO N OF SPINNING OR WHIRLING 06/21 completed Not Available Not Available Not Available DOK 100 mg capsule Take 1 capsule twice a day by oral route for 30 days. 09/04 completed Not Available Not Available Not Available amitriptyl ine 10 mg tablet 07/31 completed Not Available Not Available Not Available lorazepam 2 mg tablet 03/15 completed Not Available Not Available Not Available meclizine 25 mg tablet TAKE 1 TABLET BY MOUTH THREE TIMES DAILY NEEDED FOR DIZZINES S 06/21 completed Not taking Not Available Not Available Not Available phenazopyr idine 100 mg tablet 09/04 completed Not Available Not Available Not Available benzonatat e 100 mg capsule Take 1 capsule 3 times a day by oral route as needed. 02/12 completed Not Available Not Available Not Available cephalexin 500 mg capsule TAKE 1 CAPSULE BY MOUTH THREE TIMES DAILY FOR 10 DAYS FOR SKIN INFECTIO N 06/21 completed Not Available Not Available Not Available pantoprazo le 40 mg tablet,del ayed release TAKE 1 TABLET BY MOUTH EVERY DAY 06/08 completed Not Available Not Available Not Available ferrous sulfate 325 mg (65 mg iron) tablet Take 1 tablet twice a day by oral route for 30 days. 03/08 completed not taking Not Available Not Available Not Available Cipro 500 mg tablet Take 1 tablet every 12 hours by oral route for 7 days. 01/27 completed Not Available Not Available Not Available dexamethas one 4 mg tablet TAKE 1 TABLET BY MOUTH EVERY DAY FOR 7 DAYS 03/15 completed Not Available Not Available Not Available lidocaine 5 % topical patch APPLY 1 PATCH TO THE SKIN ONCE DAILY. REMOVE WITHIN 12 HOURS. WAIT 12 HOURS BEFORE REAPPLYI NG active Not Available Not Available No t Available gabapentin 300 mg capsule Take 1 capsule 3 times a day by oral route. 12/05 completed Not Available Not Available Not Available Lupron Depot 3.75 mg intramuscu lar syringe kit Inject 1 kit(s) by intramus cular route. 02/12 completed Not Available Not Available Not Available hydrocorti sone 2.5 % topical cream APPLY TOPICALL Y TO THE AFFECTED AREA TWICE DAILY 06/21 completed Not Available Not Available Not Available clindamyci n 2 % vaginal cream INSERT 1 APPLICAT ORFUL VAGINALL Y EVERY DAY FOR 7 DAYS 06/21 completed Not Available Not Available Not Available bisacodyl 5 mg tablet,del ayed release 07/31 completed Not Available Not Available Not Available mupirocin 2 % topical ointment APPLY TO THE AFFECTED AREA ON THE FACE THREE TIMES DAILY X 10 DAYS 06/21 completed Not Available Not Available Not Available ergocalcif gerry (vitamin D2) 1,250 mcg (50,000 unit) capsule TAKE 1 CAPSULE BY MOUTH 1 TIME A WEEK 10/19 completed Not Available Not Available Not Available ibuprofen 600 mg tablet TAKE 1 TABLET BY MOUTH EVERY 6 HOURS 09/04 completed Not Available Not Available Not Available polyethyle ne glycol 3350 17 gram/dose oral powder 09/04 completed Not Available Not Available Not Available methylpred nisolone 4 mg tablets in a dose pack FOLLOW PACKAGE DIRECTIO NS 10/19 completed Not Available Not Available Not Available albuterol sulfate HFA 90 mcg/actuat ion aerosol inhaler INHALE 2 PUFFS BY MOUTH EVERY 6 HOURS NEEDED FOR WHEEZING OR SHORTNES S OF BREATH active Not Available Not Available No t Available ketoconazo le 2 % topical cream APPLY TOPICALL Y TO THE AFFECTED AREA TWICE DAILY 06/21 completed Not Available Not Available Not Available ondansetro n 4 mg disintegra ting tablet Take 2 tablet(s ) every 12 hours by oral route as needed 06/21 completed Not Available Not Available Not Available doxycyclin e hyclate 100 mg tablet 02/12 completed Not Available Not Available Not Available dicyclomin e 10 mg capsule Take 1 capsule 3 times a day by oral route for 10 days. 01/27 completed Not Available Not Available Not Available naproxen 500 mg tablet Take 1 tablet twice a day by oral route as needed. 03/08 completed Not Available Not Available Not Available metoclopra mide 10 mg tablet TAKE 1 TAB BY MOUTH 3 TIMES A DAY NEEDED FOR HEADACHE FOR UP TO 5 DAYS 03/08 completed Not Available Not Available Not Available amoxicilli n 875 mg-potassi um clavulanat e 125 mg tablet TAKE 1 TABLET BY MOUTH TWICE DAILY FOR 10 DAYS 07/31 completed Not Available Not Available Not Available oxycodone 5 mg tablet 09/04 completed not taking Not Available Not Available Not Available Children's Ibuprofen 100 mg/5 mL oral suspension 10/13 completed Not Available Not Available Not Available ezetimibe 10 mg tablet TAKE 1 TABLET BY MOUTH DAILY active Not Available Not Available No t Available cyclobenza estuardo 5 mg tablet TAKE 1 TABLET BY MOUTH THREE TIMES DAILY FOR 10 DAYS active Not Available Not Available No t Available rosuvastat in 20 mg tablet TAKE 1 TABLET BY MOUTH EVERY NIGHT 03/15 completed Not Available Not Available Not Available nitrofuran toin monohydrat e/macrocry stals 100 mg capsule Take 1 capsule every 12 hours by oral route as directed for 10 days. 11/03 /2020 completed Not Available Not Available Not Available duloxetine 20 mg capsule,de layed release 06/08 completed Not Available Not Available Not Available lactulose 10 gram/15 mL oral solution 03/08 completed wants refill Not Available Not Available Not Available pregabalin 50 mg capsule 06/21 completed Not Available Not Available Not Available GaviLyte-G 236 gram-22.74 gram-6.74 gram-5.86 gram oral solution 03/08 completed Not Available Not Available Not Available M-PAP 160 mg/5 mL oral liquid 07/31 completed Not Available Not Available Not Available Vitals Date Recorded Body height Body mass index (BMI) Body weight Oxygen saturation Oxygen saturation in Arterial blood by Pulse oximetry Heart rate Respiratory rate Body temperature Systolic blood pressure Diastolic blood pressure Provider Name and Address Organization Details Last Updated DateTime 5 162.56 cm 24.8 kg/m2 73742.4 5 g 97 % 97 % 87 /min 16 /min 97.5 [degF] 96 mm[Hg] 58 mm[Hg] Marianna Mari LPN [facility] 5 11:07:32 Date Recorded Body height Body mass index (BMI) Body weight Body temperature Respiratory rate Heart rate Oxygen saturation Oxygen saturation in Arterial blood by Pulse oximetry Systolic blood pressure Diastolic blood pressure Provider Name and Address Organization Details Last Updated DateTime 5 162.56 cm 23.6 kg/m2 24119.2 3 g 96.9 [degF] 16 /min 70 /min 97 % 97 % 114 mm[Hg] 69 mm[Hg] Flaquita Maldonado MA [facility] 5 12:32:22 Date Recorded Body height Body mass index (BMI) Body weight Heart rate Systolic blood pressure Diastolic blood pressure Provider Name and Address Organization Details Last Updated DateTime 5 162.56 cm 23.5 kg/m2 99943.4 4 g 72 /min 132 mm[Hg] 78 mm[Hg] Suly castellon MA [facility] 5 16:23:33 Date Recorded Body height Body mass index (BMI) Body weight Oxygen saturation Oxygen saturation in Arterial blood by Pulse oximetry Heart rate Respiratory rate Body temperature Systolic blood pressure Diastolic blood pressure Provider Name and Address Organization Details Last Updated DateTime 5 162.56 cm 23.6 kg/m2 77416.3 g 96 % 96 % 79 /min 16 /min 97.1 [degF] 91 mm[Hg] 58 mm[Hg] Eliz Langston MA [facility] 5 14:33:04 Date Recorded Body height Body mass index (BMI) Body weight Oxygen saturation Oxygen saturation in Arterial blood by Pulse oximetry Heart rate Respiratory rate Body temperature Systolic blood pressure Diastolic blood pressure Provider Name and Address Organization Details Last Updated DateTime 4 162.56 cm 24.4 kg/m2 02618.8 7 g 99 % 99 % 77 /min 15 /min 97 [degF] 98 mm[Hg] 63 mm[Hg] Marianna Mari LPN [facility] 4 12:42:45 Social History Question Answer Notes LastModified by Organizat ion Details LastModified Time Tobacco Smoking Status Never Smoker Mayte Vernon MA [facility], [facility] 05/12/2017 15:16:27 Do You Have An Advance Directive? No Information not available 03/08/2021 Are You Blind Or Do You Have Difficulty Seeing? No Information not available 10/13/2023 What Is Your Level Of Caffeine Consumption? Occasional Coffee Information not available 10/13/2023 How Much Tobacco Do You Chew? None [email or web address] Information not available 09/04/2020 In The 14 Days Before Symptom Onset, Have You Had Close Contact With A Laboratory-confir med COVID-19 While That Case Was Ill? No Information not available 09/04/2020 In The 14 Days Before Symptom Onset, Have You Had Close Contact With A Person Who Is Under Investigation For COVID-19 While That Person Was Ill? No [email or web address] Information not available 09/04/2020 Have You Been To An Area Known To Be High Risk For COVID-19? No [email or web address] Information not available 09/04/2020 Are You Deaf Or Do You Have Serious Difficulty Hearing? No Information not available 10/13/2023 What Type Of Diet Are You Following? REGULAR No Fried Foods Information not available 10/30/2020 Which Illicit Or Recreational Drugs Have You Used? Denies [email or web address] Information not available 09/04/2020 Education 12 Some College [email or web address] Information not available 09/04/2020 Are There Any Guns Present In Your Home? No [email or web address] Information not available 09/04/2020 Marital Status Single [email or web address] Informatio n not available 09/04/2020 What Was The Date Of Your Most Recent Tobacco Screening? 01/27/2025 Information not available 01/27/2025 Performs Monthly Self-breast Exam? No [email or web address] Information no t available 09/04/2020 Do You Have Any Pets? No Information not available 10/13/2023 What Is Your Relationship Status? Information not available 03/08/2021 Do You Use Your Seat Belt Or Car Seat Routinely? No Information not available 03/08/2021 Seat Belts Used Routinely Yes [email or web address] Information not available 09/04/2020 Are You Sexually Active? Yes [email or web address] Information not available 07/10/2021 Smoke Alarm In Home Yes [email or web address] Information not available 09/04/2020 Do You Have Smoke And Carbon Monoxide Detectors In Your Home? Yes Information not available 03/08/2021 Are You Passively Exposed To Smoke? No Information no t available 03/08/2021 How Much Tobacco Do You Smoke? No [email or web address] Information not available 09/04/2020 General Stress Level Low Information not available 10/30/2020 Do You Use Sunscreen Routinely? No [email or web address] Information not available 09/04/2020 Has Tobacco Cessation Counseling Been Provided? Yes Information not available 01/27/2025 On What Date Was Tobacco Cessation Counseling Provided? 01/27/2025 Information not available 01/27/2025 Sex: Female Functional Status Question Answer Note LastModified by Organization Details LastModified Time Do you use any illicit or recreational drugs? No Information not available 03/08/2021 Do you or have you ever used any other forms of tobacco or nicotine? No [email or web address] Information not available 07/10/2021 What is your level of alcohol consumption? Occasional Information not available 10/13/2023 Do you or have you ever used smokeless tobacco? Never used smokeless tobacco [email or web address] Information not available 09/04/2020 What is your occupation? unemployed [email or web address] Information not available 09/04/2020 Do you or have you ever used e-cigarettes or vape? Never used electronic cigarettes [email or web address] Information not available 09/04/2020 What is your exercise level? Moderate hard w/ knee pain Information not available 10/13/2023 What type of noise exposure are you exposed to? [email or web address] Infor mation not available 10/13/2023 Mental Status Question Answer Note LastModified by Organization D etails LastModified Time Do you feel stressed (tense, restless, nervous, or anxious, or unable to sleep at night)? [id number] Information not available 03/08/2021 Family History Relationship Description Onset Age of this Age Resolved Age Notes LastModified by Organization Details LastModified Time Mother Hypertensive disorder [email or web address] Not available 05/02 15:15:01 Mother erobbinsma Not available 02/12/2019 10:48:25 Mother Heart disease 72 [email or web address] Not available 09/04 15:18:10 Father Hypertensive disorder [email or web address] Not available 05/02 15:15:07 Sister Hypertensive disorder [email or web address] Not available 05/02 15:15:13 Sister Malignant tumor of breast [email or web address] Not available 05/02 15:15:58 Maternal Grandfather Hypertensive disorder ccampbellma Not available 05/02 15:15:19 Maternal Grandmother Hypertensive disorder ccampbellma Not available 05/02 15:15:23 Brother Diabetes mellitus [email or web address] Not available 05/02 15:15:35 Brother Heart disease 52 [email or web address] Not available 09/04 15:18:14 Brother Malignant neoplastic disease erobbinsma Not available 02/12 10:48:40 Notes:NO new reported Medical History Condition Response Coronary Artery Disease Y High Blood Pressure N Atrial Fibrillation N Thyroid Problems N Kidney or Bladder Problems Y GI Problems N Depression N COPD N Blood Clots N Skin Problems N Eating Disorder N Anemia N Heart Attack ([place]) N Anxiety Disorder N Diabetes N Muscle, Joint, or Bone Problems Y Arthritis Y Seizures/Epilepsy N Acid Reflux (GERD) Y Cancer N Stroke N Asthma N Allergies Y Substance Abuse N High Cholesterol Y Hepatitis N Liver Disease N Schizophrenia N Headaches Y Hypertension N Heart Failure N Osteoporosis N Gynecological History Statement/Question Response Date of Last Mammogram 09/07/2024 Flow Heavy Date of LMP 07/03/2019 On BCP's at Conception? N STIs/STDs N Duration of Flow (days) 6 Age at Menarche 11 Current Control Method Tubal Ligat ion Age at First Child 18 Sexually Active? Y Menses Monthly Y Date of Last Pap Smear 09/15/2018 Sexual Problems? N LMP Definite Obstetrics History GPAL:G 7 P 0 0 5 2 Type Value Induced 3 Spontaneous 1 Living 2 Ectopics 1 Total 7 Past Encounters Encounter ID Performer Location Encounter Start Date Encounter Closed Date Diagnosis/Indication Diagnosis SNOMED-CT Code Diagnosis ICD10 Code Diagnosis Note [id number] MD Karissa Barroso (RUST 205) [address] [place] [address] 04/22/2017 13:52:20 04/23/2017 08:55:47 Adult health examination 113084112 Z00.00 Counseled on the importance of healthy diet and exercise for weight loss. Fasting lab work. Advised adequate calcium intake through dairy and dark leafy vegetables . Adequate hydration and decrease intake of soda and other processed foods consumed. Neuropathy 112651274 G62 .9 Will do blood work-start Gabapentin trial-f/u one month [id number] Rosina Ocampo [facility] Karissa Holt (ECTOR 122) [address] [place] [address] 05/12/2017 15:01:22 05/13/2017 14:14:03 Vaginal odor 606321815 N89.8 At [facility] risk of urinary tract infection 296274187 Z91.89 Pain in pelvis 92311656 R10.2 [id number] MD Karissa Barroso (RUST 205) [address] [place] [address] 05/28/2017 14:49:37 05/29/2017 08:57:33 Numbness of lower limb 430907491 R20.0 Counseled on differenti als-will do dopplers of bilateral extremitie s-will refer once testing completed- this was discussed with patient-wi ll continue on Gabapentin /Ibuprofen (has). advised to use Tramadol only for severe pain [id number] Rosina Ocampo [facility] Karissa Holt (RUST 122) 2 [facility] [place] [address] 06/02/2017 11:33:25 06/02/2017 12:21:27 Uterine leiomyoma 67074060 D25.9 [id number] MD Karissa Medina (RUST 205) 2 [facility] [place] [address] 07/03/2017 11:52:00 07/03/2017 15:40:04 Uterine leiomyoma 45417855 D25.9 Dysmenorrhea 992638250 N 94.6 Menorrhagia 100358358 N9 2.0 [id number] MD Karissa Barroso (RUST 205) 2 [facility] [place] [address] 10/07/2017 14:32:00 10/08/2017 09:43:58 Headache 36703030 R51 Resolved-a dvised to stay away from triggers and return for any new or worsening s/s [id number] MD Karissa Barroso (RUST 122) 2 [facility] [place] [address] 10/16/2017 09:29:48 10/19/2017 08:57:34 Chest pain 86292288 R07.9 sent to ER-complai nts of chest pain, dizziness, fatigue and nausea [id number] Rosina Ocampo [facility] Karissa Holt (RUST 122) 2 [facility] [place] [address] 10/22/2017 16:41:36 10/28/2017 14:26:37 Breast lump 32520753 N63.0 [id number] MD Karissa Morales (RUST 122) 2 [facility] [place] [address] 11/09/2017 11:35:55 11/09/2017 15:48:52 Endometriosis (clinical) 519280684 N80.9 Discussed treatment with depo lupron- pt states she will further discuss this option with her . She has tried OCPs and depo-prove ra for treatment which have been unsuccessf ul.Patient desires referral to [facility] to discuss minimally invasive surgery for uterine leiomyoma secondary to her history of abdominopl asty. Uterine leiomyoma 937962 05 D25.9 [id number] MD Karissa Barroso ([place] [address]) 2 [facility] [address] [facility] [place] [address] 01/14/2018 14:03:43 01/14/2018 16:09:29 Upper respiratory infection 66846894 J06.9 Counseled on URI-Warm salt water gargles, rest, increase fluids. Over the counter decongesta nt/Mucinex . Take Tessalon perles only for severe cough or at bedtime-Ty lenol/Ibup rofen for pain/fever , humidifier in the house. Advised to return for any worsening or new s/s-pt educated on viral vs bacterial and not using antibiotic s at this time [id number] MD Karissa Morales ([place] [address]) 2 [facility] [place] [address] 02/24/2018 14:25:06 02/26/2018 13:05:29 Vaginal discharge problem 924455850 N89.9 Increased frequency of urination 529962369 R35.0 [id number] MD Karissa Barroso ([place] [address]) 2 [facility] [place] [address] 02/25/2018 15:01:21 02/26/2018 15:54:11 Atypical chest pain 371913185 R07.89 Counseled on chest pain, testing and referral to cardiology for evaluation -advised to go to ER for any chest pain-short ness of breath, diaphoresi s or worsening of current s/s [id number] MD Karissa Morales 14 OB [address] [facility] [address] [place] [address] 09/15/2018 11:12:03 09/16/2018 17:17:03 Gynecologic examination 00538096 Z01.419 CBE and pap smear performed Screening mammography 24 934449 Z12.31 Bacterial vaginosis 4197 89360 N76.0 Uterine leiomyoma 856641 05 D25.9 Does not desire interventi on at this time. [id number] MD Karissa Barroso 14 IM 4 [facility] [place] [address] 02/12/2019 10:28:06 02/14/2019 09:33:36 Hypersomnia 53673555 G47.10 will do lab work-any worsening of s/s to go to ER-? 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 Encouraged low fat diet, no alcohol or caffeinate d beverages. Referral to GI-avoid use of NSAIDS-Tyl enol as needed [id number] MD Saba Kelly (Adult Med) [address] [place] [address] 09/04/2020 08:42:29 09/05/2020 12:46:37 Adult health examination 203455337 Z00.01 Encouraged routine ARCH CUSHION SKIVING MACHINE OPERATOR, vision, dental exams, well balanced diet. Fatigue 81090603 R53.83 check labshx of anemia may need sleep study Gastroesop hageal reflux disease without esophagitis 579825921 K21.9 dwp cont gerd diet, and ppi Nausea 157567788 R11.0 prn zofran Seasonal allergy 3145217 04 J30.2 eyes, dwp start with testing, may take drops otc or PO antihistam ine [id number] MD Saba Kelly (Adult Med) [address] [place] [address] 10/30/2020 08:18:37 11/01/2020 14:29:15 Bilateral knee pain 4206192617 0462878 M25.561 M25.562 hx of bilateral knee pain, was seen by ortho many years ago, had cortisone shot in past Bilateral foot joint pain 4265319175 5885317 M79.671 M79.672 increased pain, has seen podiatry in past, would like a new referral to go back [id number] MD Saba Kelly (Adult Med) [address] [place] [address] 03/08/2021 15:33:04 03/11/2021 10:06:56 Sleep pattern disturbance 48396632 G47.9 dwp referral to sleep medicine, rojelioworth to be completed Excessive growth of facial hair 961932718 L68.2 dwp to talk to gyne regarding hormone replacemen t for menopause need to have records release signed to get recent notes from [facility] [id number] MD Karissa Morales 14 OB [address] [facility] [place] [address] 07/10/2021 14:33:56 07/12/2021 07:04:01 Gynecologic examination 28660073 Z01.419 CBE and pelvic exam performed Vaginal discharge 887406 006 N89.8 Pain in pelvis 23210545 R10.2 At [facility] risk of urinary tract infection 565776528 Z91.89 [id number] [facility] [address] [place] [address] 02/25/2022 11:57:33 02/26/2022 15:17:11 Idiopathic peripheral neuropathy 31689929 G60.8 [id number] MD Karissa Morales 14 OB [address] [facility] [place] [address] 06/08/2023 16:55:33 07/04/2023 09:46:32 Screening mammography 46070161 Z12.31 Vaginal discharge 111119 [address] david on intercourse 083692102 N89.8 --Declines interventi on Gynecologi c examination 26784256 Z01.419 --CBE and pelvic exam performed- -Pt is s/p hysterecto my [id number] Fausto Velazco MD [facility] [address] [place] [address] 06/10/2023 13:59:03 06/22/2023 13:16:21 Bilateral stenosis of carotid arteries 541589432 I65.23 Dr. mitchell Renaldo following and managing care. Patient requesting referral for new cardiologi . Neurological symptom 308 971381 R29.90 Adult heal th examination 316045145 Z00.00 - Discussed with patient findings, diagnoses, and prognosis. - Discussed plan of care including treatment options, risks, and benefits with patients. Patient expressed understand ing.- The following interventi ons were recommende d: heart healthy low-fat, low-sodium diet, ideal body weight, regular exercise, medication s compliance , and medical follow-up as noted. Diabetes m ellitus screening 269107030 Z13.1 Hyperlipidemia 82168209 E78.5 Palpitations 70130541 R0 0.2 [id number] Fausto Velazco MD [facility] [address] [place] [address] 06/30/2023 14:41:37 07/02/2023 08:39:14 Left side sciatica 4731080284 66060 M54.32 - Apply heat to low back 10-15 minutes 3 times a day. - No heavy lifting over 10 LBS. - Stretching exercises per handout twice daily. ( take muscle relaxer/pa in med- 15 min prior) - Avoid bending or twisting at the waist; keep hips and shoulders aligned at all times.- Avoid sitting if possible, unless it feels better than standing. - Do not do anything that makes your symptoms worse. - RTC for worsening symptoms Thyroid nodule 802852429 E04.1 - Patient states she has an appointmen t 08/31 with an Endocrinol ogist at [facility]. Patient states she was told she would need an US prior to seeing the specialist . Overweight 548490266 E66 .3 [id number] Fausto Velazco MD [place] 2 [facility] [address] [place] [address] 07/31/2023 15:40:16 08/04/2023 11:58:13 Ulcer of mouth 73565685 K12.1 Middle ear effusion 1004 118624 H74.8X2 Vertigo 042320767 R42 - Patient encourage to schedule and keep appointmen t with cardiologi st, neurologis t and endocrinol ogist [id number] Enrique Enciso MD [facility] ([facility]) [address] [place] [address] 10/13/2023 16:01:11 10/15/2023 08:52:07 Dysfunction of left eustachian tube 7960585560 643244 H69.92 Facial swelling 89013274 6 R22.0 no swelling today follow back if it recurs [id number] Mack Gambino MD [place] 14 OB 4 [facility] [address] [place] [address] 03/15/2024 15:35:41 03/18/2024 12:00:13 Screening mammography 27170943 Z12.31 Bacterial vaginosis 4197 31357 N76.0 Gynecologi c examination 04167070 Z01.419 --CBE and pelvic exam performed- -Pt is s/p hysterecto my Overweight 918752479 E66 .3 Depression screening 171 388224 Z13.31 PHQ9=0 [id number] Fausto Velazco MD [facility] [address] [place] [address] 06/21/2024 11:44:49 06/28/2024 08:29:12 Thyroid nodule 185133093 E04.1 The patient has not attended scheduled appointmen ts with their endocrinol ogist.Enco urage the patient to reschedule missed endocrinol ogist appointmen Francheska cadena the importance of regular follow-ups for effective management . Left side sciatica 08358 35687 07519 M54.32 - Apply heat to low back 10-15 minutes 3 times a day. - No heavy lifting over 10 LBS. - Stretching exercises per handout twice daily. ( take muscle relaxer/pa in med- 15 min prior) - Avoid bending or twisting at the waist; keep hips and shoulders aligned at all times.- Avoid sitting if possible, unless it feels better than standing. - Do not do anything that makes your symptoms worse. - RTC for worsening symptoms Bilateral stenosis of carotid arteries 998934152 I65.23 Dr. Macario following and managing care. Last saw Dr. Macario on 06/20/24 [id number] MD Karissa Morales [address] [place] [address] Dr Barney [address] [place] [address] 07/19/2024 10:55:20 07/25/2024 06:47:44 Vaginal discharge 380734661 N89.8 Educated patient on vulvar hygiene and use condoms during sex. swab obtained and sent to lab.Pt educated on management and medication . Pt notified to call office if symptoms worsen or if symptoms continue after treatment. Pt educated on prevention of yeast infections . Dysuria 16329787 R30.0 Pt educated on UTI management and medication including side effects. Pt educated on prevention of uti's. Pt educated on warning signs and notified when to call office. High risk sexual behavior 450307301 Z72.51 Nuswab collected and sent to lab. Counseled on safe sex, condom use and STD precaution s discussed screening completed per patient's request [id number] MD Karissa Morales [address] [place] [address] Dr Barney [address] [place] [address] 09/26/2024 15:18:01 10/03/2024 11:51:09 At increased risk of urinary tract infection 130777768 Z91.89 Pain in pelvis 62657515 R10.2 --If negative and pain continues will obtain pelvic ultrasound Overweight 578124069 E66 .3 [id number] MD Karissa Morales [address] Barney [address] [place], [place] [address] [address] 10/17/2024 16:56:42 10/20/2024 09:56:57 Pain in pelvis 51972533 R10.2 --PCP appointmen t 10/19/24 Body mass index 20-24 - normal 423828625 Z68.24 [id number] Fausto Velazco MD [facility] [address] [place] [address] 10/19/2024 12:25:14 11/03/2024 14:33:10 Bilateral stenosis of carotid arteries 934718016 I65.23 Dr. Macario following and managing care. Last saw Dr. Macario on 06/20/24 Pain radia ting to head 475027957 R51.9 [id number] Fausto Velazco MD [facility] [address] [place] [address] 11/09/2024 10:54:17 11/10/2024 11:24:27 Diverticulosis of colon 752120395 K57.30 Found on colonoscop y on 06/18/2023 . The patient may be experienci ng symptoms related to diverticul osis, such as abdominal discomfort or bloating. Recommende d a high-fiber diet to prevent constipati on, which can exacerbate diverticul osis. Encouraged whole grains, fruits, vegetables , and legumes.Em phasized the importance of drinking plenty of water to help manage bowel function and prevent constipati on.Avoid seeds, nuts, and popcorn: These foods are often avoided by patients with diverticul osis, though recent evidence suggests this may not be necessary for all individual s. Discuss dietary preference s and adjust recommenda tions based on symptoms.L ow-residue diet during flare-ups: In cases of acute symptoms (e.g., pain or bloating), consider recommendi ng a temporary low-residu e diet to allow the digestive system to rest. Abdominal pain 62904682 R10.9 Likely related to ongoing gastrointe stinal issues.Dif ferential includes diverticul osis, enteritis, and possible parasitic infection. Follow-up appointmen t scheduled for December will be critical in exploring the ongoing abdominal symptoms. Enteritis of intestine 8823053460 K52.9 Diagnosed in the ER on 10/31/2024 . Likely contributi ng to abdominal pain, nausea, and frequent bowel movements. Continue supportive care for enteritis, including hydration and a bland diet (low-resid ue diet). Worms in stool 730398844 R19.5 Based on the patient's report of seeing worms in stool, a stool sample was obtained at the hospital to evaluate for ova and parasites. Awaiting the results to confirm or rule out a parasitic infection. [id number] Fausto Velazco MD [facility] [address] [place] [address] 12/05/2024 12:12:35 12/20/2024 15:43:53 Diverticulosis of colon 992051990 K57.30 Found on colonoscop y on 06/18/2023 . The patient may be experienci ng symptoms related to diverticul osis, such as abdominal discomfort or bloating. Recommende d a high-fiber diet to prevent constipati on, which can exacerbate diverticul osis. Encouraged whole grains, fruits, vegetables , and legumes.Em phasized the importance of drinking plenty of water to help manage bowel function and prevent constipati on.Avoid seeds, nuts, and popcorn: These foods are often avoided by patients with diverticul osis, though recent evidence suggests this may not be necessary for all individual s. Discuss dietary preference s and adjust recommenda tions based on symptoms.L ow-residue diet during flare-ups: In cases of acute symptoms (e.g., pain or bloating), consider recommendi ng a temporary low-residu e diet to allow the digestive system to rest. [id number] Mack Gambnio MD [place] [address] 4 [facility] [address] [address] 12/20/2024 16:12:08 12/21/2024 11:04:09 Pain in pelvis 19134129 R10.2 Dysmenorrhea 927683932 N 94.6 --Discusse d psychologi conner pain associated with sex that is undesired Body mass index 20-24 - normal 870510819 Z68.24 [id number] Fausto Velazco MD [facility] [address] [place] [address] 01/27/2025 14:21:58 02/08/2025 11:20:02 Diverticulosis of colon 359629200 K57.30 Patient encourage to schedule and keep appointmen t with GI Fatigue 60242654 R53.83 - try to get regular exercise. But don't overdo it. Go back and forth between rest and exercise. - Get plenty of rest. - Eat a healthy diet. Do not skip meals, especially breakfast. - Reduce your use of caffeine, tobacco, and alcohol. Health Concerns Section Related Observation LastModified by Organization Detai ls LastModified Time None Recorded Concern Status LastModified by Organization Details LastModified Time None Recorded Advance Directives Directive N: Payers Insurance Date Sequence Insurance Name Policy Number Policy Lee Covered Member ID Lee Member ID Guarantor Name 10/18/2018 PAYMENT PLAN Andria Magaña 03/14/2025 1 [facility] [id number] Andria Magaña [id number] Andria Magaña 03/07/2025 2 *SELF PAY* Vi ctoria Gómez 03/07/2025 1 [facility] - DOS PRIOR TO 2021 (MEDICAID REPLACEMENT - HMO) Andria Magaña [id number] Andria Magaña 03/07/2025 2 [facility] - DOS ON OR AFTER 21 (MEDICAID REPLACEMENT - HMO) Andria Magaña [id number] Andria Magaña 04/03/2025 1 [place] [facility] Andria Magaña [id number] Andria Magaña 03/07/2025 1 [place] [facility] Andria Magaña [id number] Andria Magaña 03/07/2025 1 [facility] (MEDICAID HMO) Andria Magaña [id number] Andria Magaña Notes Date Note Type Note Provider Name and Address Organization Details Recorded Time 10/19/2024 text/html HeadacheReported bypatient.Location:uni lateral (left) Quality:not similar to previous headaches;aching;pain( sharp) Severity:moderate Onset/Timing:still present Context:not related to trauma Associated Symptoms:no confusion; no slurred speech;nausea Ms. Magaña presents with a chief complaint of a sharp headache persisting for the past two weeks. The headache is primarily localized to the left side of the head and radiates down to the left shoulder. Associated symptoms include nausea and blurred vision, which have been ongoing for the same duration. The patient denies any history of trauma, fever, or recent illness. Exacerbating and alleviating factors are unclear THERESA HART NP Attn: Accounting,[address] [place], [address], [facility] 11/03/2024 01:02:50 11/09/2024 text/html Abdominal PainRe ported bypatient.Location:LLQ ; RLQ Quality:pain;sharp;sta bbing Severity:moderate Duration:intermittent Modifying Factors:moving bowels Associated Symptoms:no fever; no chills; no blood in the urine; no heartburn; no shortness of breath Ms. Magaña presents for follow-up after an ER visit on 10/31/2024 due to ongoing abdominal pain. The patient reports that the abdominal pain, which has been present for several months, is localized to the left lower quadrant and described as mildly severe. In addition to the abdominal pain, the patient complains of nausea without vomiting. She reports experiencing frequent bowel movements over the course of several months. The patient is scheduled to see a gastrointestinal (GI) specialist in December for further evaluation. An abdominal CT scan, ordered by her SECURITY SITE SUPERVISOR on 10/27/2024, showed evidence of enteritis. The patient was diagnosed with enteritis during the ER visit on 10/31/2024. The patient also mentions having observed worms in her stool, although she denies any blood in her stool. Additionally, the patient reports sharp, stabbing pains in the vaginal and anal areas. A colonoscopy performed on 06/18/2023 revealed diverticulosis, but otherwise, the results were normal. THERESA HART NP Attn: Accounting,[address] [place], [address], [facility] 11/09/2024 13:49:19 12/05/2024 text/html Abdominal PainRe ported bypatient.Location:LLQ ; LUQ Quality:bloating;cramp ing;sharp Severity:moderate Duration:intermittent Onset/Timing:worse; wax/wane Associated Symptoms:no fever; no chills; no blood in the urine; no heartburn; no shortness of breath Ms. Magaña presents with ongoing abdominal pain and reports minimal improvement with dicyclomine, which she has discontinued. She has not yet followed up with a gastroenterology (GI). THERESA HART NP Attn: Accounting,[address] [place], [address], [facility] 12/20/2024 15:23:58 12/20/2024 text/html Patient presents with the complaint of pain during sex. She states that she is in severe pain during sex and for days after. She also admits to bleeding with sex that has resolved. Mack Gambino MD Attn: Accounting,[address] [place], [address], [facility] 12/20/2024 17:47:12 01/27/2025 text/html [facility]. [facility] with ongoing severe fatigue and GI symptoms. She reports nausea worsened by eating, with some relief after bowel movements. Fatigue is significant enough to interfere with her ability to work. She requests labs, including Vitamin D. THERESA HART NP Attn: Accounting,[address] [facility], [place], [address], [facility] 02/07/2025 13:19:11 OBGyn Episode Ob Episode Information Episode Created Date Number of Fetuses Patient Bloodtype Patient rh Status Prepregnancy Weight lbs Domestic Partner Domestic Partner Phone Father Name Library Manager Status 09/04/20 20 1 CLOSED Fetus Data First Name Last Name Admitted to NICU Weight (g) Sex Living Outcome Pediatric Complications Fetus ID Race Codes [place] Delivery [place] [id number] Vaginal Yariel Calculation Initial Yariel Date Initial Exam Date Initial Exam Provider Initial Ultrasound Date Last Menstrual Period Date Ultra Sound Weeks Gestation 0 Eighteen To Twenty Week Yariel Update Ultra Sound Date Fundal Height At Umbil Quickening Date Ultra Sound Latest Weeks Gestation Final Yariel Confirmed By Final Yariel Confirmed Date Final Yariel Date Ultra Sound Latest Days Gestation 0 0 Menstrual History Last Menstrual Date Menses Monthly On Bcp Conception Prior Menses Frequency Hcg Plus Date Menarche Onset Age Delivery Information Delivery Date Delivery Type Labor Anesthesia Weeks Gestation Incision Type Labor Labor Length Hrs Delivered By Post Complications Tubal Sterilization Discharge Date Comments 8 Discharge Information Feeding Method Contraceptive Method Maternal HG B and HCT Levels Ob Episode Information Episode Created Date Number of Fetuses Patient Bloodtype Patient rh Status Prepregnancy Weight lbs Domestic Partner Domestic Partner Phone Father Name Library Manager Status 09/04/20 20 1 CLOSED Fetus Data First Name Last Name Admitted to NICU Weight (g) Sex Living Outcome Pediatric Complications Fetus ID Race Codes Race Delivery Type M Full Term [id number] Vaginal Yariel Calculation Initial Yariel Date Initial Exam Date Initial Exam Provider Initial Ultrasound Date Last Menstrual Period Date Ultra Sound Weeks Gestation 0 Eighteen To Twenty Week Yariel Update Ultra Sound Date Fundal Height At Umbil Quickening Date Ultra Sound Latest Weeks Gestation Final Yariel Confirmed By Final Yariel Confirmed Date Final Yariel Date Ultra Sound Latest Days Gestation 0 0 Menstrual History Last Menstrual Date Menses Monthly On Bcp Conception Prior Menses Frequency Hcg Plus Date Menarche Onset Age Delivery Information Delivery Date Delivery Type Labor Anesthesia Weeks Gestation Incision Type Labor Labor Length Hrs Delivered By Post Complications Tubal Sterilization Discharge Date Comments 4 Discharge Information Feeding Method Contraceptive Method Maternal HG B and HCT Levels
--- OUTSIDE RECORDS SUMMARY | 2025-04-20 07:41 | XMS_ITS | Encounter Summary ---
Author Organization [facility] Health Address [address] [place] [address] Care Team Providers Care Machine Edge Bander Name Role Phone Alie Stack EMBROIDERER-INDUSTRIAL LABORER Primary Care Provider Encounter Details Date Type Department Care Team (Late st Contact Info) Description 08/04/2018 [facility] Outpatient Visit [facility] [address] [place] [address] [place] [id number] [address] Social History Tobacco Use Types [...] documented as of this encounter Care Teams Machine Edge Bander Relationship Specialty Start Date End Date Alie Stack, EMBROIDERER-INDUSTRIAL LABORER [address] [facility] [address] [place] [phone] PCP - General 11/19/21 documented as of this encounter
--- OUTSIDE RECORDS SUMMARY | 2025-04-20 07:41 | XMS_ITS | CONTINUITY OF CARE DOCUMENT ---
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 completed - Dov Macario DO Syncope vasovagal [...] In-person encounter Office Visit Dov Macario DO [facility] Office Leukopenia to see hematologi . 2 - 2 In-person encounter Office Visit Dov Macario DO [facility] 8 - 8 In-person encounter Office Visit Dov Macario DO [facility] Chest pain-type to be determined 9 - 7 In-person encounter Office Visit Allan Pagan Office 1 - 1 In-person encounter Office Visit Dov Macario DO [facility] 5 - 5 In-person encounter Office Visit Dov Macario DO [facility] Office 1 - 1 In-person encounter Office Visit Dov Macario DO [facility] DizzinessChest pain-type to be determined 9 - 9 In-person encounter Office Visit Dov Macario DO [facility] 8 - 8 In-person encounter Office Visit Dov Macario DO [facility] Office Dyspnea on exertionChest mary ann n atypicalCarotid artery stenosis - bilateralHypercholesterolemia 6 - 6 In-person encounter Office Visit Dov Macario DO [facility] Syncope vasovagal seems likelyPalpitations 4 - 4 In-person encounter Office Visit Dov Guido Office Chest pain-type to be determinedClaudication Intermittent 5 - 5 In-person encounter Office Visit Dov Macario DO [facility] Family Hx heart disease VITAL SIGNS Date Observation Value Provider Body Mass Index (Ratio) 24.62 kg/m2 [facility] Barry Renaldo blood pressure, diastolic 73 mm[Hg] [facility], systolic 120 mm[Hg] Maggie [facility] oxygen saturation, oximetry 99 % [facility] pulse rate 66 /min [facility] respiratory rate E&M 12 /min [facility] weight E&M 139 [lb_av] [facility] height E&M 63 [in_i] [facility] blood pressure, cuff size regular chicho Worrell Body Mass Index (Ratio) 25.15 kg/m2 [facility] Barry Renaldo blood pressure, diastolic 70 mm[Hg] Li nkLogic blood pressure, systolic 104 mm[Hg] Delilah kLogic blood pressure, diastolic 70 mm[Hg] Luanne motta Jaramillo blood pressure, systolic 104 mm[Hg] Yoli sin Jaramillo blood pressure, cuff size regular Luanne arorae Jaramillo pulse rate 70 /min [facility] [facility] oxygen saturation, oximetry 98 % Janina Jaramillo weight E&M 142 [lb_av] Janina [facility] height E&M 63 [in_i] [facility] Body Mass Index (Ratio) 26.04 kg/m2 [facility] Barry Renaldo [place] blood pressure, diastolic 75 mm[Hg] Anju Frey blood pressure, systolic 102 mm[Hg] [facility] pulse rate 62 /min [facility] oxygen saturation, oximetry 97 % [facility] respiratory rate E&M 16 /min [facility] blood pressure, cuff size regular [facility] weight E&M 147 [lb_av] [facility] height E&M 63 [in_i] [facility] Body Mass Index (Ratio) 27.63 kg/m2 [facility] blood pressure, diastolic 66 mm[Hg] An [facility] blood pressure, systolic 97 mm[Hg] Any pooja Max pulse rate 65 /min Radha Max oxygen saturation, oximetry 99 % Radha Max weight E&M 156 [lb_av] Radha Max blood pressure, cuff size large An marialuisa Max height E&M 63 [in_i] Radha Max Body Mass Index (Ratio) 27.81 kg/m2 [facility] Barry [facility] blood pressure, diastolic 62 mm[Hg] Yenni nkLog blood pressure, systolic 94 mm[Hg] Delilah kLog blood pressure, cuff size regular [facility] blood pressure, diastolic 62 mm[Hg] [facility] blood pressure, systolic 94 mm[Hg] Melania ri Jon oxygen saturation, oximetry 99 % Connie Jon respiratory rate E&M 14 /min Connie esparza pulse rate 74 /min Connie Suhail [facility] weight E&M 157 [lb_av] Connie Kimberleynenfe [...] kLogic blood pressure, resting No Rey ty Jose E blood pressure, cuff size regular Kr isty Jose E weight E&M 147 [lb_av] Corazon [place] respiratory rate E&M 18 /min Corazon Jose E pulse rate 67 /min Corazon Jose E blood pressure, diastolic 54 mm[Hg] Kr isty [place] blood pressure, systolic 92 mm[Hg] Kri sty Jose E oxygen saturation, oximetry 99 % Corazon [place] height E&M 63 [in_i] Corazon [place] Body Mass Index (Ratio) 22.49 kg/m2 April Reddy Renaldo DO blood pressure, cuff size regular Kr isty Jose E blood pressure, diastolic 60 mm[Hg] Kr isty Jose E blood pressure, systolic 100 mm[Hg] Kri sty [place] pulse rate 87 /min Corazon oxygen saturation, oximetry 100 % Corazon respiratory rate E&M 19 /min Corazon weight E&M 127 [lb_av] Corazon height E&M 63 [in_i] Corazon Body Mass Index (Ratio) 21.61 kg/m2 [facility] Barry Macario weight E&M 122 [lb_av] [facility] height E&M 63 [in_i] [facility] Body Mass Index (Ratio) 23.03 kg/m2 [facility] Barry [facility] blood pressure, diastolic 70 mm[Hg] Jerry Northby blood pressure, systolic 102 mm[Hg] Jasmyne dario oxygen saturation, oximetry 95 % Corazon respiratory rate E&M 16 /min Corazon pulse rate 58 /min Cor[facility]on blood pressure, cuff size regular Jerry sanford weight E&M 130 [lb_av] Corazon height E&M 63 [in_i] Corazon Body Mass Index (Ratio) 23.38 kg/m2 [facility] Barry [facility] pulse rate 57 /min Alexei [facility] oxygen saturation, oximetry 98 % Alexei Rodriguez blood pressure, diastolic 58 mm[Hg] Chaz Rodriguez blood pressure, systolic 94 mm[Hg] Rhiannon Rodriguez blood pressure, resting No Rhiannonr martha Rodriguez respiratory rate E&M 16 /min Alexei Rodriguez height E&M 63 [in_i] Alexei [facility] weight E&M 132 [lb_av] Alexei Mayers ski [...] LinkLogic 3.5-5.2 sodium, serum 141 mmol/L LinkLogic [phone]/03/ 16 urea nitrogen/creatinine ratio, serum 18 LinkLogic [...] Not Estab. platelet count 235 X10E3/UL LinkLogic [phone]/03/ 15 red blood cell distribution width 12.3 [...] Filtration Rate (calc) 105 mL/min/{ 1.73_m2} [place] [address] cholesterol, non-HDL, total 95 mg/dL [facility] [address] HDL CHOLESTEROL 54 mg/dL LinkLogic >=40 Normal , [place] [address] triglyceride, serum, fasting 54 mg/dL LinkLogic <=149 Normal , [place] [address] cholesterol, serum 149 mg/dL LinkLogic 30-199 Normal , [place] [address] aspartate aminotransferase (SGOT), serum 30 1/L LinkLogic 10-45 Normal [place] [address] alanine aminotransferase (SGPT), serum 30 1/L LinkLogic 7-45 Normal , [place] [address] Alkaline phosphatase 62 LinkLogic 40-130 Normal C, [place] [address] albumin, serum 4.3 g/dL LinkLogic 3.5-5.0 Normal [place] [address] protein, total, serum 7.3 g/dL LinkLogic 6.5-8.5 Normal [place] [address] bilirubin, serum, total 0.4 mg/dL LinkLogic 0.1-1.2 Normal [place] [address] calcium, serum 8.4 mg/dL LinkLogic 8.5-10.3 Low C, [place] [address] blood glucose, random 107 mg/dL LinkLogic 70-199 Normal , [place] [address] creatine, serum 0.66 mg/dL LinkLogic 0.60-1.10 Normal C, [place] [address] urea nitrogen, blood 11 mg/dL LinkLogic 8-25 Normal C, [place] [address] anion gap, serum 12 mmol/L LinkLogic 2-15 Normal C, [place] [address] carbon dioxide, venous blood 20 mmol/L LinkLogic 22-32 Low C, [place] [address] chloride, serum 105 mmol/L LinkLogic 97-110 Normal , [place] [address] potassium, serum 4.3 MMOL/L LinkLogic 3.3-4.9 Normal , [place] [address] sodium, serum 137 mmol/L LinkLogic 135-145 Normal C, [place] [address] thyroid stimulating hormone, serum 1.40 MCIUNIT/ ML LinkLogic 0.30-4.20 Normal , [place] [address] Absolute Basophils 0.0 K/CUMM LinkLogic 0.0-0.1 Normal , [place] [address] Absolute Monocytes 0.4 K/CUMM LinkLogic 0.2-0.8 Normal , [place] [address] Absolute Lymphocytes 1.1 K/CUMM LinkLogic 0.8-3.3 Normal , [place] [address] Absolute Neutrophils 2.5 K/CUMM LinkLogic 1.7-6.5 Normal C, [place] [address] nucleated red blood cells as percent of [...] Rate (calc) 108 mL/min/{ 1.73_m2} LinkLogic C, [place] [address] cholesterol, non-HDL, total 102 mg/dL LinkLogic C, [place] [address] HDL CHOLESTEROL 63 mg/dL LinkLogic >=40 Normal , [place] [address] triglyceride, serum, fasting 51 mg/dL LinkLogic <=149 Normal C, [place] [address] cholesterol, serum 165 mg/dL LinkLogic 30-199 Normal , [place] [address] aspartate aminotransferase (SGOT), serum 17 1/L LinkLogic 10-45 Normal C, [place] [address] alanine aminotransferase (SGPT), serum 21 1/L LinkLogic 7-45 Normal C, [place] [address] Alkaline phosphatase 66 LinkLogic 40-130 Normal C, [place] [address] albumin, serum 4.3 g/dL LinkLogic 3.5-5.0 Normal C, [place] [address] protein, total, serum 7.1 g/dL LinkLogic 6.5-8.5 Normal , [place] [address] bilirubin, serum, total 0.9 mg/dL LinkLogic 0.1-1.2 Normal , [place] [address] calcium, serum 8.4 mg/dL LinkLogic 8.5-10.3 Low C, [place] [address] blood glucose, random 102 mg/dL LinkLogic 70-199 Normal , [place] [address] creatine, serum 0.62 mg/dL LinkLogic 0.60-1.10 Normal , [place] [address] urea nitrogen, blood 12 mg/dL LinkLogic 8-25 Normal C, [place] [address] anion gap, serum 12 mmol/L LinkLogic 2-15 Normal C, [place] [address] carbon dioxide, venous blood 22 mmol/L LinkLogic 22-32 Normal C, [place] [address] chloride, serum 105 mmol/L LinkLogic 97-110 Normal C, [place] [address] potassium, serum 4.1 MMOL/L LinkLogic 3.3-4.9 Normal C, [facility] [address] [facility] [address] sodium, serum 139 mmol/L LinkLogic 135-145 Normal C, [address] [address] lipoprotein, beta, serum, point, quantitative, calculated 135 [...] LinkLogic 3.5-5.2 sodium, serum 137 mmol/L LinkLogic [phone]/04/ 17 urea nitrogen/creatinine ratio, serum 14 LinkLogic [...] Payer name Policy type / Coverage type [employer] [place] [employer] party ID [employer] Commercial insurance co [facility] [id number] [facility] Medicaid 1 [id number] ADVANCE DIRECTIVES Name Date DISCUSSED - NO DECISION MADE TREATMENT PLAN Date Name Performer [id number],C, L DL 135 Trigs 73 in . L abs 03/23: chem ok, LDL 92 Trigs 51 r echeck in this upcoming march range g oal LDL < 70 Her updated medication list for this problem includes: Rosuvastatin 20 Mg Tablet (Rosuvastatin) ..... Take 1 tablet by mouth once a day Dov Barry Renaldo [place] [id number],C, m oderate bilateral 02/2020 c ta denied r epeat duplex moderate ica dz bilaterally r epeat in Carotid duplex 02/21 moderate LICA stenosis. a spirin o n statin Dov Macario DO [id number],C, n ormal telesentry i advised her to decrease caffeine intake. H er updated medication list for this problem includes: Aspirin 81 Mg Tablet,delayed Release (dr/ec) (Aspirin) ..... 1 tablet by mouth once a day Dov Macario DO [id number],C, n ormal telesentry i advised her to decrease caffeine intake. H er updated medication list for this problem includes: Aspirin 81 Mg Tablet,delayed Release (dr/ec) (Aspirin) ..... 1 tablet by mouth once a day Dov Macario [id number],C,L DL 135 Trigs 73 in 21. H er updated medication list for this problem includes: Rosuvastatin 20 Mg Tablet (Rosuvastatin) ..... Take 1 tablet by mouth once a day Dov Macario DO [id number],C, m oderate bilateral 02/2020 c ta denied r epeat duplex 21 moderate ica dz bilaterally r epeat in Carotid duplex 02/21 moderate LICA stenosis. a spirin o n statin Dov Barrysebastian Macario DO [id number],B, n ormal telesentry last month i advised her to decrease caffeine intake. H er updated medication list for this problem includes: Aspirin 81 Mg Tablet,delayed Release (dr/ec) (Aspirin) ..... 1 tablet by mouth once a day Allan Hancock MD [id number],B, n ormal telesentry last month i advised her to decrease caffeine intake. Allan Hancock MD [id number],C, m oderate bilateral 02/2020 c ta denied r epeat duplex 21 moderate ica dz bilaterally per Dr Macario r epeat in a spirin o n statin Allan Hancock MD [id number],C, H er updated medication list for this problem includes: Rosuvastatin 20 Mg Tablet (Rosuvastatin) ..... Take 1 tablet by mouth once a day Allan Hancock MD [id number],C, R derrickiewed her past testing including negative [...] mouth once a day Allan Hancock MD [id number],C, t gab in 02/2020 was nml, nsr h aving more palps Dov Macario DO [id number],C, m oderate bilateral 02/2020 c ta denied r epeat duplex 21 moderate ica dz bilaterally r epeat in a spirin o n statin Dov Macario DO [id number],C, L abs 08/21 LDL 91, Trigs 47 [...] medical condition(s) listed above for patient. Dov Macaroi DO Cardiology: n ormal telesentry i advised [...] g oal LDL < 70 c onsider [facility] prevent. she is interested. has first degree [...] in 22 a spirin o n statin lAlan Hancock MD Cardiology: H er updated medication [...] (Rosuvastatin calcium) ..... One tab. daily Dov Macairo DO TeleHealth: m oderate bilateral 02/2020 c ta denied r epeat duplex 21 a spirin o n statin Dov Macario DO TeleHealth: t gab in 02/2020 was nml, nsr no significant arrhtyhmias Dvo Macario DO TeleHealth: m oderate bilateral c [...]
--- OUTSIDE RECORDS SUMMARY | 2025-04-20 07:41 | XMS_ITS | Clinical Summary ---
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 Gender Identity Not on file Sexual Orientation Not on file Occupation Industry Job Start Date Job End Date Not on file Not on file Not on file Not on file Not on file Not on file Not on file Not on file Last Filed Vital Signs Vital Sign Reading Time Taken Comments Blood Pressure 101/63 10/07/2024 5:12 PM 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 Pulse 76 10/07/2024 5:12 PM 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 Temperature 36.6 C (97.9 F) 10/07/2024 5:12 PM 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 Respiratory Rate 16 04/11/2024 12:31 PM CDT Oxygen Saturation 99% 10/07/2024 5:12 PM 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 Inhaled Oxygen Concentration - - Weight 63.5 kg (140 lb) 10/07/2024 5:12 PM 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
== END 2025-04-20 07:39 | disposition home or self-care (01) ==
PROVIDERS: PCP Nurse Practitioner Family; Visit Provider Nurse Practitioner Family
DX: K21.00 Gastro-esophageal reflux disease with esophagitis, without bleeding (principal)
CPT/HCPCS: 78227; A9537; J2805